=== PATIENT | male | born 1940 | race African-American/Black ===

== ENCOUNTER 2017-04-30 17:06 | Inpatient (IN) | payer OTHER, MEDICARE ==
[2017-04-30] VITALS (18 sets, daily range): BP systolic 50–162; BP diastolic 34–86; PULSE 91–148; RESP 14–20; TEMP 97.2–99.4; O2SAT 80–100
[2017-04-30] MEDS: CHLORHEXIDINE 0.12% (ORAL KIT) 15 ML CUP MT SCH (02:00)
[2017-04-30] MEDS ORDERED: PIPERACIL-TAZO 4.5 GM PREMIX 100 ML IV STA (17:47)
[2017-04-30] MEDS ORDERED: SODIUM CHLOR 0.9% 1000 ML INJ 1,000 ML IV ONE (17:47)
[2017-04-30] MEDS ORDERED: NOREPINEPHRINE-DEXTROSE DRIP 250 ML IV PRN (18:00)
[2017-04-30] MEDS ORDERED: RESP: ALBUTEROL 2.5 MG/IPRATROPIUM 0.5 MG NEB (SCH) NEB ONE (18:00)
[2017-04-30] MEDS ORDERED: VANCOMYCIN INJ 1,000 MG in SODIUM CHLOR 0.9% 250 ML INJ 250 ML IV ONE (18:00)
[2017-04-30] MEDS ORDERED: TERBUTALINE INJ 1 MG/ML AMP SQ PRN (18:00)
--- NOTE | 2017-04-30 18:21 | RADRPT ---
EXAM DATE/TIME: 04/30/2017 18:00 [facility] COMPARISON: No previous studies available for comparison. INDICATIONS : Post intubation and central line placement. MEDICAL HISTORY : Unobtainable. SURGICAL HISTORY : Unobtainable. ENCOUNTER: Initial ACUITY: 1 day PAIN SCORE: Non-responsive. LOCATION: Bilateral chest FINDINGS: I don't have any prior cell. Basilar predominant consolidation and considerable volume loss seen on t he right. There is mild bibasilar consolidation on the left. Small, bilateral pleural effusions are s uspected on both sides. No pneumothorax. Endotracheal tube tip is approximately 4.9 cm above the thomas. There is a left internal jugular cent ral venous catheter with tip in the superior vena cava. CONCLUSION: Right greater the left basilar consolidation. There is considerable right-sided volume loss. Endotrac heal tube and left IJ line appropriate positions as above. Sonu Wesley MD on April 30, 2017 at 18:17 Board Certified Radiologist. This report was verified electronically.
[2017-04-30 18:24] LABS: AUTOMATED NEUTROPHIL # 4.3 TH/MM3 (1.8-7.7); BASOPHIL % 0.3 % (0.0-2.0); HEMATOCRIT 48.1 % (39.0-51.0); HEMOGLOBIN 15.4 GM/DL (13.0-17.0); LYMPH % 27.6 % (9.0-44.0); LYMPHOCYTE # 2.1 TH/MM3 (1.0-4.8); MEAN CELL VOLUME 98.4 FL (80.0-100.0); MEAN CORPUSCULAR HEMOGLOBIN 31.4 PG (27.0-34.0); MEAN CORPUSCULAR HGB CONC 31.9 % (32.0-36.0); MEAN PLATELET VOLUME 8.6 FL (7.0-11.0); MONO % 15.8 % (0.0-8.0); MONOCYTE # 1.2 TH/MM3 (0-0.9); NEUT % 56.3 % (16.0-70.0); PLATELET COUNT 136 TH/MM3 (150-450); RED BLOOD COUNT 4.89 MIL/MM3 (4.50-5.90); WHITE BLOOD COUNT 7.7 TH/MM3 (4.0-11.0)
[2017-04-30 18:28] LABS: INTERNATIONAL NORMALIZED RATIO 1.1 RATIO; PROTHROMBIN TIME - PATIENT 11.4 SEC (9.8-11.6)
[2017-04-30 18:31] LABS: AMORPHOUS SEDIMENT, URINE RARE; BACTERIA, URINE MOD /hpf; BLOOD, URINE MOD (NEG); GLUCOSE,URINE NEG (NEG); HYALINE CAST, URINE 17 /lpf (RARE); KETONE, URINE NEG (NEG); MUCUS URINE FEW /lpf (OCC); NITRITE,URINE NEG (NEG); PH, URINE 5.5 (5.0-8.5); SQUAMOUS EPITHELIAL CELL URINE <1 /hpf (0-5); URINE COLOR LIGHT-RED (YELLW/STRAW); URINE LEUKOCYTE ESTERASE NEG (NEG)
[2017-04-30 18:35] LABS: BILIRUBIN, URINE NEG (NEG)
[2017-04-30 18:39] LABS: ALT (GPT) 33 U/L (12-78)
[2017-04-30 18:41] LABS: ALBUMIN 2.5 GM/DL (3.4-5.0); AST (GOT) 99 U/L (15-37); BICARBONATE 28.8 MEQ/L (21.0-32.0); BLOOD UREA NITROGEN 48 MG/DL (7-18); CALCIUM 8.4 MG/DL (8.5-10.1); CHLORIDE 98 MEQ/L (98-107); CREATININE 1.58 MG/DL (0.60-1.30); GLOMERULAR FILTRATION RATE 52 ML/MIN (>89); GLUCOSE,RANDOM 175 MG/DL (74-106); SODIUM (NA) 142 MEQ/L (136-145)
[2017-04-30] MEDS: NOREPINEPHRINE 4 MG/D5W 250 ML IV PRN ×2 (18:49→23:16)
[2017-04-30 18:53] LABS: ALKALINE PHOSPHATASE 103 U/L (45-117); TOTAL BILIRUBIN ADULT 1.2 MG/DL (0.2-1.0); TOTAL PROTEIN 6.8 GM/DL (6.4-8.2); TROPONIN I 0.07 NG/ML (0.02-0.05)
[2017-04-30] MEDS ORDERED: FUROSEMIDE 20 MG/2 ML VIAL IV PUSH ONE (19:00)
--- NOTE | 2017-04-30 19:04 | PD ---
HPI Chief Complaint: Code Blue Time Seen by Provider: 17:47 Travel History International Travel<30 days: No Contact w/Intl Traveler<30days: No Traveled to known affect area: No History of Present Illness HPI Patient is a 77-year-old male brought in by EMS status post cardiac arrest. EMS states they gave him 3 epinephrine in a dose of bicarb with return of spontaneous circulation after approximately 15-20 minutes. Family states that they were with him, he seemed to perhaps be a little short of breath, but was not complaining of anything. One son left and 30 minutes later another son arrived and found him slumped in the chair. Family states he has a history of high blood pressure and prostate cancer, no heart problems that they know of. Patient is unresponsive, intubated, cannot provide history. PFSH Past Medical History Medical History: Unable to Obtain Tetanus Vaccination: Unknown Past Surgical History Surgical History: Unable to Obtain Social History Alcohol Use: No (UNABLE TO OBTAIN) Tobacco Use: No (UNABLE TO OBTAIN) Substance Use: No (UNABLE TO OBTAIN) Allergies-Medications (Allergen,Severity, Reaction): Coded Allergies: Unable to Assess (Verified Allergy, Unknown, 04/30/17) Reported Meds & Prescriptions Reported Meds & Active Scripts Active Active Prescriptions or Reported Medications Unobtainable Review of Systems ROS Limitations: Clinical Condition Physical Exam Exam Limitations: Clinical Condition Narrative GENERAL: Unresponsive, intubated. SKIN: Focused skin assessment warm/dry. No wounds or signs of infection. HEAD: Atraumatic. Normocephalic. EYES: Pupils fixed and dilated. No scleral icterus. ENT: No nasal bleeding or discharge. Mucous membranes pink and moist. NECK: Trachea midline. Positive JVD CARDIOVASCULAR: Regular rate and rhythm. No murmur appreciated. RESPIRATORY: Crackles in both lungs. Breath sounds equal bilaterally. GASTROINTESTINAL: Abdomen soft, non-tender, nondistended. MUSCULOSKELETAL: No obvious deformities. No clubbing. No cyanosis. No edema. NEUROLOGICAL: Unresponsive, no spontaneous movements. Data Data Last Documented VS Vital Signs Date Time Temp Pulse Resp B/P (MAP) Pulse Ox O2 Delivery O2 Flow Rate FiO2 04/30/17 18:49 124 82/51 04/30/17 18:42 18 90 Ventilator 04/30/17 18:18 100 04/30/17 17:39 97.9 Orders Orders Complete Blood Count With Diff (04/30/17 17:47) Comprehensive Metabolic Panel (04/30/17 17:47) Prothrombin Time / Inr (Pt) (04/30/17 17:47) Act Partial Throm Time (Ptt) (04/30/17 17:47) Lactic Acid Sepsis Protocol (04/30/17 17:47) Ckmb (Isoenzyme) Profile (04/30/17 17:47) Troponin I (04/30/17 17:47) Urinalysis - C+S If Indicated (04/30/17 17:47) Blood Culture (04/30/17 17:47) Chest, Single Ap (04/30/17 17:47) Blood Glucose (04/30/17 17:47) Ecg Monitoring (04/30/17:47) Iv Access Insert/Monitor (04/30/17:47) Oximetry (04/30/17 17:47) Oxygen Administration (04/30/17 17:47) Ct Brain W/O Iv Contrast(Rout) (04/30/17 17:47) Piperacil-Tazo 4.5 Gm Premix (Zosyn 4.5 (04/30/17 17:47) Sodium Chlor 0.9% 1000 Ml Inj (Ns 1000 M (04/30/17 17:47) Vancomycin Inj (Vancomycin Inj) (04/30/17 18:00) Terbutaline Inj (Brethine Inj) (04/30/17 18:00) Albuterol-Ipratropium Neb (Duoneb Neb) (04/30/17 18:00) Norepinephrine-Dextrose Drip (Levophed-D (04/30/17 18:30) Urine Culture (04/30/17 17:50) Furosemide Inj (Lasix Inj) (05/01/17 09:00) CKMB (04/30/17 17:50) CKMB% (04/30/17 17:50) ^ Orogastric Tube (04/30/17 18:53) Insert Temp Sensing Parikh Cath (04/30/17 18:53) Furosemide Inj (Lasix Inj) (04/30/17 19:00) Labs Laboratory Tests Test 04/30/17 17:50 04/30/17 18:12 White Blood Count 7.7 TH/MM3 Red Blood Count 4.89 MIL/MM3 Hemoglobin 15.4 GM/DL Hematocrit 48.1 % Mean Corpuscular Volume 98.4 FL Mean Corpuscular Hemoglobin 31.4 PG Mean Corpuscular Hemoglobin Concent 31.9 % Red Cell Distribution Width 15.0 % Platelet Count 136 TH/MM3 Mean Platelet Volume 8.6 FL Neutrophils (%) (Auto) 56.3 % Lymphocytes (%) (Auto) 27.6 % Monocytes (%) (Auto) 15.8 % Eosinophils (%) (Auto) 0.0 % Basophils (%) (Auto) 0.3 % Neutrophils # (Auto) 4.3 TH/MM3 Lymphocytes # (Auto) 2.1 TH/MM3 Monocytes # (Auto) 1.2 TH/MM3 Eosinophils # (Auto) 0.0 TH/MM3 Basophils # (Auto) 0.0 TH/MM3 CBC Comment AUTO DIFF Prothrombin Time 11.4 SEC Prothromb Time International Ratio 1.1 RATIO Activated Partial Thromboplast Time 29.4 SEC Urine Color LIGHT-RED Urine Turbidity HAZY Urine pH 5.5 Urine Specific [place] 1.021 Urine Protein 100 mg/dL Urine Glucose (UA) NEG mg/dL Urine Ketones NEG mg/dL Urine Occult Blood MOD Urine Nitrite NEG Urine Bilirubin NEG Urine Urobilinogen 4.0 MG/DL Urine Leukocyte Esterase NEG Urine RBC 1 /hpf Urine WBC 2 /hpf Urine Squamous Epithelial Cells <1 /hpf Urine Amorphous Sediment RARE Urine Bacteria MOD /hpf Urine Hyaline Casts 17 /lpf Urine Mucus FEW /lpf Microscopic Urinalysis Comment CATH-CULTURE IND Blood Urea Nitrogen 48 MG/DL Creatinine 1.58 MG/DL Random Glucose 175 MG/DL Total Protein 6.8 GM/DL Albumin 2.5 GM/DL Calcium Level 8.4 MG/DL Alkaline Phosphatase 103 U/L Aspartate Amino Transf (AST/SGOT) 99 U/L Alanine Aminotransferase (ALT/SGPT) 33 U/L Total Bilirubin 1.2 MG/DL Sodium Level 142 MEQ/L Potassium Level 3.8 MEQ/L Chloride Level 98 MEQ/L Carbon Dioxide Level 28.8 MEQ/L Anion Gap 15 MEQ/L Estimat Glomerular Filtration Rate 52 ML/MIN Total Creatine Kinase 1930 U/L Troponin I 0.07 NG/ML MDM Medical Decision Making Medical Screen Exam Complete: Yes Emergency Medical Condition: Yes Interpretation(s) ECG shows A. fib with ST depression in leads V4 through V5. Differential Diagnosis NM versus pneumonia versus sepsis versus ICH Narrative Course Patient is a 77-year-old male who comes in status post cardiac arrest. Patient is unresponsive on arrival, intubated. ET tube was confirmed in place on arrival. Patient started on levo fed on arrival, given a liter of fluids. Labs sent show an elevated total CK. BUN is 48, creatinine is 1.58. Troponin is 0.07 CT head ordered. Chest x-ray shows that ET tube in place, large pulmonary edema. Patient given a small dose of Lasix. Patient will be admitted for further management. Critical Care Narrative Aggregate critical care time was 45 minutes. Time to perform other separately billable procedures was not included in the critical care time. My time did not include minutes spent treating any other patients simultaneously or on activities that did not directly contribute to the patient's treatment. The services I provided to this patient were to treat and/or prevent clinically significant deterioration that could result in: Serious illness or I provided critical care services requiring my management, as noted below: Chart data review, documentation time, medication orders and management, vital sign assessments/reviewing monitor data, ordering and reviewing lab tests, ordering and interpreting/reviewing x-rays and diagnostic studies, care of the patient and discussion of the patient with the admitting physicians. Procedures Procedure Narrative CENTRAL VENOUS LINE: The site was prepped with Betadine and sterilely draped. It was infiltrated with 1% lidocaine plain. The deep vein was cannulated using normal Seldinger technique. A triple lumen central line was placed in the left IJ site and secured with simple interrupted suture. The site was sterilely dressed. The patient tolerated the procedure well. Diagnosis Primary Impression: Cardiac arrest Additional Impressions: Respiratory failure Qualified Codes: J96.01 - Acute respiratory failure with hypoxia; J96.02 - Acute respiratory failure with hypercapnia Rhabdomyolysis Qualified Codes: M62.82 - Rhabdomyolysis Admitting Information Admitting Physician Requests: Admit Scripts Unable to Obtain Active Prescriptions or Reported Meds Debra Khan MD Apr 30, 2017 19:04
[2017-04-30 19:11] LABS: LACTIC ACID SEPSIS PROTOCOL 7.1 mmol/L (0.4-2.0)
[2017-04-30 19:23] LABS: BANDS 12 % (0-6); CORRECTED NUCLEATED RBC 11 /100 WBC (0-0); LYMPHOCYTES 17 % (9-44); METAMYELOCYTES 1 % (0-1); MONOCYTES 22 % (0-8); NEUTROPHIL # MANUAL DIFF 4.7 TH/MM3 (1.8-7.7); NUCLEATED RED BLOOD CELL 11 (0-0); POLYS (SEG NEUTROPHILS) 48 % (16-70)
[2017-04-30 19:24] LABS: OVALOCYTES 1+ (NORMAL)
[2017-04-30 19:25] LABS: BURR CELLS 1+ (NORMAL)
--- NOTE | 2017-04-30 19:37 | RADRPT ---
EXAM DATE/TIME: 04/30/2017 19:29 [facility] COMPARISON: No previous studies available for comparison. INDICATIONS : Altered mental status, post code. RADIATION DOSE: 37.96 CTDIvol (mGy) MEDICAL HISTORY : Non-responsive. SURGICAL HISTORY : Non-responsive. ENCOUNTER: Initial ACUITY: 1 day PAIN SCALE: Non-responsive LOCATION: cranial TECHNIQUE: Multiple contiguous axial images were obtained of the head. Using automated exposure control and adj ustment of the mA and/or kV according to patient size, radiation dose was kept as low as reasonably a chievable to obtain optimal diagnostic quality images. DICOM format image data is available electro nically for review and comparison. FINDINGS: Diffuse low attenuation brain parenchyma with minimal montero/white matter differentiation. No bleed. No midline shift. No perceptible mass lesion. CONCLUSION: Diffusely abnormal brain with edema and loss of montero-white differentiation, presumably a global hypox ic event. No bleed or focal abnormality demonstrated. Sonu Wesley MD on April 30, 2017 at 19:33 Board Certified Radiologist. This report was verified electronically.
[2017-04-30] MEDS ORDERED: MISCELLANEOUS NURSING INFORMATION XX SCH (20:00)
[2017-04-30] MEDS ORDERED: BISACODYL 10 MG SUPP RECTAL PRN (20:00)
[2017-04-30] MEDS ORDERED: SENNOSIDES 8.6 MG TAB PO PRN (20:00)
[2017-04-30] MEDS ORDERED: SODIUM CHLORIDE 0.9% FLUSH 10 ML FLUSH IV FLUSH PRN (20:00)
[2017-04-30] MEDS ORDERED: MAGNESIUM HYDROXIDE SUSP 30 ML CUP PO PRN (20:00)
[2017-04-30] MEDS ORDERED: CHLORHEXIDINE GLUCONATE 2 % 1 PACK (2 CLOTHS) TOP PRN (20:00)
[2017-04-30] MEDS ORDERED: ONDANSETRON HCL 4 MG/2 ML VIAL IV PUSH PRN (20:00)
[2017-04-30] MEDS ORDERED: LACTULOSE SYRUP 20 GM/30 ML CUP PO PRN (20:00)
--- NOTE | 2017-04-30 20:44 | HHI.HP ---
HPI Service Critical Care Medicine Primary Care Physician Unknown Admission Diagnosis Cardiac arrest, ARDS Diagnosis: Travel History International Travel<30 Days: No Contact w/Intl Traveler <30 Da: No Traveled to Known Affected Are: No History of Present Illness 77-year-old male admitted status post cardiac arrest. Per EMS report they gave him 3 epinephrine and a dose of bicarb with return of spontaneous circulation after approximately 15-20 minutes. Family states that they were with him, he seemed to perhaps be a little short of breath, but was not complaining of anything. One son left and 30 minutes later another son arrived and found him slumped in the chair. Family states he has a history of high blood pressure and prostate cancer, no heart problems that they know of. In the emergency department patient is intubated, unresponsive, with myoclonic jerks in all 4 extremities. Review of Systems ROS Unable to obtain Past Family Social History Allergies: Coded Allergies: Unable to Assess (Verified Allergy, Unknown, 04/30/17) Past Medical History Hypertension Prostate cancer Past Surgical History Unable to obtain Reported Medications Reported Meds & Active Scripts Active Active Prescriptions or Reported Medications Unobtainable Active Ordered Medications Current Medications Medications (Trade) Dose Ordered Sig/Chidi Route PRN Reason Start Time Stop Time Status Last Admin Dose Admin Terbutaline Sulfate (Brethine Inj) 1 mg UNSCH PRN SQ For Extravasation 04/30/17 18:00 Norepinephrine Bitartrate 250 ml @ 7.5 mls/hr TITRATE PRN IV BLOOD PRESSURE MANAGEMENT 04/30/17 18:30 04/30/17 23:16 Sodium Chloride 1,000 ml @ 124 mls/hr Q8H4M IV 04/30/17 20:00 04/30/17 22:52 Sodium Chloride (NS Flush) 2 ml UNSCH PRN IV FLUSH FLUSH AFTER USING IV ACCESS 04/30/17 20:00 Sodium Chloride (NS Flush) 2 ml BID IV FLUSH 04/30/17 21:00 Acetaminophen (Tylenol) 650 mg Q6H PRN PO PAIN 1-10 AND/OR FEVER >101F 04/30/17 20:00 Famotidine (Pepcid Inj) 20 mg Q12HR IV PUSH 04/30/17 21:00 04/30/17 21:24 Lorazepam (Ativan Inj) 1 mg Q1H PRN IV PUSH Agitation/Sedation 04/30/17 20:00 04/30/17 23:17 Artificial Tears (Tears Naturale Opth Soln) 1 drop TID EACH EYE 05/01/17 09:00 Ondansetron HCl (Zofran Inj) 4 mg Q6H PRN IV PUSH NAUSEA OR VOMITING 04/30/17 20:00 Albuterol/ Ipratropium (Duoneb Neb) 1 ampule Q2HR NEB PRN INH WHEEZING 04/30/17 20:00 Heparin Sodium (Porcine) (Heparin Inj) 5,000 units Q8HR SQ 04/30/17 22:00 04/30/17 22:53 Miscellaneous Information 1 [id number] XX 04/30/17 20:00 Chlorhexidine Gluconate (Chlorhexidine 2% Cloth) 3 pack Taper DAILY@04 TOP 05/01/17 04:00 04/27/18 03:59 Chlorhexidine Gluconate (Chlorhexidine 2% Cloth) 3 pack UNSCH PRN TOP HYGIENIC CARE 04/30/17 20:00 Senna/Docusate Sodium (Sophy-Colace) 1 tab BID PO 04/30/17 21:00 Magnesium Hydroxide (Milk Of Magnesia Liq) 30 ml Q12H PRN PO Mild constipation 04/30/17 20:00 Sennosides (Senokot) 17.2 mg Q12H PRN PO Moderate constipation 04/30/17 20:00 Bisacodyl (Dulcolax Supp) 10 mg DAILY PRN RECTAL SEVERE CONSITIPATION 04/30/17 20:00 Lactulose (Lactulose Liq) 30 ml DAILY PRN PO SEVERE CONSITIPATION 04/30/17 20:00 Chlorhexidine Gluconate (Peridex 0.12% Liq) 15 ml BID@08,20 MT 04/30/17 20:00 Midazolam HCl 100 ml @ 2 mls/hr TITRATE PRN IV SEDATION 04/30/17 20:00 04/30/17 21:24 Levetriacetam 100 ml @ 400 mls/hr Q12HR IV 04/30/17 21:00 04/30/17 22:52 Family History Unobtainable Social History Unobtainable Physical Exam Vital Signs Vital Signs Date Time Temp Pulse Resp B/P (MAP) Pulse Ox O2 Delivery O2 Flow Rate FiO2 04/30/17 20:40 94 100 04/30/17 19:30 140 20 124/78 (93) 94 Ventilator 100 04/30/17 19:25 100 100 04/30/17 19:19 97.2 133 20 124/74 (91) 90 Ventilator 100 04/30/17 19:00 138 18 129/84 (99) 91 Ventilator 04/30/17 18:49 124 82/51 04/30/17 18:42 134 18 138/73 (94) 90 Ventilator 04/30/17 18:18 90 Ventilator 100 04/30/17 18:18 90 Ventilator 100 04/30/17 18:15 148 18 114/75 (88) 92 Ventilator 04/30/17 18:00 116 18 82/56 (65) 91 Ventilator 04/30/17 17:47 80 100 04/30/17 17:47 80 15.00 100 04/30/17 17:40 100 04/30/17 17:39 97.9 122 14 162/86 (111) 85 Ventilator 100 04/30/17 17:28 100 04/30/17 17:26 98.1 103 14 106/78 (87) Ventilator 100 04/30/17 17:11 91 16 50/34 (39) 97 Physical Exam GENERAL: Sedated and unresponsive comatose elderly gentleman SKIN: Warm and dry. HEAD: Normocephalic. EYES: No scleral icterus. No injection or drainage. NECK: Supple, trachea midline. No JVD or lymphadenopathy. CARDIOVASCULAR: Regular rate and rhythm without murmurs, gallops, or rubs. RESPIRATORY: Breath sounds equal bilaterally. No accessory muscle use. GASTROINTESTINAL: Abdomen soft, non-tender, nondistended. MUSCULOSKELETAL: No cyanosis, or edema. Myoclonic jerks in all 4 extremities BACK: Nontender without obvious deformity. NEURO EXAM: GCS: 3 Mental Status: The patient is unresponsive to verbal or painful stimuli Laboratory Laboratory Tests Test 04/30/17 17:50 04/30/17 18:12 04/30/17 20:24 White Blood Count 7.7 Red Blood Count 4.89 Hemoglobin 15.4 Hematocrit 48.1 Mean Corpuscular Volume 98.4 Mean Corpuscular Hemoglobin 31.4 Mean Corpuscular Hemoglobin Concent 31.9 Red Cell Distribution Width 15.0 Platelet Count 136 Mean Platelet Volume 8.6 Neutrophils (%) (Auto) 56.3 Lymphocytes (%) (Auto) 27.6 Monocytes (%) (Auto) 15.8 Eosinophils (%) (Auto) 0.0 Basophils (%) (Auto) 0.3 Neutrophils # (Auto) 4.3 Lymphocytes # (Auto) 2.1 Monocytes # (Auto) 1.2 Eosinophils # (Auto) 0.0 Basophils # (Auto) 0.0 CBC Comment AUTO DIFF Differential Total Cells Counted 100 Neutrophils % (Manual) 48 Band Neutrophils % 12 Lymphocytes % 17 Monocytes % 22 Neutrophils # (Manual) 4.7 Metamyelocytes 1 Nucleated Red Blood Cells 11 Differential Comment FINAL DIFF MANUAL Platelet Estimate LOW Platelet Morphology Comment NORMAL Ovalocytes 1+ [place] Cells 1+ Prothrombin Time 11.4 Prothromb Time International Ratio 1.1 Activated Partial Thromboplast Time 29.4 Urine Color LIGHT-RED Urine Turbidity HAZY Urine pH 5.5 Urine Specific [place] 1.021 Urine Protein 100 Urine Glucose (UA) NEG Urine Ketones NEG Urine Occult Blood MOD Urine Nitrite NEG Urine Bilirubin NEG Urine Urobilinogen 4.0 Urine Leukocyte Esterase NEG Urine RBC 1 Urine WBC 2 Urine Squamous Epithelial Cells <1 Urine Amorphous Sediment RARE Urine Bacteria MOD Urine Hyaline Casts 17 Urine Mucus FEW Microscopic Urinalysis Comment CATH-CULTURE IND Blood Gas Puncture Site RT RADIAL Blood Gas Patient Temperature 98.6 Blood Gas HCO3 24 Blood Gas Base Excess -3.5 Blood Gas Oxygen Saturation 94 Arterial Blood pH 7.16 Arterial Blood Partial Pressure CO2 71 Arterial Blood Partial Pressure O2 110 Arterial Blood Oxygen Content 19.6 Arterial Blood Carboxyhemoglobin 2.3 Arterial Blood Methemoglobin 0.3 Blood Gas Hemoglobin 14.8 Oxygen Delivery Device VENTILATOR Blood Gas Ventilator Setting Blood Gas Inspired Oxygen 100 Blood Urea Nitrogen 48 Creatinine 1.58 Random Glucose 175 Total Protein 6.8 Albumin 2.5 Calcium Level 8.4 Alkaline Phosphatase 103 Aspartate Amino Transf (AST/SGOT) 99 Alanine Aminotransferase (ALT/SGPT) 33 Total Bilirubin 1.2 Sodium Level 142 Potassium Level 3.8 Chloride Level 98 Carbon Dioxide Level 28.8 Anion Gap 15 Estimat Glomerular Filtration Rate 52 Total Creatine Kinase 1930 Creatine Kinase MB 24.7 Creatine Kinase MB % 1.3 Troponin I 0.07 Lactic Acid Level 7.1 Date/Time Source Procedure Growth Status 04/30/17 18:15 Blood Peripheral Aerobic Blood Culture Pending Received 04/30/17 18:15 Blood Peripheral Anaerobic Blood Culture Pending Received 04/30/17 17:50 Urine Catheterized Urine Urine Culture Pending Received Result Diagram: 04/30/[id number]/30/171749 Imaging Last [address] 04/30/171746 Signed Impressions: Service Date/Time: April 19:29 - CONCLUSION: Diffusely abnormal brain with edema and loss of montero-white differentiation, presumably a global hypoxic event. No bleed or focal abnormality demonstrated. Sonu Wesley MD Chest X-Ray 04/30/171746 Signed Impressions: Service Date/Time: April 18:00 - CONCLUSION: Right greater the left basilar consolidation. There is considerable right-sided volume loss. Endotracheal tube and left IJ line appropriate positions as above. Sonu Wesley MD Septic Shock Reassessment Septic shock perfusion: reassessment completed Caprini VTE Risk Assessment Caprini VTE Risk Assessment: Mod/High Risk (score >= 2) Caprini Risk Assessment Model Point Value = 1 Point Value = 2 Point Value = 3 Point Value = 5 Age 41-60 Minor surgery BMI > 25 kg/m2 Swollen legs Varicose veins or History of unexplained or recurrent spontaneous Oral contraceptives or hormone replacement Sepsis (< 1 month) Serious lung disease, including pneumonia (< 1 month) Abnormal pulmonary function Acute myocardial infarction Congestive heart failure (< 1 month) History of inflammatory bowel disease Medical patient at bed rest Age 61-74 Arthroscopic surgery Major open surgery (> 45 min) Laparoscopic surgery (> 45 min) Malignancy Confined to bed (> 72 hours) Immobilizing plaster cast Central venous access Age >= 75 History of VTE Family history of VTE Factor V Leiden Prothrombin [id number] Lupus anticoagulant Anticardiolipin antibodies Elevated serum homocysteine Heparin-induced thrombocytopenia Other congenital or acquired thrombophilia Stroke (< 1 month) Elective arthroplasty Hip, pelvis, or leg fracture Acute spinal cord injury (< 1 month) Prophylaxis Regimen Total Risk Factor Score Risk Level Prophylaxis Regimen 0-1 Low Early ambulation 2 Moderate Order ONE of the following: *Sequential Compression Device (SCD) *Heparin 5000 units SQ BID 3-4 Higher Order ONE of the following medications: *Heparin 5000 units SQ TID *Enoxaparin/Lovenox 40 mg SQ daily (WT < 150 kg, CrCl > 30 mL/min) *Enoxaparin/Lovenox 30 mg SQ daily (WT < 150 kg, CrCl > 10-29 mL/min) *Enoxaparin/Lovenox 30 mg SQ BID (WT < 150 kg, CrCl > 30 mL/min) AND/OR *Sequential Compression Device (SCD) 5 or more Highest Order ONE of the following medications: *Heparin 5000 units SQ TID (Preferred with Epidurals) *Enoxaparin/Lovenox 40 mg SQ daily (WT < 150 kg, CrCl > 30 mL/min) *Enoxaparin/Lovenox 30 mg SQ daily (WT < 150 kg, CrCl > 10-29 mL/min) *Enoxaparin/Lovenox 30 mg SQ BID (WT < 150 kg, CrCl > 30 mL/min) AND *Sequential Compression Device (SCD) Assessment and Plan Assessment and Plan Respiratory failure - Status post cardiac arrest - Continue mechanical ventilation - Intubated for an airway protection - No weaning until neurologically improved - Vent bundle - DuoNeb's when necessary Cardiac arrest - Status post prolonged CPR - Likely prolonged downtime prior the CPR - Diffuse anoxic changes on the CT brain - No indication for hypothermia protocol due to already severely damaged 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 Time to perform other separately billable procedures was not included in the critical care time. Baldev Vazquez MD Apr 30, 2017 8:44 pm
[2017-04-30] MEDS ORDERED: RASS Change Order XX ONE (20:45)
[2017-04-30] MEDS: DOCUSATE SODIUM 50 MG/SENNA 8.6 MG TAB PO SCH (21:00)
[2017-04-30] MEDS: SODIUM CHLORIDE 0.9% FLUSH 10 ML FLUSH IV FLUSH SCH (21:00)
[2017-04-30] MEDS: SODIUM CHLOR 0.9% 1000 ML INJ 1,000 ML IV SCH ×2 (21:24→22:52)
[2017-04-30] MEDS: MIDAZOLAM 100 MG/100 ML INJ 100 ML IV PRN (21:24)
[2017-04-30] MEDS: FAMOTIDINE 20 MG/2 ML VIAL IV PUSH SCH (21:24)
[2017-04-30] MEDS: LORazepam 2 MG/ML VIAL IV PUSH PRN ×2 (21:25→23:17)
[2017-04-30] MEDS: levETIRAcetam INJ 100 ML IV SCH (22:52)
[2017-04-30] MEDS: HEPARIN SODIUM - SQ 10,000 UNITS/ML VIAL SQ SCH (22:53)
[2017-05-01] VITALS (12 sets, daily range): BP systolic 79–141; BP diastolic 55–86; PULSE 97–121; RESP 18; TEMP 100.3–103.9; O2SAT 94–98
[2017-05-01] MEDS: LORazepam 2 MG/ML VIAL IV PUSH PRN (01:51)
[2017-05-01] MEDS: CHLORHEXIDINE GLUCONATE 2 % 1 PACK (2 CLOTHS) TOP SCH (04:00)
[2017-05-01] MEDS: ACETAMINOPHEN 325 MG TAB PO PRN ×3 (04:59→21:58)
[2017-05-01] MEDS: HEPARIN SODIUM - SQ 10,000 UNITS/ML VIAL SQ SCH ×3 (04:59→21:56)
[2017-05-01] MEDS: NOREPINEPHRINE 4 MG/D5W 250 ML IV PRN ×3 (04:59→18:49)
[2017-05-01 05:26] LABS: AUTOMATED NEUTROPHIL # 4.9 TH/MM3 (1.8-7.7); BASOPHIL % 0.2 % (0.0-2.0); HEMATOCRIT 49.7 % (39.0-51.0); HEMOGLOBIN 16.8 GM/DL (13.0-17.0); MEAN CELL VOLUME 93.2 FL (80.0-100.0); MEAN CORPUSCULAR HEMOGLOBIN 31.4 PG (27.0-34.0); MEAN CORPUSCULAR HGB CONC 33.7 % (32.0-36.0); MONO % 19.5 % (0.0-8.0); MONOCYTE # 1.4 TH/MM3 (0-0.9); NEUT % 66.3 % (16.0-70.0); PLATELET COUNT 151 TH/MM3 (150-450); RED BLOOD COUNT 5.34 MIL/MM3 (4.50-5.90); RED CELL DISTRIBUTION WIDTH 14.8 % (11.6-17.2); WHITE BLOOD COUNT 7.4 TH/MM3 (4.0-11.0)
[2017-05-01 05:32] LABS: INTERNATIONAL NORMALIZED RATIO 1.1 RATIO; PROTHROMBIN TIME - PATIENT 11.5 SEC (9.8-11.6)
[2017-05-01 05:49] LABS: ALBUMIN 2.6 GM/DL (3.4-5.0); AST (GOT) 141 U/L (15-37); BICARBONATE 31.5 MEQ/L (21.0-32.0); BLOOD UREA NITROGEN 38 MG/DL (7-18); CALCIUM 7.8 MG/DL (8.5-10.1); CHLORIDE 100 MEQ/L (98-107); CREATININE 1.01 MG/DL (0.60-1.30); GLOMERULAR FILTRATION RATE 87 ML/MIN (>89); GLUCOSE,RANDOM 126 MG/DL (74-106); MAGNESIUM 2.2 MG/DL (1.5-2.5); SODIUM (NA) 141 MEQ/L (136-145)
[2017-05-01 05:55] LABS: ALKALINE PHOSPHATASE 99 U/L (45-117); ALT (GPT) 36 U/L (12-78); TOTAL BILIRUBIN ADULT 1.1 MG/DL (0.2-1.0); TOTAL PROTEIN 6.7 GM/DL (6.4-8.2); TROPONIN I 0.35 NG/ML (0.02-0.05)
[2017-05-01 07:11] LABS: BANDS 15 % (0-6); CORRECTED NUCLEATED RBC 3 /100 WBC (0-0); LYMPHOCYTES 16 % (9-44); METAMYELOCYTES 1 % (0-1); MONOCYTES 19 % (0-8); NEUTROPHIL # MANUAL DIFF 4.8 TH/MM3 (1.8-7.7); NUCLEATED RED BLOOD CELL 3 (0-0); POLYS (SEG NEUTROPHILS) 49 % (16-70)
[2017-05-01] MEDS: SODIUM CHLOR 0.9% 1000 ML INJ 1,000 ML IV SCH ×2 (07:14→09:05)
[2017-05-01] MEDS ORDERED: FUROSEMIDE 20 MG/2 ML VIAL IV PUSH SCH (09:00)
[2017-05-01] MEDS ORDERED: ROCURONIUM INJ 50 MG/5 ML VIAL IV ONE (09:00)
[2017-05-01] MEDS: FAMOTIDINE 20 MG/2 ML VIAL IV PUSH SCH ×2 (09:03→21:55)
[2017-05-01] MEDS: levETIRAcetam INJ 100 ML IV SCH ×2 (09:04→21:55)
[2017-05-01] MEDS: DOCUSATE SODIUM 50 MG/SENNA 8.6 MG TAB PO SCH ×2 (09:04→21:56)
[2017-05-01] MEDS ORDERED: Vancomycin Consult Pharmacy 1 EA OTHER SCH (09:15)
[2017-05-01] MEDS ORDERED: VANCOMYCIN INJ 1,000 MG in SODIUM CHLOR 0.9% 250 ML INJ 250 ML IV ONE (09:15)
[2017-05-01] MEDS: CHLORHEXIDINE 0.12% (ORAL KIT) 15 ML CUP MT SCH ×2 (09:16→21:54)
[2017-05-01] MEDS: SODIUM CHLORIDE 0.9% FLUSH 10 ML FLUSH IV FLUSH SCH ×2 (10:04→21:55)
--- NOTE | 2017-05-01 10:12 | PD.CONS ---
Consult Service Palliative Care Consult Requested By Primary Care Physician Unknown Reason for Consultation a. To assist with evaluation and management of symptoms including:shortness of breath b. To assist medical decision maker(s) with: better understanding of current medical conditions; weighing benefits/burdens of medical treatment options; making medical treatment decisions. HPI History of Present Illness Mr. Valencia is a 77 years old with a past medical history of prostate cancer, and hypertension. Patient was brought in by EMS after a cardiac arrest. Per EMS report, patient had return of spontaneous circulation 15-20minutes after they had administered 3 amps epinephrine and 1 amp bicarb. According to family, patient appeared to be short of breath when he was last seen 30 minutes prior to being found by one of his sons slumped over in a chair unresponsive. Patient was intubated in the field. Patient was unresponsive on arrival and was having myoclonic jerks to all 4 extremities in the ER. ER Course: * Vital signs: Pulse 124, BP 82/51, respiratory rate 18, O2 saturation 90% on FiO2 100% * 1000ml NS administered and patient was started on a Levophed drip * EKG revealed A. fib with ST depression in leads V4 through V5 * Head CT revealed diffusely abnormal brain with edema and loss of montero-white differentiation presumably a global hypoxic event. No bleed or focal abnormal mobility demonstrated. * Laboratory workup revealed BUN/creatinine 48/1.58, lactic acid 7.1, total bilirubin 1.2, AST 99, ALT 33, total creatinine kinase 1930, CK-MB 24.7, troponin 0.07 * Chest x-ray revealed right greater than left basilar consolidation. There is considerable right-sided volume loss. * Lasix administered * UA culture indicated * Blood cultures drawn Critical care doctor Dr. Vazquez consulted. Hypothermia protocol not indicated due to severely damaged WAREHOUSE HELPER on arrival. Patient seen and examined on CVICU. Patient is intubated, sedated and on mechanical ventilation. Vent settings PRVC/AC 18/ 550/1.0s/10/100% with O2 saturation of 94%. No spontaneous respirations. Yeehlsejgtg470.2 degrees F. Foster cultures sent, patient started on vancomycin and Zosyn. Chest x-ray today revealed interval improvement of pulmonary vascular congestion bilaterally and right basilar patient is consistent with possible pneumonia. Meeting with patient`s eldest son Hector French Jr and some family friends. Updated on medical status. Obtained psychosocial history and medical history. Reviewed events that happened, prior to hospitalization. Per Manolo Oseguera, patient does not have advanced directives. Addressed code status, discussed risks, benefits and limitations of CPR given recent cardiac arrest. Patient's son stated that he wants patient to remain a full code and wants him to be resuscitated. Explained possible complications that patient will most likely face given the severity of the results from head CT. Family friend present during meeting encouraged patient`s son to press for aggressive treatment despite how bad diagnostic tests are and clinical presentation. Patient`s son stated that at this time he is not ready to "let go", though he stated that he would appreciate updates that way he can make informed decisions. Telephone call to patient`s other two children Luis Antonio Young and Amy Martines. Updated them on patient`s condition and readdressed code status with them. They both want patient to be a full code and they both deferred further medical decision making to their eldest brother Manolo Young. Case discussed with bedside RN and Dr. Ascencio. Function/Cognitive Trajectory Patient was independent with all his ADLs and able to verbalize needs prior to hospitalization. Patient`s son Jagdish Oseguera reported that patient has been complaining of feeling tired for the past few days and complaining of pain to his right knee. Some friends who were in the family conference mentioned that they noted that patient had slurred speech about a day prior to cardiac arrest which resolved by itself. . Review of Systems ROS Limitations: Clinical Condition, Intubated Constitutional: COMPLAINS OF: Fatigue, DENIES: Weight loss Eyes: DENIES: Eye inflammation Ears, nose, mouth, throat: DENIES: Nasal discharge Respiratory: COMPLAINS OF: Shortness of breath, DENIES: Cough Cardiovascular: DENIES: Lower Extremity Edema Gastrointestinal: DENIES: Diarrhea, Nausea, Vomiting Genitourinary: DENIES: Urinary incontinence Musculoskeletal: COMPLAINS OF: Joint pain Hematologic/Lymphatics: DENIES: Bruising Neurologic: DENIES: Localized weakness, Speech Problems Psychiatric: DENIES: Confusion, Depression Other ROS: ROS obtained from EMR, family and clinical observation. . Past Family Social History Coded Allergies: Unable to Assess (Verified Allergy, Unknown, 04/30/17) Past Medical History Hypertension Prostate cancer . Past Surgical History None reported . Reported Medications Hypertension medication per son-does not remember name or dosage . Current Medications Medications (Trade) Dose Ordered Sig/Chidi Route Start Time Stop Time Status Last Admin (Brethine Inj) 1 mg UNSCH PRN SQ 04/30/17 18:00 Norepinephrine Bitartrate 250 ml @ 7.5 mls/hr TITRATE PRN IV 04/30/17 18:30 05/01/17 04:59 Sodium Chloride 1,000 ml @ 124 mls/hr Q8H4M IV 04/30/17 20:00 05/01/17 09:05 (NS Flush) 2 ml UNSCH PRN IV FLUSH 04/30/17 20:00 (NS Flush) 2 ml BID IV FLUSH 04/30/17 21:00 (Tylenol) 650 mg Q6H PRN PO 04/30/17 20:00 05/01/17 04:59 (Pepcid Inj) 20 mg Q12HR IV PUSH 04/30/17 21:00 05/01/17 09:03 (Ativan Inj) 1 mg Q1H PRN IV PUSH 04/30/17 20:00 05/01/17 01:51 (Tears Naturale Opth Soln) 1 drop TID EACH EYE 05/01/17 09:00 (Zofran Inj) 4 mg Q6H PRN IV PUSH 04/30/17 20:00 (Duoneb Neb) 1 ampule Q2HR NEB PRN INH 04/30/17 20:00 (Heparin Inj) 5,000 units Q8HR SQ 04/30/17 22:00 05/01/17 04:59 Miscellaneous Information 1 Q361D XX 04/30/17 20:00 04/30/17 20:00 (Chlorhexidine 2% Cloth) 3 pack Taper DAILY@04 TOP 05/01/17 04:00 04/27/18 03:59 05/01/17 04:00 (Chlorhexidine 2% Cloth) 3 pack UNSCH PRN TOP 04/30/17 20:00 (Sophy-Colace) 1 tab BID PO 04/30/17 21:00 05/01/17 09:04 (Milk Of Magnesia Liq) 30 ml Q12H PRN PO 04/30/17 20:00 (Senokot) 17.2 mg Q12H PRN PO 04/30/17 20:00 (Dulcolax Supp) 10 mg DAILY PRN RECTAL 04/30/17 20:00 (Lactulose Liq) 30 ml DAILY PRN PO 04/30/17 20:00 (Peridex 0.12% Liq) 15 ml BID@08,20 MT 04/30/17 20:00 05/01/17 09:16 Midazolam HCl 100 ml @ 2 mls/hr TITRATE PRN IV 04/30/17 20:00 04/30/17 21:24 Levetriacetam 100 ml @ 400 mls/hr Q12HR IV 04/30/17 21:00 05/01/17 09:04 Piperacillin Sod/ Tazobactam Sod 100 ml @ 200 mls/hr Q6H IV 05/01/17 10:00 Vancomycin HCl 1000 mg/Sodium Chloride 250 ml @ 250 mls/hr ONCE ONCE IV 05/01/17 09:15 05/01/17 10:14 [facility] Pharmacy Profile Note 0 ml @ 0 mls/hr UNSCH OTHER 05/01/17 09:15 Family History Patient has 3 living children and they are all well. Both parents - unknown cause of or any medical history . Substance Use Tobacco: Patient has smoked cigarettes one pack per day for +28 years Alcohol: Occasionally drinks alcohol Prescription med abuse: None reported Illicits: None reported . Psychosocial History Patient was born and raised in [place]. He is . He has 3 adult children, one daughter and 2 sons. Patient did not serve in the . 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 Spiritual/Cultural Factors Patient is Mormon- has support from family members. . Living Will: Never completed Health Care Surrogate: Never completed Durable Power of Computer Security Manager: Never completed Health Care Surrogate(s): Health care [employer] Son- Manolo Young - [phone] cell(decision-maker)- Call for any medical decisions Son -Luis Antonio Young -[phone] cell/[phone](home) Daughter-Amy MartinesUkyxpr-[phone] cha Telephone call to Luis Antonio Young (son) and Amy Martines (daughter) and they both agreed to defer all medical decision making to their brother Hector French Jr. . Family/friends goals: All three children wants aggressive treatment. . Ethical and Legal Issues None identified at this time . Physical Exam Vital Signs Date Time Temp Pulse Resp B/P (MAP) Pulse Ox O2 Delivery O2 Flow Rate FiO2 05/01/17 08:36 100 05/01/17 08:36 103.0 112 18 141/86 (104) 97 05/01/17 08:06 96 100 05/01/17 07:15 18 05/01/17 06:00 115 137/85 05/01/17 05:00 110 137/85 05/01/17 04:59 108 130/85 05/01/17 04:29 94 100 05/01/17 03:00 102.5 101 18 128/82 (97) 94 05/01/17 03:00 102 05/01/17 03:00 100 05/01/17 00:41 94 100 04/30/17 23:16 101 111/75 04/30/17 23:00 93 18 111/75 (87) 94 04/30/17 22:37 04/30/17 22:35 100 04/30/17 22:35 95 04/30/17 22:35 99.4 91 18 109/70 (83) 94 04/30/17 22:18 99 100 04/30/17 22:10 100 100 04/30/17 21:53 98.8 118 18 112/70 (84) 100 Ventilator 100 04/30/17 20:40 94 100 04/30/17 19:30 140 20 124/78 (93) 94 Ventilator 100 04/30/17 19:25 100 100 04/30/17 19:19 97.2 133 20 124/74 (91) 90 Ventilator 100 04/30/17 19:00 138 18 129/84 (99) 91 Ventilator 04/30/17 18:49 124 82/51 04/30/17 18:42 134 18 138/73 (94) 90 Ventilator 04/30/17 18:18 90 Ventilator 100 04/30/17 18:18 90 Ventilator 100 04/30/17 18:15 148 18 114/75 (88) 92 Ventilator 04/30/17 18:00 116 18 82/56 (65) 91 Ventilator 04/30/17 17:47 80 100 04/30/17 17:47 80 15.00 100 04/30/17 17:40 100 04/30/17 17:39 97.9 122 14 162/86 (111) 85 Ventilator 100 04/30/17 17:28 100 04/30/17 17:26 98.1 103 14 106/78 (87) Ventilator 100 04/30/17 17:11 91 16 50/34 (39) 97 Exam CONSTITUTIONAL/GENERAL: This is an adequately nourished patient, in no apparent distress. TUBES/LINES/DRAINS: ETT, Parikh catheter, OG tube, PICC, SCDs SKIN: No jaundice, rashes, or lesions. Ecchymoses on upper extremities. No wounds seen anteriorly. Skin temperature appropriate. Not diaphoretic. HEAD: Atraumatic. Normocephalic. EYES: Pupils 3mm nonreactive to light. No scleral icterus. No injection or drainage. Fundi not examined. ENT: Hearing-unable to assess patient intubated and sedated. Nose without bleeding or purulent drainage. Moist oral mucosa. NECK: Trachea midline. Supple, nontender. CARDIOVASCULAR:Irregular rhythm without murmurs, gallops, or rubs. No JVD. Peripheral pulses symmetric. RESPIRATORY/CHEST: Symmetric, unlabored respirations. Clear to auscultation. Breath diminished in the bases. No wheezes, rales, or rhonchi. GASTROINTESTINAL: Abdomen soft, non-tender, nondistended.No guarding. Bowel sounds hypoactive GENITOURINARY: Without palpable bladder distension. Parikh catheter in place. MUSCULOSKELETAL: Extremities without clubbing, cyanosis, or edema. No joint tenderness or effusion noted. No calf tenderness. No mottling or clubbing. NEUROLOGICAL: Intubated, sedated on mechanical ventilation. Not following commands. PSYCHIATRIC: Unable to assess at this time. Diagnostic Tests Laboratory Laboratory Tests Test 04/30/17 17:50 04/30/17 18:12 04/30/17 20:24 04/30/17 23:24 White Blood Count 7.7 TH/MM3 (4.0-11.0) Red Blood Count 4.89 MIL/MM3 (4.50-5.90) Hemoglobin 15.4 GM/DL (13.0-17.0) Hematocrit 48.1 % (39.0-51.0) Mean Corpuscular Volume 98.4 FL (80.0-100.0) Mean Corpuscular Hemoglobin 31.4 PG (27.0-34.0) Mean Corpuscular Hemoglobin Concent 31.9 % (32.0-36.0) Red Cell Distribution Width 15.0 % (11.6-17.2) Platelet Count 136 TH/MM3 (150-450) Mean Platelet Volume 8.6 FL (7.0-11.0) Neutrophils (%) (Auto) 56.3 % (16.0-70.0) Lymphocytes (%) (Auto) 27.6 % (9.0-44.0) Monocytes (%) (Auto) 15.8 % (0.0-8.0) Eosinophils (%) (Auto) 0.0 % (0.0-4.0) Basophils (%) (Auto) 0.3 % (0.0-2.0) Neutrophils # (Auto) 4.3 TH/MM3 (1.8-7.7) Lymphocytes # (Auto) 2.1 TH/MM3 (1.0-4.8) Monocytes # (Auto) 1.2 TH/MM3 (0-0.9) Eosinophils # (Auto) 0.0 TH/MM3 (0-0.4) Basophils # (Auto) 0.0 TH/MM3 (0-0.2) CBC Comment AUTO DIFF Differential Total Cells Counted 100 Neutrophils % (Manual) 48 % (16-70) Band Neutrophils % 12 % (0-6) Lymphocytes % 17 % (9-44) Monocytes % 22 % (0-8) Neutrophils # (Manual) 4.7 TH/MM3 (1.8-7.7) Metamyelocytes 1 % (0-1) Nucleated Red Blood Cells 11 /100 WBC (0-0) Differential Comment FINAL DIFF MANUAL Platelet Estimate LOW (NORMAL) Platelet Morphology Comment NORMAL (NORMAL) Ovalocytes 1+ (NORMAL) [place] Cells 1+ (NORMAL) Prothrombin Time 11.4 SEC (9.8-11.6) Prothromb Time International Ratio 1.1 RATIO Activated Partial Thromboplast Time 29.4 SEC (24.3-30.1) Urine Color LIGHT-RED (YELLW/STRAW) Urine Turbidity HAZY (CLEAR) Urine pH 5.5 (5.0-8.5) Urine Specific [place] 1.021 (1.002-1.035) Urine Protein 100 mg/dL (NEG-TRACE) Urine Glucose (UA) NEG mg/dL (NEG) Urine Ketones NEG mg/dL (NEG) Urine Occult Blood MOD (NEG) Urine Nitrite NEG (NEG) Urine Bilirubin NEG (NEG) Urine Urobilinogen 4.0 MG/DL (LESS THAN Urine Leukocyte Esterase NEG (NEG) Urine RBC 1 /hpf (0-3) Urine WBC 2 /hpf (0-5) Urine Squamous Epithelial Cells <1 /hpf (0-5) Urine Amorphous Sediment RARE Urine Bacteria MOD /hpf (NONE) Urine Hyaline Casts 17 /lpf (RARE) Urine Mucus FEW /lpf (OCC) Microscopic Urinalysis Comment CATH-CULTURE IND Blood Gas Puncture Site RT RADIAL Blood Gas Patient Temperature 98.6 Blood Gas HCO3 24 mmol/L (22-26) Blood Gas Base Excess -3.5 mmol/L (-2-2) Blood Gas Oxygen Saturation 94 % (90-100) Arterial Blood pH 7.16 (7.380-7.420) Arterial Blood Partial Pressure CO2 71 mmHg (38-42) Arterial Blood Partial Pressure O2 110 mmHG (61-120) Arterial Blood Oxygen Content 19.6 Vol % (12.0-20.0) Arterial Blood Carboxyhemoglobin 2.3 % (0-4) Arterial Blood Methemoglobin 0.3 % (0-2) Blood Gas Hemoglobin 14.8 G/DL (12.0-16.0) Oxygen Delivery Device VENTILATOR Blood Gas Ventilator Setting Blood Gas Inspired Oxygen 100 % Blood Urea Nitrogen 48 MG/DL (7-18) Creatinine 1.58 MG/DL (0.60-1.30) Random Glucose 175 MG/DL (74-106) Total Protein 6.8 GM/DL (6.4-8.2) Albumin 2.5 GM/DL (3.4-5.0) Calcium Level 8.4 MG/DL (8.5-10.1) Alkaline Phosphatase 103 U/L (45-117) Aspartate Amino Transf (AST/SGOT) 99 U/L (15-37) Alanine Aminotransferase (ALT/SGPT) 33 U/L (12-78) Total Bilirubin 1.2 MG/DL (0.2-1.0) Sodium Level 142 MEQ/L (136-145) Potassium Level 3.8 MEQ/L (3.5-5.1) Chloride Level 98 MEQ/L (98-107) Carbon Dioxide Level 28.8 MEQ/L (21.0-32.0) Anion Gap 15 MEQ/L (5-15) Estimat Glomerular Filtration Rate 52 ML/MIN (>89) Total Creatine Kinase 1930 U/L (39-308) Creatine Kinase MB 24.7 NG/ML (0.5-3.6) Creatine Kinase MB % 1.3 % (0.0-4.0) Troponin I 0.07 NG/ML (0.02-0.05) Lactic Acid Level 7.1 mmol/L (0.4-2.0) 2.7 mmol/L (0.4-2.0) Nasal Screen MRSA (PCR) MRSA NOT DETECTED (NOT Test 05/01/17 00:55 05/01/17 04:45 Blood Gas Puncture Site RT RADIAL Blood Gas Patient Temperature 98.6 Blood Gas HCO3 30 mmol/L (22-26) Blood Gas Base Excess 5.1 mmol/L (-2-2) Blood Gas Oxygen Saturation 96 % (90-100) Arterial Blood pH 7.39 (7.380-7.420) Arterial Blood Partial Pressure CO2 51 mmHg (38-42) Arterial Blood Partial Pressure O2 142 mmHg (61-120) Arterial Blood Oxygen Content 22.6 Vol % (12.0-20.0) Arterial Blood Carboxyhemoglobin 1.4 % (0-4) Arterial Blood Methemoglobin 1.0 % (0-2) Blood Gas Hemoglobin 16.5 G/DL (12.0-16.0) Oxygen Delivery Device VENTILATOR Blood Gas Ventilator Setting PRVC/AC Blood Gas Inspired Oxygen 100 % White Blood Count 7.4 TH/MM3 (4.0-11.0) Red Blood Count 5.34 MIL/MM3 (4.50-5.90) Hemoglobin 16.8 GM/DL (13.0-17.0) Hematocrit 49.7 % (39.0-51.0) Mean Corpuscular Volume 93.2 FL (80.0-100.0) Mean Corpuscular Hemoglobin 31.4 PG (27.0-34.0) Mean Corpuscular Hemoglobin Concent 33.7 % (32.0-36.0) Red Cell Distribution Width 14.8 % (11.6-17.2) Platelet Count 151 TH/MM3 (150-450) Mean Platelet Volume 8.0 FL (7.0-11.0) Neutrophils (%) (Auto) 66.3 % (16.0-70.0) Lymphocytes (%) (Auto) 14.0 % (9.0-44.0) Monocytes (%) (Auto) 19.5 % (0.0-8.0) Eosinophils (%) (Auto) 0.0 % (0.0-4.0) Basophils (%) (Auto) 0.2 % (0.0-2.0) Neutrophils # (Auto) 4.9 TH/MM3 (1.8-7.7) Lymphocytes # (Auto) 1.0 TH/MM3 (1.0-4.8) Monocytes # (Auto) 1.4 TH/MM3 (0-0.9) Eosinophils # (Auto) 0.0 TH/MM3 (0-0.4) Basophils # (Auto) 0.0 TH/MM3 (0-0.2) CBC Comment AUTO DIFF Differential Total Cells Counted 100 Neutrophils % (Manual) 49 % (16-70) Band Neutrophils % 15 % (0-6) Lymphocytes % 16 % (9-44) Monocytes % 19 % (0-8) Neutrophils # (Manual) 4.8 TH/MM3 (1.8-7.7) Metamyelocytes 1 % (0-1) Nucleated Red Blood Cells 3 /100 WBC (0-0) Differential Comment FINAL DIFF MANUAL Platelet Estimate LOW (NORMAL) Platelet Morphology Comment NORMAL (NORMAL) Prothrombin Time 11.5 SEC (9.8-11.6) Prothromb Time International Ratio 1.1 RATIO Activated Partial Thromboplast Time 29.2 SEC (24.3-30.1) Blood Urea Nitrogen 38 MG/DL (7-18) Creatinine 1.01 MG/DL (0.60-1.30) Random Glucose 126 MG/DL (74-106) Total Protein 6.7 GM/DL (6.4-8.2) Albumin 2.6 GM/DL (3.4-5.0) Calcium Level 7.8 MG/DL (8.5-10.1) Phosphorus Level 4.0 MG/DL (2.5-4.9) Magnesium Level 2.2 MG/DL (1.5-2.5) Alkaline Phosphatase 99 U/L (45-117) Aspartate Amino Transf (AST/SGOT) 141 U/L (15-37) Alanine Aminotransferase (ALT/SGPT) 36 U/L (12-78) Total Bilirubin 1.1 MG/DL (0.2-1.0) Sodium Level 141 MEQ/L (136-145) Potassium Level 3.7 MEQ/L (3.5-5.1) Chloride Level 100 MEQ/L (98-107) Carbon Dioxide Level 31.5 MEQ/L (21.0-32.0) Anion Gap 10 MEQ/L (5-15) Estimat Glomerular Filtration Rate 87 ML/MIN (>89) Troponin I 0.35 NG/ML (0.02-0.05) Result Diagram: 05/01/17 0445 05/01/17 0445 Microbiology Microbiology Date/Time Source Procedure Growth Status 04/30/17 18:15 Blood Peripheral Aerobic Blood Culture Pending Received 04/30/17 18:15 Blood Peripheral Anaerobic Blood Culture Pending Received 04/30/17 18:10 Blood Peripheral Aerobic Blood Culture Pending Received 04/30/17 18:10 Blood Peripheral Anaerobic Blood Culture Pending Received 05/01/17 08:26 Sputum Endotracheal Gram Stain Pending Received 05/01/17 08:26 Sputum Endotracheal Sputum Culture Pending Received 04/30/17 17:50 Urine Catheterized Urine Urine Culture Pending Received Imaging Last Impressions Chest X-Ray 05/01/17 0000 Signed Impressions: Service Date/Time: Monday, May 01, 2017 09:20 - CONCLUSION: 1. Interval improvement of pulmonary vascular congestion bilaterally. 2. Right basilar patchiness consistent with possible pneumonia. Clinical correlation is recommended. 3. Multiple tubes and lines are stable. Vasu Laboy MD Head CT 04/30/17 1747 Signed Impressions: Service Date/Time: April 19:29 - CONCLUSION: Diffusely abnormal brain with edema and loss of montero-white differentiation, presumably a global hypoxic event. No bleed or focal abnormality demonstrated. Sonu Wesley MD Procedures 05/01/2017-intubation 05/01/2017-left IJ central line placement . Patient/Family Conference Present at Family Conference: Patient's son Manolo Arrington and family friends Telephone conversation with patient`s other son Luis Antonio Young and daughter Amy Martines. . Family Conference Location: Bedside, Telephone Issues Discussed: * Palliative care role, purpose, approach * Additional medical, psychosocial, and spiritual history * Patients general health, functional status, and cognitive changes in the months leading up to the current hospitalization * Patient/family understanding of the current medical problems * Patient/family understanding of prognosis * Patients goals of care as best understood from advance directives and/or conversations and/or values * Current medical treatment options and benefits/burdens of those options * Likely scenarios comparing ongoing aggressive care with a transition to comfort measures only * Questions answered to the best of my ability * Palliative care contact information provided Assessment and Plan Disease Oriented Problem List: (1) Cardiac arrest (2) Respiratory failure (3) Encephalopathy (4) Acute kidney injury (5) Lactic acidosis Symptom Scale: (1) Shortness of breath Pertinent Non-Medical Issues Psychosocial:Patient was born and raised in [place]. He is . He has 3 adult children, one daughter and 2 sons. Patient did not serve in the . 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 Spiritual: Mormon Legal: Patient does not have any advanced directives Ethical issues impacting care: None identified at this time . Important Contacts Son- Manolo Young - [phone] cell(decision-maker)Call for any medical decisions Son -Luis Antonio Young -[phone] cell/[phone](home) Daughter-Amy MartinesRoykyo-[phone] cell Telephone call to Luis Antonio Young (son) and Amy Martines (daughter) and they both agreed to defer all medical decision making to their brother Hector French Jr. . Prognosis Mr. Valencia is a 77 years old with a past medical history of prostate cancer, and hypertension. Patient was brought in by EMS after a cardiac arrest. Per EMS report, patient had return of spontaneous circulation 15-20minutes after they had administered 3 amps epinephrine and 1 amp bicarb. Due to prolonged return of spontaneous circulation, and diffusely abnormal brain with edema and loss of montero-white differentiation presumably a global hypoxic event on CT head on arrival, patient is at risk for further complications, deterioration and decline. . Code Status: Full Code Plan PLAN: Legal decision maker: Patient is currently intubated, sedated on mechanical ventilation and unable to participate in medical decision making. It is not known if patient will be able to regain capacity at this time. Patient son Hector French Jr will serve as his health care proxy. Goals: Aggressive Meeting with patient`s eldest son Hector French Jr and some family friends. Updated on medical status. Obtained psychosocial history and medical history. Reviewed events that happened, prior to hospitalization. Per Manolo Oseguera, patient does not have advanced directives. Addressed code status, discussed risks, benefits and limitations of CPR given recent cardiac arrest. Patient's son stated that he wants patient to remain a full code and wants him to be resuscitated. Explained possible complications that patient will most likely face given the severity of the results from head CT. Family friend present during meeting encouraged patient`s son to press for aggressive treatment despite how bad diagnostic tests are and clinical presentation. Patient`s son stated that at this time he is not ready to "let go", though he stated that he would appreciate updates that way he can make informed decisions. Telephone call to patient`s other two children Luis Antonio Young and Amy Martines. Updated them on patient`s condition and readdressed code status with them. They both want patient to be a full code and they both deferred further medical decision making to their eldest brother Manolo Young. CODE STATUS: Full Code SYMPTOMS: * Shortness of breath: Patient suffered a cardiac arrest. Chest x-ray 05/01 revealed improvement of pulmonary vascular congestion bilaterally and right basilar patient is consistent with possible pneumonia. Currently intubated and on mechanical ventilation. FiO2 100% with O2 saturation in the mid and low 90s. Palliative care will continue to follow the patient during hospital course as condition evolves, to assist patient/decision-maker with understanding of their medical conditions, weighing benefits/burdens of treatment options, for clarification of goals of treatment. Additionally will assist with any symptoms of palliative concern. Thank you for the opportunity to participate in the care of Mr. Young. Attestation To help prompt me to consider important information that might be impacting today's encounter and assessment, information from prior notes written by myself or my colleagues may have been "brought forward" into today's note. My signature on this note, however, is an attestation that I personally performed the exam, history, and/or decision-making noted today, and, unless otherwise indicated, the interactions with patient, family, and staff as well as the review of records all occurred today. I also attest that the listed assessment and stated plan reflect my best clinical judgment today based on the combination of historical information, prior notes, and today's exam/ interactions. When time spent is documented, it refers only to time spent today by the signer, or if indicated, combined time spent today by collaborating physician/nurse practitioner. Norberto Villarreal May 01, 2017 10:12
[2017-05-01] MEDS: PIPERACIL-TAZO 4.5 GM PREMIX 100 ML IV SCH ×3 (10:40→21:56)
[2017-05-01] MEDS: ARTIFICIAL TEARS OPTH SOLN 15 ML BTL EACH EYE SCH ×3 (10:41→18:27)
--- NOTE | 2017-05-01 10:46 | HHI.CCPN ---
Subjective Remarks/Hospital Course 77-year-old male admitted status post cardiac arrest. Per EMS report they gave him 3 epinephrine and a dose of bicarb with return of spontaneous circulation after approximately 15-20 minutes. Family states that they were with him, he seemed to perhaps be a little short of breath, but was not complaining of anything. One son left and 30 minutes later another son arrived and found him slumped in the chair. Family states he has a history of high blood pressure and prostate cancer, no heart problems that they know of. In the emergency department patient is intubated, unresponsive, with myoclonic jerks in all 4 extremities. SUBJ 05/01: Appears to have sustained severe anoxic brain injury. According given due to muscle artifact during EEG. Diffuse encephalopathy, no seizure. Spiking fever up to 104.7. Howell cultures sent start vancomycin and Zosyn. Palliative care consult pending Objective Vital Signs Date Time Temp Pulse Resp B/P (MAP) Pulse Ox O2 Delivery O2 Flow Rate FiO2 05/01/17 08:36 100 05/01/17 08:36 103.0 112 18 141/86 (104) 97 04/30/17 21:53 Ventilator 04/30/17 17:47 15.00 Intake and Output 05/01/17 05/01/17 05/02/17 08:00 16:00 00:00 Intake Total 1288.3 ml Output Total 1100 ml Balance 188.3 ml Result Diagram: 05/01/17 0445 05/01/17 0445 Other Results Laboratory Tests Test 04/30/17 17:50 05/01/17 00:55 Blood Gas Puncture Site RT RADIAL RT RADIAL Blood Gas Patient Temperature 98.6 98.6 Blood Gas HCO3 24 mmol/L (22-26) 30 mmol/L (22-26) Blood Gas Base Excess -3.5 mmol/L (-2-2) 5.1 mmol/L (-2-2) Blood Gas Oxygen Saturation 94 % (90-100) 96 % (90-100) Arterial Blood pH 7.16 (7.380-7.420) 7.39 (7.380-7.420) Arterial Blood Partial Pressure CO2 71 mmHg (38-42) 51 mmHg (38-42) Arterial Blood Partial Pressure O2 110 mmHG (61-120) 142 mmHg (61-120) Arterial Blood Oxygen Content 19.6 Vol % (12.0-20.0) 22.6 Vol % (12.0-20.0) Arterial Blood Carboxyhemoglobin 2.3 % (0-4) 1.4 % (0-4) Arterial Blood Methemoglobin 0.3 % (0-2) 1.0 % (0-2) Blood Gas Hemoglobin 14.8 G/DL (12.0-16.0) 16.5 G/DL (12.0-16.0) Oxygen Delivery Device VENTILATOR VENTILATOR Blood Gas Ventilator Setting PRVC/AC Blood Gas Inspired Oxygen 100 % 100 % Imaging Last [address] 04/30/171746 Signed Impressions: Service Date/Time: April 19:29 - CONCLUSION: Diffusely abnormal brain with edema and loss of montero-white differentiation, presumably a global hypoxic event. No bleed or focal abnormality demonstrated. Sonu Wesley MD Chest X-Ray 04/30/171746 Signed Impressions: Service Date/Time: April 18:00 - CONCLUSION: Right greater the left basilar consolidation. There is considerable right-sided volume loss. Endotracheal tube and left IJ line appropriate positions as above. Sonu Wesley MD Objective Remarks GENERAL: Sedated and unresponsive comatose elderly gentleman SKIN: Warm and dry. HEAD: Normocephalic. EYES: No scleral icterus. No injection or drainage. NECK: Supple, trachea midline. No JVD or lymphadenopathy. CARDIOVASCULAR: Regular rate and rhythm without murmurs, gallops, or rubs. RESPIRATORY: Breath sounds equal bilaterally. Diminished at the bases with coarse crackles GASTROINTESTINAL: Abdomen soft, non-tender, nondistended. MUSCULOSKELETAL: No cyanosis, or edema. Intermittent myoclonic jerks BACK: Nontender without obvious deformity. NEURO EXAM: GCS: 3. The patient is unresponsive to verbal or painful stimuli. 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 Acute Respiratory failure - Status post cardiac arrest - Continue mechanical ventilation - Intubated for an airway protection - No weaning until neurologically improved - Vent bundle DuoNeb's when necessary - Hypoxia secondary to probable aspiration pneumonia-on broad-spectrum antibody Cardiac arrest - Status post prolonged CPR - Likely prolonged downtime prior the CPR - Diffuse anoxic changes on the CT brain - No indication for hypothermia protocol due to already severely damaged PRODUCTION SUPERVISOR - Palliative care consultation Lactic acidosis - Post cardiac arrest - IV fluid - Monitor trend Acute kidney injury - Unknown baseline levels - IV fluids resuscitation - Monitor I's and O's - Monitor creatinine levels - Electrolytes replacement per ICU protocol Fever/Sepsis - Fever could be central but patient has bilateral infiltrate on chest x-ray - Continue broad-spectrum antibiotics with vancomycin and Zosyn - Follow up on howell culture DVT GI prophylaxis - Teds SCDs - Subcutaneous heparin - Pepcid Critical Care: The total critical care time was 35 minutes. Time to perform other separately billable procedures was not included in the critical care time. Palliative care consulted. Prognosis appears very poor with myoclonus. If no improvement in the next 24 hours recommend compassionate withdrawal of care Ulices Ascencio MD May 01, 2017 10:46
--- NOTE | 2017-05-01 11:11 | RADRPT ---
EXAM DATE/TIME: 05/01/2017 09:20 [facility] COMPARISON: CHEST SINGLE AP, April 30, 2017, 18:00. INDICATIONS : Respiratory failure. MEDICAL HISTORY : Hypertension. Rheumatoid arthritis. Smoker. SURGICAL HISTORY : None. ENCOUNTER: Subsequent ACUITY: 2 days PAIN SCORE: Non-responsive. LOCATION: Bilateral chest FINDINGS: An endotracheal tube has its tip 6 cm above the thomas. A nasogastric has its tip below diaphragm. Le ft internal jugular central line has tip in superior vena cava. There is no pneumothorax. Right basil ar patchiness is noted. The left lung is relatively clear. The heart is stable. There has been interv al improvement in pulmonary vascular congestion bilaterally. CONCLUSION: 1. Interval improvement of pulmonary vascular congestion bilaterally. 2. Right basilar patchiness consistent with possible pneumonia. Clinical correlation is recommended. 3. Multiple tubes and lines are stable. Vasu Laboy MD on May 01, 2017 at 11:06 Board Certified Radiologist. This report was verified electronically.
--- NOTE | 2017-05-01 14:21 | EKG ---
Date Performed: 05/01/2017 Time Performed: 04:12:18 PTAGE: 77 years EKG: Sinus tachycardia with sinus arrhythmia with aberrantly conducted supraventricular complexe s Left axis deviation Inferior infarct - age undetermined Possible anterior infarct - age undetermine d Abnormal ECG Compared to PREVIOUS TRACING , the atrial fibrillation has resolved. The marked anterior ST segment c hanges have resolved. The present tracing is actually consistent with a multifocal atrial tachycardia . Significant serial changes have occurred since the prior tracing and clinical correlation will be i mportant. PREVIOUS TRACIN04/30/2017 17.12 DOCTOR: Nimo Ch Interpretating Date/Time 05/01/2017 14:21:07
--- NOTE | 2017-05-01 14:35 | EKG ---
Date Performed: 04/30/2017 Time Performed: 17:12:28 PTAGE: 77 years EKG: ATRIAL FIBRILLATION POSSIBLE ANTERIOR MYOCARDIAL INFARCTION INFERIOR MYOCARDIAL INFARCTION ST DEPRESSION, CONSIDER SUBENDOCARDIAL INJURY ABNORMAL ECG NO PREVIOUS TRACING DOCTOR: Nimo Ch Interpretating Date/Time 05/01/2017 14:30:02
[2017-05-01] MEDS: VANCOMYCIN 1,500 MG/NS 500 ML IV SCH ×2 (15:35)
[2017-05-01] MEDS: DEXT 5%-NACL 0.9% 1000 ML INJ 1,000 ML IV SCH ×2 (18:27→23:29)
[2017-05-01] MEDS: MIDAZOLAM 100 MG/100 ML INJ 100 ML IV PRN (18:48)
--- NOTE | 2017-05-01 21:48 | MG ---
cc: KATHRYN CHRISTIE M.D. Lab No: [id number] Date: Age: 77 Sex: M Race: REFERRING: [place]. ROOM: 446. Intubated with photic only, sedated. Versed 5 milligrams. Unresponsive. Febrile with a temperature of 103. Admitted with cardiac arrest. The family states that the patient was short of breath and not complaining of anything, found thirty minutes later slumped in a chair. History of hypertension, prostate cancer. Medicines are Versed, Keppra and others. DESCRIPTION OF THE RECORD: There is quite a bit of muscle artifact. Overall slowing predominately of delta frequency. However, there is a gross amount of artifact throughout from noise. No epileptic activity. On photic stimulation, there is no significant driving response. IMPRESSION: Abnormal EEG due to moderately severe slowing consistent with encephalopathic process of various etiolotgies, such as anoxia possible. Clinical correlation. MD RASHEEDA Lomeli/LISA /7:57 PM /9:30 PM
[2017-05-02] VITALS (13 sets, daily range): BP systolic 96–130; BP diastolic 66–81; PULSE 94–113; RESP 18; TEMP 98.8–101.3; O2SAT 93–99
[2017-05-02] MEDS: NOREPINEPHRINE 4 MG/D5W 250 ML IV PRN ×4 (01:57→23:41)
[2017-05-02] MEDS: CHLORHEXIDINE GLUCONATE 2 % 1 PACK (2 CLOTHS) TOP SCH (04:00)
[2017-05-02] MEDS: HEPARIN SODIUM - SQ 10,000 UNITS/ML VIAL SQ SCH ×3 (05:11→22:06)
[2017-05-02] MEDS: PIPERACIL-TAZO 4.5 GM PREMIX 100 ML IV SCH ×4 (05:11→22:07)
[2017-05-02] MEDS: ACETAMINOPHEN 325 MG TAB PO PRN (05:12)
[2017-05-02 05:13] LABS: CREATININE 1.21 MG/DL (0.60-1.30)
[2017-05-02] MEDS: FAMOTIDINE 20 MG/2 ML VIAL IV PUSH SCH ×2 (07:58→19:52)
[2017-05-02] MEDS: levETIRAcetam INJ 100 ML IV SCH ×2 (07:58→19:51)
[2017-05-02] MEDS: CHLORHEXIDINE 0.12% (ORAL KIT) 15 ML CUP MT SCH ×2 (07:58→19:51)
[2017-05-02] MEDS: VANCOMYCIN 1,500 MG/NS 500 ML IV SCH ×2 (07:59)
--- NOTE | 2017-05-02 09:13 | HHI.CCPN ---
Subjective Remarks/Hospital Course 77-year-old male admitted status post cardiac arrest. Per EMS report they gave him 3 epinephrine and a dose of bicarb with return of spontaneous circulation after approximately 15-20 minutes. Family states that they were with him, he seemed to perhaps be a little short of breath, but was not complaining of anything. One son left and 30 minutes later another son arrived and found him slumped in the chair. Family states he has a history of high blood pressure and prostate cancer, no heart problems that they know of. In the emergency department patient is intubated, unresponsive, with myoclonic jerks in all 4 extremities. SUBJ 05/01: Appears to have sustained severe anoxic brain injury. According given due to muscle artifact during EEG. Diffuse encephalopathy, no seizure. Spiking fever up to 104.7. Howell cultures sent start vancomycin and Zosyn. Palliative care consult pending 05/02: Clinically unresponsive. On Versed 3 mg/h for myoclonus. EEG showed moderate to severe encephalopathy no seizures. Family wants to continue full aggressive care. I will consult neurology to assist with prognostication as the patient seems to have sustained severe anoxic injury. FiO2 remains high at 100%. Continue to spike fever currently on [place] Zosyn. Objective Vital Signs Date Time Temp Pulse Resp B/P (MAP) Pulse Ox O2 Delivery O2 Flow Rate FiO2 05/02/17 08:00 107 121/67 05/02/17 07:15 95 100 05/02/17 03:00 101.3 18 04/30/17 21:53 Ventilator 04/30/17 17:47 15.00 Intake and Output 05/02/17 05/02/17 05/03/17 08:00 16:00 00:00 Intake Total 1203 ml Output Total 1750 ml Balance -547 ml Result Diagram: 05/01/17 0445 05/02/17 0400 Other Results Microbiology Date/Time Source Procedure Growth Status 05/01/17 15:00 Nasal Aspirate Influenza Types A,B Antigen (IRLANDA) - Final NEGATIVE FOR FLU A AND B ANTIGEN.... Complete 04/30/17 17:50 Urine Catheterized Urine Urine Culture - Final NO GROWTH IN 48 HOURS. Complete Imaging Last [address] 04/30/17 0949 Signed Impressions: Service Date/Time: April 19:29 - CONCLUSION: Diffusely abnormal brain with edema and loss of montero-white differentiation, presumably a global hypoxic event. No bleed or focal abnormality demonstrated. Sonu Wesley MD Chest X-Ray 04/30/171 Signed Impressions: Service Date/Time: April 18:00 - CONCLUSION: Right greater the left basilar consolidation. There is considerable right-sided volume loss. Endotracheal tube and left IJ line appropriate positions as above. Sonu Wesley MD Objective Remarks GENERAL: Sedated and unresponsive comatose elderly gentleman SKIN: Warm and dry. HEAD: Normocephalic. EYES: No scleral icterus. No injection or drainage. Pupils 4 mm unresponsive NECK: Supple, trachea midline. No JVD or lymphadenopathy. CARDIOVASCULAR: Regular rate and rhythm without murmurs, gallops, or rubs. RESPIRATORY: Breath sounds equal bilaterally. Diminished at the bases with coarse crackles GASTROINTESTINAL: Abdomen soft, non-tender, nondistended. MUSCULOSKELETAL: No cyanosis, or edema. Intermittent myoclonic jerks BACK: Nontender without obvious deformity. NEURO: GCS: 3T. The patient is unresponsive to verbal or painful stimuli. 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 - Continue Versed infusion and Keppra for myoclonus - Neurology consulted to assist with prognostication Resp: Acute hypoxemic respiratory failure Aspiration pneumonitis - Continue mechanical ventilation - Intubated for an airway protection, now severely hypoxemic - Continue PRBC, increase PEEP to 12, attempt to wean FiO2 keeping oxygen saturation above 90% - No weaning until neurologically improved, and hypoxia improved - Vent bundle DuoNeb's when necessary - Check venous Doppler bilateral upper and lower extremities to rule out DVT CVS: Cardiac arrest - Status post prolonged CPR - Likely prolonged downtime prior the CPR - Diffuse anoxic changes on the CT brain - No indication for hypothermia protocol due to already severely damaged 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 Mild troponin elevation most likely from CPR - Lactic acidosis improving with aggressive resuscitation GI -Tube feeds with Jevity, Protonix for GI prophylaxis -Bowel regimen : Acute kidney injury - Unknown baseline levels - IV fluids resuscitation - Monitor I's and O's - Monitor creatinine levels - Electrolytes replacement per ICU protocol ID: Fever/Sepsis - Fever could be central but patient has bilateral infiltrate on chest x-ray - Continue broad-spectrum antibiotics with vancomycin and Zosyn - Follow up on howell culture - Bilateral upper and lower extremity venous Doppler to rule out DVT HEME: - Monitor CBC CMP coags Endo: - Electrolyte replacement per protocol DVT GI prophylaxis - Teds SCDs - Subcutaneous heparin - Pepcid Critical Care: The total critical care time was 35 minutes. Time to perform other separately billable procedures was not included in the critical care time. Palliative care consulted. Prognosis appears very poor with myoclonus. Family wants full support and aggressive treatment Ulices Ascencio MD May 02, 2017 09:13
[2017-05-02] MEDS: ARTIFICIAL TEARS OPTH SOLN 15 ML BTL EACH EYE SCH ×3 (09:18→18:43)
--- NOTE | 2017-05-02 10:20 | RADRPT ---
EXAM DATE/TIME: 05/02/2017 09:06 [facility] COMPARISON: CHEST SINGLE AP, May 01, 2017, 9:20. INDICATIONS : Respiratory failure. MEDICAL HISTORY : Hypertension. Rheumatoid arthritis. Smoker. SURGICAL HISTORY : None. ENCOUNTER: [facility]ela ACUITY: 3 days PAIN SCORE: Non-responsive. LOCATION: Bilateral chest FINDINGS: AP upright portable view of the chest demonstrates an endotracheal tube with the tip identified just beyond the level of the clavicles. Gastric tubing extending beyond the imaged portion of the field. L eft-sided central line with the tip overlying the distal SVC, stable. Heart size is mildly enlarged. There is progressive hazy opacity overlying the right hemithorax. This may represent atelectasis, airspace consolidation versus layering pleural fluid. The left hemithorax appears clear. CONCLUSION: Worsening lung exam with increasing density overlying the right hemithorax. A this may reflect areas of subsegmental atelectasis/consolidation or layering right-sided pleural fluid. Favor atelectasis an d airspace consolidation.. Luz Dill MD on May 02, 2017 at 10:16 Board Certified Radiologist. This report was verified electronically.
--- NOTE | 2017-05-02 15:06 | MB ---
cc: KATHRYN CHRISTIE M.D. DATE OF CONSULTATION: 05/02/17 DATE OF : 1940, 77 YEARS OLD REASON FOR CONSULTATION Anoxic encephalopathy. HISTORY OF PRESENT ILLNESS Mr. Young is a 77-year-old man admitted for status post cardiac arrest. Apparently, per EMS they gave him three epinephrines and a dose of bicarb with return to spontaneous circulation after 15-20 minutes. Apparently, there was some shortness of breath prior to him coming into the hospital. His son went out for 30 minutes to pick something up and when he came back he found his father slumped over in the chair. The patient has a significant history of hypertension and prostate cancer. NEUROLOGIC EXAMINATION VITAL SIGNS: Temperature is 99.7, pulse 94, respiratory rate 18, blood pressure 96/67. The patient has been off sedation for over three hours now. He has been febrile and receiving Tylenol. His T-max is 101.3. On exam, elderly male lying in bed, in no distress, on a ventilator. Ventilator set at 18. He went as far as going one over the respiratory rate set to 19. Pupils are pinpoint, nonreactive. OCRs are unremarkable. Corneal reflex is not there bilaterally, does not respond. There is no cough with suctioning. He does not respond to any verbal commands. Does not withdraw to pain. LABORATORY DATA Labs are reviewed. CBC today white count 7.4, hemoglobin 16.8, hematocrit 49.7, platelets are 151,000. Chemistries: His GFR 70, creatinine 1.21. Troponin reviewed, 0.07 on the 8th then 0.35 and 0.11. Albumin 2.6. Lactic acid was 7.1 yesterday and then repeat was 2.7. Urine cultures indicated bacteria seen, [address] of the head confirms diffusely abnormal brain with edema, loss of montero-white differentiation presumably due to global hypoxic event. His EEG did not show seizures but showed severe slowing. IMPRESSION A 77-year-old man with what looks like a severe anoxic encephalopathy. I recommend just for completion an MRI of the brain when he is stable. If by tomorrow he does not over breathe the vent, would recommend a blood flow study. At this point in time he did over breathe for me by one, but in the event in the next 24 hours there is no over-breathing and no other cranial nerve findings then a blood flow would be indicated. Prognosis however for any meaningful neurologic recovery is next to none. Very poor prognosis. Discussed with the patient's [id number]. Continue the current care. MD RASHEEDA Lomeli/BONG /1:16 PM /2:40 PM
[2017-05-02] MEDS: DEXT 5%-NACL 0.9% 1000 ML INJ 1,000 ML IV SCH (15:08)
[2017-05-02] MEDS: SODIUM CHLORIDE 0.9% FLUSH 10 ML FLUSH IV FLUSH SCH ×2 (17:42→19:52)
[2017-05-02] MEDS: DOCUSATE SODIUM 50 MG/SENNA 8.6 MG TAB PO SCH ×2 (17:42→19:51)
--- NOTE | 2017-05-02 18:36 | RADRPT ---
EXAM DATE/TIME: 05/02/2017 16:29 [facility] COMPARISON: No previous studies available for comparison. INDICATIONS : Bilateral leg swelling. MEDICAL HISTORY : Hypertension. Carcinoma, prostate. Dyspnea. Joint pain. SURGICAL HISTORY : Unable to obtain. ENCOUNTER: Initial ACUITY: 1 day PAIN SCORE: Non-responsive LOCATION: Bilateral leg. TECHNIQUE: Venous ultrasound of the left and right leg was performed from the inguinal ligament to the proximal calf. Real-time, color Doppler and spectral tracing, compression and augmentation techniques were us ed. FINDINGS: RIGHT LEG: There is normal compressibility of the deep venous system from the inguinal region to the proximal ca lf. No echogenic clot is seen in the lumen of the common femoral, femoral, popliteal, and posterior tibial veins. There is a normal response of the venous system to proximal and distal augmentation an d respiration. Iliac vein open and patent LEFT LEG: There is normal compressibility of the deep venous system from the inguinal region to the proximal ca lf. No echogenic clot is seen in the lumen of the common femoral, femoral, popliteal, and posterior tibial veins. There is a normal response of the venous system to proximal and distal augmentation an d respiration. Iliac vein with normal flow CONCLUSION: Normal examination. No evidence of DVT Juan Edwards MD on May 02, 2017 at 18:33 Board Certified Radiologist. This report was verified electronically.
--- NOTE | 2017-05-02 18:39 | RADRPT ---
EXAM DATE/TIME: 05/02/2017 16:52 [facility] COMPARISON: No previous studies available for comparison. INDICATIONS : Bilateral arm swelling. MEDICAL HISTORY : Hypertension. Carcinoma, prostate. Dyspnea. Joint pain. SURGICAL HISTORY : Unable to obtain. ENCOUNTER: Initial ACUITY: 1 day PAIN SCORE: Non-responsive LOCATION: Bilateral arm. FINDINGS: RIGHT UPPER EXTREMITY: There is spontaneous flow documented in the brachial, basilic, cephalic, a xillary, and subclavian veins. The vessels are compressible and augmentation response is documented. No filling defects are seen. The flow is phasic with respiration. Direction of flow in the jugula r vein is caudal. LEFT UPPER EXTREMITY: The venous structures are open and patent other than a mixture of occlusive and nonocclusive thrombus in the left cephalic vein proximal to the IV site CONCLUSION: Thrombus in the left cephalic vein occlusive and nonocclusive. Negative right upper extremity Juan Edwards MD on May 02, 2017 at 18:34 Board Certified Radiologist. This report was verified electronically.
[2017-05-03] VITALS (18 sets, daily range): BP systolic 105–116; BP diastolic 65–75; PULSE 69–101; RESP 18; TEMP 98.6–100.3; O2SAT 92–100
[2017-05-03] MEDS ORDERED: DEXTROSE 50% IN WATER 50 ML VIAL(D50) IV PUSH PRN (00:15)
[2017-05-03] MEDS ORDERED: GLUCAGON 1 MG/ML VIAL OTHER PRN (00:15)
[2017-05-03] MEDS ORDERED: PHARMACY ORDERED LAB ONE (02:45)
[2017-05-03] MEDS: DEXT 5%-NACL 0.9% 1000 ML INJ 1,000 ML IV SCH (03:15)
[2017-05-03] MEDS: CHLORHEXIDINE GLUCONATE 2 % 1 PACK (2 CLOTHS) TOP SCH (03:19)
[2017-05-03] MEDS: PIPERACIL-TAZO 4.5 GM PREMIX 100 ML IV SCH ×4 (03:39→21:07)
[2017-05-03] MEDS: VANCOMYCIN 1,500 MG/NS 500 ML IV SCH ×4 (03:39→14:49)
[2017-05-03 03:49] LABS: AUTOMATED NEUTROPHIL # 7.8 TH/MM3 (1.8-7.7); BASOPHIL % 0.2 % (0.0-2.0); EOSINOPHIL % 0.1 % (0.0-4.0); HEMATOCRIT 51.7 % (39.0-51.0); LYMPHOCYTE # 0.6 TH/MM3 (1.0-4.8); MEAN CELL VOLUME 95.5 FL (80.0-100.0); MEAN CORPUSCULAR HEMOGLOBIN 31.3 PG (27.0-34.0); MEAN CORPUSCULAR HGB CONC 32.8 % (32.0-36.0); MEAN PLATELET VOLUME 9.7 FL (7.0-11.0); MONO % 13.6 % (0.0-8.0); MONOCYTE # 1.3 TH/MM3 (0-0.9); NEUT % 80.1 % (16.0-70.0); PLATELET COUNT 100 TH/MM3 (150-450); RED BLOOD COUNT 5.42 MIL/MM3 (4.50-5.90); RED CELL DISTRIBUTION WIDTH 15.7 % (11.6-17.2); WHITE BLOOD COUNT 9.7 TH/MM3 (4.0-11.0)
[2017-05-03 05:24] LABS: ALBUMIN 1.8 GM/DL (3.4-5.0); ALKALINE PHOSPHATASE 65 U/L (45-117); ALT (GPT) 41 U/L (12-78); AST (GOT) 221 U/L (15-37); BICARBONATE 31.9 MEQ/L (21.0-32.0); BLOOD UREA NITROGEN 21 MG/DL (7-18); CALCIUM 7.9 MG/DL (8.5-10.1); CHLORIDE 127 MEQ/L (98-107); CREATININE 1.09 MG/DL (0.60-1.30); GLOMERULAR FILTRATION RATE 80 ML/MIN (>89); GLUCOSE,RANDOM 166 MG/DL (74-106); TOTAL BILIRUBIN ADULT 3.9 MG/DL (0.2-1.0); TOTAL PROTEIN 6.5 GM/DL (6.4-8.2)
[2017-05-03 05:29] LABS: SODIUM (NA) 163 MEQ/L (136-145)
--- NOTE | 2017-05-03 05:35 | RADRPT ---
EXAM DATE/TIME: 05/03/2017 04:20 [facility] COMPARISON: CHEST SINGLE AP, May 02, 2017, 9:06. INDICATIONS : Respiratory failure MEDICAL HISTORY : Hypertension. Rheumatoid arthritis. Smoker. SURGICAL HISTORY : None. ENCOUNTER: Subsequent ACUITY: 4 - 6 days PAIN SCORE: Non-responsive. LOCATION: Bilateral chest FINDINGS: A single view of the chest demonstrates endotracheal tube in good position. NG enters stomach. A left central line in superior vena cava. Bilateral mostly basilar airspace disease. No significant effusi on. No pneumothorax. CONCLUSION: 1. Support apparatus in good position. Bilateral mostly basilar airspace disease relatively stable. Rasta Osorio MD on May 03, 2017 at 5:32 Board Certified Radiologist. This report was verified electronically.
[2017-05-03] MEDS: HEPARIN SODIUM - SQ 10,000 UNITS/ML VIAL SQ SCH ×3 (06:30→21:06)
[2017-05-03] MEDS: NOREPINEPHRINE 4 MG/D5W 250 ML IV PRN ×3 (07:53→23:25)
[2017-05-03] MEDS: INSULIN ASPART SUPPLEMENTAL SCALE SQ SCH ×4 (08:00→20:51)
[2017-05-03] MEDS: CHLORHEXIDINE 0.12% (ORAL KIT) 15 ML CUP MT SCH ×2 (08:14→20:11)
[2017-05-03] MEDS: ARTIFICIAL TEARS OPTH SOLN 15 ML BTL EACH EYE SCH ×3 (09:00→17:37)
[2017-05-03] MEDS: DOCUSATE SODIUM 50 MG/SENNA 8.6 MG TAB PO SCH ×2 (09:14→20:12)
[2017-05-03] MEDS: SODIUM CHLORIDE 0.9% FLUSH 10 ML FLUSH IV FLUSH SCH ×2 (09:14→20:12)
[2017-05-03] MEDS: FAMOTIDINE 20 MG/2 ML VIAL IV PUSH SCH ×2 (09:14→20:51)
[2017-05-03] MEDS: levETIRAcetam INJ 100 ML IV SCH ×2 (09:16→20:11)
[2017-05-03] MEDS ORDERED: SODIUM CHLOR 0.45% 1000 ML INJ 1,000 ML IV ONE (13:15)
--- NOTE | 2017-05-03 13:20 | HHI.CCPN ---
Subjective Remarks/Hospital Course 77-year-old male admitted status post cardiac arrest. Per EMS report they gave him 3 epinephrine and a dose of bicarb with return of spontaneous circulation after approximately 15-20 minutes. Family states that they were with him, he seemed to perhaps be a little short of breath, but was not complaining of anything. One son left and 30 minutes later another son arrived and found him slumped in the chair. Family states he has a history of high blood pressure and prostate cancer, no heart problems that they know of. In the emergency department patient is intubated, unresponsive, with myoclonic jerks in all 4 extremities. SUBJ 05/01: Appears to have sustained severe anoxic brain injury. According given due to muscle artifact during EEG. Diffuse encephalopathy, no seizure. Spiking fever up to 104.7. [place] cultures sent start vancomycin and Zosyn. Palliative care consult pending 05/02: Clinically unresponsive. On Versed 3 mg/h for myoclonus. EEG showed moderate to severe encephalopathy no seizures. Family wants to continue full aggressive care. I will consult neurology to assist with prognostication as the patient seems to have sustained severe anoxic injury. FiO2 remains high at 100%. Continue to spike fever currently on [place] Zosyn. 05/03: Remains intubated critical, off all sedation and no response to painful stimuli. Has spontaneous breathing above the ventilator set rate. Urine output more than 6 L in the last 24 hours, sodium has risen to 163 concerning for at least partial DI. Serum osmolality, urine osmolality and urine specific gravity ordered. Will bolus half-normal saline 1 L and change fluid to D5 W at 175 mL/h Objective Vital Signs Date Time Temp Pulse Resp B/P (MAP) Pulse Ox O2 Delivery O2 Flow Rate FiO2 05/03/17 12:19 40 05/03/17 12:09 94 05/03/17 11:11 99.4 91 18 109/75 (86) 04/30/17 21:53 Ventilator 04/30/17 17:47 15.00 Intake and Output 05/03/17 05/03/17 05/04/17 08:00 16:00 00:00 Intake Total 3616 ml 200 ml Output Total 1780.0 ml 30.0 ml Balance 1836.0 ml 170.0 ml Result Diagram: 05/03/17 0245 05/03/17 0245 Other Results Microbiology Date/Time Source Procedure Growth Status 05/01/17 15:00 Nasal Aspirate Influenza Types A,B Antigen (IRLANDA) - Final NEGATIVE FOR FLU A AND B ANTIGEN.... Complete 05/01/17 08:26 Sputum Endotracheal Gram Stain - Final Complete 05/01/17 08:26 Sputum Endotracheal Sputum Culture - Final MODERATE GROWTH NORMAL RESPIRATORY PIPO Complete 04/30/17 17:50 Urine Catheterized Urine Urine Culture - Final NO GROWTH IN 48 HOURS. Complete Imaging Last [address] 04/30/171746 Signed Impressions: Service Date/Time: April 19:29 - CONCLUSION: Diffusely abnormal brain with edema and loss of montero-white differentiation, presumably a global hypoxic event. No bleed or focal abnormality demonstrated. Sonu Wesley MD Chest X-Ray 04/30/171746 Signed Impressions: Service Date/Time: April 18:00 - CONCLUSION: Right greater the left basilar consolidation. There is considerable right-sided volume loss. Endotracheal tube and left IJ line appropriate positions as above. Sonu Wesley MD Objective Remarks GENERAL: Sedated and unresponsive comatose elderly -[place] male SKIN: Warm and dry. HEAD: Normocephalic. EYES: No scleral icterus. No injection or drainage. Pupils 4 mm unresponsive NECK: Supple, trachea midline. No JVD or lymphadenopathy. CARDIOVASCULAR: Regular rate and rhythm without murmurs, gallops, or rubs. On Levophed 9 mcg/min to maintain map above 65 RESPIRATORY: Breath sounds equal bilaterally. Diminished at the bases with coarse crackles GASTROINTESTINAL: Abdomen soft, non-tender, nondistended. MUSCULOSKELETAL: No cyanosis, or edema. BACK: Nontender without obvious deformity. NEURO: GCS: 3T. The patient is unresponsive to verbal or painful stimuli. No spontaneous movements off all sedation. 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 Rodriguez - Get MRI Resp: Acute hypoxemic respiratory failure Aspiration pneumonitis - Continue mechanical ventilation - Intubated for an airway protection, now hypoxemic - Continue PRBC, increase PEEP to 10, attempt to wean FiO2 keeping oxygen saturation above 90% - No weaning until neurologically improved, and hypoxia improved - Vent bundle, DuoNeb's when necessary - Venous Doppler bilateral upper and lower extremities showed superficial thrombus of cephalic vein CVS: Cardiac arrest Shock probably cardiogenic - Status post prolonged CPR - Likely prolonged downtime prior the CPR - Diffuse anoxic changes on the CT brain - No indication for hypothermia protocol due to already 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 Mild troponin elevation most likely from CPR - Lactic acidosis improved with aggressive resuscitation - Levophed to keep map above 65 GI - Tube feeds with Jevity, Protonix for GI prophylaxis - Bowel regimen : Acute kidney injury - Unknown baseline levels - IV fluids resuscitation - Monitor I's and O's, Monitor creatinine levels - Electrolytes replacement per ICU protocol ID: Fever/Sepsis - Fever could be central but patient has bilateral infiltrate on chest x-ray - Continue broad-spectrum antibiotics with vancomycin and Zosyn - Follow up on howell culture - Bilateral upper and lower extremity venous Doppler to rule out DVT-left cephalic vein superficial thrombus HEME: - Monitor CBC CMP coags Endo: - Electrolyte replacement per protocol DVT GI prophylaxis - Teds SCDs - Subcutaneous heparin - Pepcid Critical Care: The total critical care time was 35 minutes. Time to perform other separately billable procedures was not included in the critical care time. Palliative care consulted. Prognosis appears very poor with myoclonus. Family wants full support and aggressive treatment. Dr. Rodriguez agrees chance for meaningful recovery minimal. Check MRI of the brain Ulices Ascencio MD May 03, 2017 13:20
[2017-05-03] MEDS: DEXTROSE 5% IN WATE 1000ML INJ 1,000 ML IV SCH ×3 (13:21→22:10)
[2017-05-03 14:25] LABS: BICARBONATE 32.4 MEQ/L (21.0-32.0); CALCIUM 7.8 MG/DL (8.5-10.1); CREATININE 1.15 MG/DL (0.60-1.30)
--- NOTE | 2017-05-03 18:21 | ECHRPT ---
Indication: CARDIAC ARREST CONCLUSIONS Technically difficult study. From the subcostal view, ejection fraction appears relatively normal. Otherwise not well visualized , so unable to determine wall motion abnormalities or overall ejection fraction. Right ventricle may be mildly dilated. Trace mitral valve regurgitation. There is trace tricuspid valve regurgitation. BP: 105 / 74 HR: 84 Rhythm: Sinus MEASUREMENTS (Male / Female) Normal Values Technical Quality:Technically difficult study 2D ECHO LVOT Diameter 1.9 cm M-MODE LV Diastolic Diameter MM 5.6 cm 4.2 - 5.9 / 3.9 - 5.3 cm LV Systolic Diameter MM 3.8 cm LV Ejection Fraction MM Teich 60.7 % LV Cardiac Index MM Teich 3580.9 cm/minm IVS Diastolic Thickness MM 1.0 cm 0.6 - 1.0 / 0.6 - 0.9 cm LVPW Diastolic Thickness MM 1.0 cm 0.6 - 1.0 / 0.6 - 0.9 cm LV Relative Wall Thickness MM 0.4 0.24 - 0.42 / 0.22 - 0.42 LV Mass Index MM 105.6 g/m 49 - 115 / 43 - 95 g/m Aortic Root Diameter MM 3.3 cm AV Cusp Separation MM 2.1 cm DOPPLER AV Peak Velocity 138.0 cm/s AV Peak Gradient 7.6 mmHg LVOT Peak Velocity 120.0 cm/s LVOT Peak Gradient 5.8 mmHg AV Area Cont Eq pk 2.5 cm MV Area PHT 3.3 cm Mitral E Point Velocity 81.9 cm/s Mitral A Point Velocity 80.0 cm/s Mitral E to A Ratio 1.0 LV E' Lateral Velocity 7.1 cm/s Mitral E to LV E' Lateral Ratio 11.5 LV E' Septal Velocity 6.0 cm/s Mitral E to LV E' Septal Ratio 13.6 PV Peak Velocity 114.0 cm/s PV Peak Gradient 5.2 mmHg FINDINGS LEFT VENTRICLE The left ventricle is not well visualized. From the subcostal view, ejection fraction appears relatively normal. Otherwise not well visualized , so unable to determine wall motion abnormalities or overall ejection fraction. RIGHT VENTRICLE Right ventricle may be mildly dilated. LEFT ATRIUM The left atrial size is normal. RIGHT ATRIUM The right atrial size is normal. ATRIAL SEPTUM Normal atrial septal thickness without atrial level shunting by limited color doppler interrogation. AORTA The aortic root and proximal ascending aorta are not well visualized. MITRAL VALVE Grossly normal Trace mitral valve regurgitation. No mitral valve stenosis. AORTIC VALVE The aortic valve is not well visualized. TRICUSPID VALVE Grossly normal There is trace tricuspid valve regurgitation. PULMONARY VALVE The pulmonary valve is not well visualized. PERICARDIUM No pericardial effusion. Sloan Arevalo DO (Electronically Signed) Final Date:03 May 2017 18:20
--- NOTE | 2017-05-03 18:52 | RADRPT ---
EXAM DATE/TIME: 05/03/2017 18:03 [facility] COMPARISON: CT BRAIN W/O CONTRAST, April 30, 2017, 19:29. INDICATIONS : Anoxic brain injury. MEDICAL HISTORY : Hypertension. Carcinoma, prostate. SURGICAL HISTORY : Hip surgery. ENCOUNTER: Initial ACUITY: 1 day PAIN SCORE: 0/10 LOCATION: cranial TECHNIQUE: Multiplanar, multisequence MRI of the brain was performed without contrast. FINDINGS: CEREBRUM: The ventricles are normal for age. No evidence of midline shift, mass lesion, hemorrhage or acute in farction. No extraaxial fluid collections are seen. The pituitary gland and suprasellar cistern are normal in configuration. WHITE MATTER: There is some diffuse mild T2 prolongation in the periventricular white matter. POSTERIOR FOSSA: Abnormal. There is bilateral tonsillar herniation with the inferior margin of the tonsils extending 2.2 cm below the foramen magnum. There is posterior impression and flattening upon the medula blight ed tonsillar herniation. Diffuse decreased signal on T1-weighted images in the cortex of the cerebel lum throughout. There is effacement of the 4th ventricle. DIFFUSION IMAGING: No significant asymmetries seen and no right signal on attenuation corrected images. However, on the ADC parametric images, there is diffuse decreased brightness to the supratentorial toney matter white matter. EXTRACRANIAL: Small air-fluid level in the left maxillary and right sphenoid sinus. Opacification of the ethmoids and left sphenoid. CONCLUSION: 1. Abnormal scan demonstrating significant cerebellar tonsillar herniation causing posterior compress ion upon the medulla, effacement of the 4th ventricle, and diffuse T1 prolongation of the thickened c ortex of the cerebellum. 2. Toney/white matter differentiation is preserved in the supratentorial brain,, but the ADC map image s demonstrate diffuse decrease activity throughout the supratentorial brain suggesting diffuse restri cted diffusion and global anoxia. 3. No evidence of acute or chronic blood products. Aldair Ko MD on May 03, 2017 at 18:34 Board Certified Radiologist. This report was verified electronically.
[2017-05-03] MEDS: RESP: ALBUTEROL 2.5 MG/IPRATROPIUM 0.5 MG NEB (PRN) INH (21:21)
[2017-05-04] VITALS (14 sets, daily range): BP systolic 89–128; BP diastolic 63–87; PULSE 60–76; RESP 18; TEMP 93.5–97.8; O2SAT 90–100
[2017-05-04] MEDS: VANCOMYCIN 1,500 MG/NS 500 ML IV SCH ×4 (02:37→16:53)
[2017-05-04] MEDS: PIPERACIL-TAZO 4.5 GM PREMIX 100 ML IV SCH ×4 (03:10→22:01)
[2017-05-04] MEDS: CHLORHEXIDINE GLUCONATE 2 % 1 PACK (2 CLOTHS) TOP SCH (03:44)
[2017-05-04] MEDS: DEXTROSE 5% IN WATE 1000ML INJ 1,000 ML IV SCH ×5 (03:46→22:01)
[2017-05-04] MEDS: NOREPINEPHRINE 4 MG/D5W 250 ML IV PRN ×3 (04:37→16:55)
[2017-05-04 05:09] LABS: AUTOMATED NEUTROPHIL # 5.9 TH/MM3 (1.8-7.7); BASOPHIL % 0.4 % (0.0-2.0); EOSINOPHIL % 0.1 % (0.0-4.0); HEMATOCRIT 45.9 % (39.0-51.0); HEMOGLOBIN 14.8 GM/DL (13.0-17.0); LYMPH % 10.6 % (9.0-44.0); LYMPHOCYTE # 0.8 TH/MM3 (1.0-4.8); MEAN CELL VOLUME 97.1 FL (80.0-100.0); MEAN CORPUSCULAR HEMOGLOBIN 31.3 PG (27.0-34.0); MEAN CORPUSCULAR HGB CONC 32.3 % (32.0-36.0); MEAN PLATELET VOLUME 9.9 FL (7.0-11.0); MONOCYTE # 0.8 TH/MM3 (0-0.9); NEUT % 78.9 % (16.0-70.0); PLATELET COUNT 110 TH/MM3 (150-450); RED BLOOD COUNT 4.73 MIL/MM3 (4.50-5.90); RED CELL DISTRIBUTION WIDTH 15.8 % (11.6-17.2); WHITE BLOOD COUNT 7.5 TH/MM3 (4.0-11.0)
--- NOTE | 2017-05-04 05:22 | RADRPT ---
EXAM DATE/TIME: 05/04/2017 04:31 [facility] COMPARISON: CHEST SINGLE AP, May 03, 2017, 4:20. INDICATIONS : Short of breath. MEDICAL HISTORY : Hypertension. Rheumatoid arthritis. Smoker. SURGICAL HISTORY : None. ENCOUNTER: Subsequent ACUITY: 1 week PAIN SCORE: 0/10 LOCATION: Bilateral chest FINDINGS: Left jugular line tip overlies the SVC. Enteric tube courses beneath the diaphragm. Endotracheal tube removed. There is patchy basilar airspace disease and small effusion suspected. CONCLUSION: No significant change has occurred. Russ Lang MD on May 04, 2017 at 5:19 Board Certified Radiologist. This report was verified electronically.
[2017-05-04 05:28] LABS: ALBUMIN 1.6 GM/DL (3.4-5.0); ALKALINE PHOSPHATASE 54 U/L (45-117); ALT (GPT) 37 U/L (12-78); AST (GOT) 127 U/L (15-37); BICARBONATE 30.1 MEQ/L (21.0-32.0); BLOOD UREA NITROGEN 21 MG/DL (7-18); CHLORIDE 136 MEQ/L (98-107); GLOMERULAR FILTRATION RATE 79 ML/MIN (>89); GLUCOSE,RANDOM 244 MG/DL (74-106); TOTAL BILIRUBIN ADULT 2.6 MG/DL (0.2-1.0); TOTAL PROTEIN 6.1 GM/DL (6.4-8.2)
[2017-05-04 05:31] LABS: SODIUM (NA) 172 MEQ/L (136-145)
[2017-05-04] MEDS: HEPARIN SODIUM - SQ 10,000 UNITS/ML VIAL SQ SCH ×3 (06:00→22:02)
[2017-05-04] MEDS: DOCUSATE SODIUM 50 MG/SENNA 8.6 MG TAB PO SCH ×2 (09:00→22:01)
[2017-05-04] MEDS: FAMOTIDINE 20 MG/2 ML VIAL IV PUSH SCH ×2 (09:11→22:02)
[2017-05-04] MEDS: INSULIN ASPART SUPPLEMENTAL SCALE SQ SCH ×4 (09:14→22:02)
[2017-05-04] MEDS: ARTIFICIAL TEARS OPTH SOLN 15 ML BTL EACH EYE SCH ×3 (09:16→16:54)
[2017-05-04] MEDS: SODIUM CHLORIDE 0.9% FLUSH 10 ML FLUSH IV FLUSH SCH ×2 (09:16→22:01)
[2017-05-04] MEDS: DESMOPRESSIN ACETATE 4 MCG/ML VIAL SQ SCH ×2 (09:21→22:02)
[2017-05-04] MEDS: levETIRAcetam INJ 100 ML IV SCH ×2 (09:23→22:01)
--- NOTE | 2017-05-04 09:42 | HHI.CCPN ---
Subjective Remarks/Hospital Course 77-year-old male admitted status post cardiac arrest. Per EMS report they gave him 3 epinephrine and a dose of bicarb with return of spontaneous circulation after approximately 15-20 minutes. Family states that they were with him, he seemed to perhaps be a little short of breath, but was not complaining of anything. One son left and 30 minutes later another son arrived and found him slumped in the chair. Family states he has a history of high blood pressure and prostate cancer, no heart problems that they know of. In the emergency department patient is intubated, unresponsive, with myoclonic jerks in all 4 extremities. SUBJ 05/01: Appears to have sustained severe anoxic brain injury. According given due to muscle artifact during EEG. Diffuse encephalopathy, no seizure. Spiking fever up to 104.7. Howell cultures sent start vancomycin and Zosyn. Palliative care consult pending 05/02: Clinically unresponsive. On Versed 3 mg/h for myoclonus. EEG showed moderate to severe encephalopathy no seizures. Family wants to continue full aggressive care. I will consult neurology to assist with prognostication as the patient seems to have sustained severe anoxic injury. FiO2 remains high at 100%. Continue to spike fever currently on [place] Zosyn. 05/03: Remains intubated critical, off all sedation and no response to painful stimuli. Has spontaneous breathing above the ventilator set rate. Urine output more than 6 L in the last 24 hours, sodium has risen to 163 concerning for at least partial DI. Serum osmolality, urine osmolality and urine specific gravity ordered. Will bolus half-normal saline 1 L and change fluid to D5 W at 175 mL/h 05/04: Appears to be in severe DI. Sodium has climbed to 172. Getting D5W and free water flushes. Started on DDAVP 2 mcg every 12. Clinical exam concerning for brain -see neruo exam. Brain flow study ordered. Objective Vital Signs Date Time Temp Pulse Resp B/P (MAP) Pulse Ox O2 Delivery O2 Flow Rate FiO2 05/04/17 08:27 94 45 05/04/17 06:00 77 90/62 05/04/17 03:00 97.8 18 04/30/17 21:53 Ventilator 04/30/17 17:47 15.00 Intake and Output 05/04/17 05/04/17 05/05/17 08:00 16:00 00:00 Intake Total 3038 ml Output Total 3750 ml Balance -712 ml Result Diagram: 05/04/17 0350 05/04/17 0350 Other Results Microbiology Date/Time Source Procedure Growth Status 05/01/17 15:00 Nasal Aspirate Influenza Types A,B Antigen (IRLANDA) - Final NEGATIVE FOR FLU A AND B ANTIGEN.... Complete Imaging Last [address] 04/30/171746 Signed Impressions: Service Date/Time: April 19:29 - CONCLUSION: Diffusely abnormal brain with edema and loss of montero-white differentiation, presumably a global hypoxic event. No bleed or focal abnormality demonstrated. Sonu Wesley MD Chest X-Ray 04/30/171746 Signed Impressions: Service Date/Time: April 18:00 - CONCLUSION: Right greater the left basilar consolidation. There is considerable right-sided volume loss. Endotracheal tube and left IJ line appropriate positions as above. Sonu Wesley MD Objective Remarks GENERAL: Comatose elderly -[place] male SKIN: Warm and dry. HEAD: Normocephalic. EYES: No scleral icterus. No injection or drainage. Pupils 4 mm unresponsive, fixed no corneal reflex NECK: Supple, trachea midline. No JVD or lymphadenopathy. CARDIOVASCULAR: Regular rate and rhythm without murmurs, gallops, or rubs. On Levophed to maintain map above 65 RESPIRATORY: Breath sounds equal bilaterally. Diminished at the bases with coarse crackles. No spontaneous breathing bowel ventilated GASTROINTESTINAL: Abdomen soft, non-tender, nondistended. MUSCULOSKELETAL: No cyanosis, or edema. NEURO: GCS: 3T. No spontaneous breathing, no withdrawal to pain, no corneal no pupillary reflex no cough no gag, no doll's eye, no oculovestibular reflex. Clinical exam concerning for brain Urinary Catheter: Yes Assessment to: Continue A/P Assessment and Plan Neuro: Severe anoxic brain injury/possible brain Encephalopathy DI - MRIs show severe anoxic injury and tonsillar herniation. 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 Rodriguez -Continue DDAVP and free water replacement Resp: Acute hypoxemic respiratory failure Aspiration pneumonitis - Continue mechanical ventilation - Intubated for an airway protection, now hypoxemic - Continue PRVC, PEEP to 10, wean FiO2 keeping oxygen saturation above 90% - No weaning until neurologically improved, and hypoxia improved - Vent bundle, DuoNeb's when necessary - Venous Doppler bilateral upper and lower extremities showed superficial thrombus of cephalic vein CVS: Cardiac arrest Shock probably cardiogenic - Status post prolonged CPR - Likely prolonged downtime prior the CPR - Diffuse anoxic changes on the CT brain, MRI - No indication for hypothermia protocol due to already severely 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 Mild troponin elevation most likely from CPR - Lactic acidosis improved with aggressive resuscitation - Levophed to keep map above 65 GI - Tube feeds with Jevity, Protonix for GI prophylaxis - Bowel regimen : Acute kidney injury DI - continue DDAVP and free water replacement - Unknown baseline levels - IV fluids resuscitation - Monitor I's and O's, Monitor creatinine levels - Electrolytes replacement per ICU protocol ID: Fever/Sepsis - Fever could be central but patient has bilateral infiltrate on chest x-ray - Continue broad-spectrum antibiotics with vancomycin and Zosyn - Follow up on howell culture - Bilateral upper and lower extremity venous Doppler to rule out DVT-left cephalic vein superficial thrombus HEME: - Monitor CBC CMP coags Endo: - Electrolyte replacement per protocol DVT GI prophylaxis - Teds SCDs - Subcutaneous heparin - Pepcid Critical Care: The total critical care time was 35 minutes. Time to perform other separately billable procedures was not included in the critical care time. Palliative care consulted. Prognosis appears very poor with myoclonus, now appears to have progressed to brain . We will get a nuclear medicine brain flow study. Discussed with Ulices Medina MD May 04, 2017 09:42
[2017-05-04] MEDS ORDERED: POTASSIUM CHLORIDE 25 MEQ EFFERVESCENT TAB PO ONE (10:00)
[2017-05-04] MEDS: CHLORHEXIDINE 0.12% (ORAL KIT) 15 ML CUP MT SCH ×2 (10:43→20:00)
[2017-05-04] MEDS: FREE WATER OG-TUBE SCH ×2 (12:00→16:54)
--- NOTE | 2017-05-04 13:38 | RADRPT ---
EXAM DATE/TIME: 05/04/2017 12:28 [facility] COMPARISON: No previous studies available for comparison. INDICATIONS : Post cardiac arrest. Anoxic brain injury. DOSE: 25 mCi Tc99m DTPA IV The diagnosis of brain is clinical and the results of this test should be taken in the content of clinical and electrocephalographic data. MEDICAL HISTORY : Hypertension. Carcinoma, prostate. SURGICAL HISTORY : Unknown. ENCOUNTER: Initial ACUITY: 2 days PAIN SCALE: Non-responsive LOCATION: Head. TECHNIQUE: Anterior dynamic imaging as well as delayed static imaging. FINDINGS: There is persistent intracranial blood flow. CONCLUSION: Persistent intracranial blood flow.. Italo Chirinos MD FACR on May 04, 2017 at 13:35 Board Certified Radiologist. This report was verified electronically.
[2017-05-04] MEDS ORDERED: PHARMACY ORDERED LAB ONE (14:45)
[2017-05-04 17:03] LABS: VANCOMYCIN TROUGH 17.1 MCG/ML (5.0-10.0)
--- NOTE | 2017-05-04 17:04 | HHI.HCPN ---
Reason for visit a. To assist with evaluation and management of symptoms including:shortness of breath b. To assist medical decision maker(s) with: better understanding of current medical conditions; weighing benefits/burdens of medical treatment options; making medical treatment decisions. Subjective/Interval History Patient seen and examined in his room on [facility]. Patient is comatose, unresponsive, intubated on mechanica ventilation with no spontaneous respirations. Pupils non-reactive to light, no withdrawal to noxious stimulation. Vent settings AC 18/550/8/45% with O 2 saturation in the low 90s. Patient is currently on 22mcg/min Levophed infusion. Neurology Dr. Spence consulted 05/02/17 to evaluate anoxic encephalopathy. Ultrasound to left upper extremity revealed thrombus to left cephalic vein occlusive and nonocclusive. Brain MRI on 05/03/17 revealed significant cerebellar tonsillar herniation causing posterior compression upon the mid tubular, effacement of the fourth ventricle and diffuse T1 prolongation of the thickened cortex of the cerebellum and diffuse decreased activity throughout the supratentorial brain suggesting diffuse restricted diffusion and global anoxia. No acute or chronic blood products. Patient is also in DI. Maintenance IV fluids changed to D5W, free water flushes and started on DDAVP. Brain flow study today 05/04/17 revealed persistent intracranial blood flow. Meeting with patient`s 2 sons and family friends. Updated on patient`s status, diagnostic test results and clinical findings. Explained to son that patient`s clinical findings are showing poor prognosis and that patient may likely progress to brain . Readdressed code status and son still wants patient to be resuscitated. Further explained to patient`s son that another brain flow study will probably be done and that he still can make a choice of compassionately withdrawing patient from life support given patient`s clinical findings. Patient`s son requested to be informed/called if his father would be resuscitated again. . Family/friend interactions Patient`s 2 sons and family friends. . Advance Directives Living Will: Never completed Health Care Surrogate: Never completed Durable Power of Welt Rander: Never completed Advance Directive Specifics Health Care Surrogate(s): Health care Proxys SonManolo Hooks Jr- [phone] cell(decision-maker)- Call for any medical decisions Elpidio -Luis Antonio Young -[phone] cell/[phone](home) Daughter-Amy MartinesAlqlmt-[phone] cha Telephone call to Luis Antonio Yonug (son) and Amy Martines (daughter) and they both opted out and agreed to defer all medical decision making to their brother Hector French Jr. . Objective Vital Signs Date Time Temp Pulse Resp B/P (MAP) Pulse Ox O2 Delivery O2 Flow Rate FiO2 05/04/17 15:36 93 45 05/04/17 12:15 100 100 05/04/17 12:05 91 45 05/04/17 11:00 68 05/04/17 11:00 97.8 68 18 125/87 (100) 93 05/04/17 09:17 68 96/60 05/04/17 08:27 94 45 05/04/17 08:00 45 05/04/17 07:00 97.6 64 18 91/63 (72) 90 05/04/17 07:00 64 05/04/17 06:00 77 90/62 05/04/17 05:00 83 91/60 05/04/17 04:37 72 88/58 05/04/17 04:00 40 05/04/17 03:56 92 40 05/04/17 03:00 76 05/04/17 03:00 97.8 67 18 109/67 (81) 94 05/04/17 03:00 67 109/67 05/04/17 01:00 68 96/64 05/04/17 00:20 94 40 05/04/17 00:00 40 05/04/17 00:00 70 101/70 05/03/17 23:25 69 98/65 05/03/17 23:00 98.7 69 18 109/71 (84) 94 05/03/17 23:00 70 05/03/17 21:00 94 40 05/03/17 20:00 40 05/03/17 19:00 75 05/03/17 19:00 98.6 73 18 105/65 (78) 94 05/03/17 18:00 100 100 05/03/17 17:30 95 40 Intake & Output 05/04/17 05/04/17 07:00 19:00 Intake Total 3238 ml Output Total 3770.0 ml 20.0 ml Balance -532.0 ml -20.0 ml IV Total 2900 ml Tube Feeding 338 ml Output Urine Total 3750 ml Tube Feeding Residual Discard 20.0 ml 20.0 ml # Bowel Movements 1 Physical Exam CONSTITUTIONAL/GENERAL: This is an adequately nourished patient, in no apparent distress. TUBES/LINES/DRAINS: ETT, Parikh catheter, OG tube, SCDs SKIN: No jaundice, rashes, or lesions. Ecchymoses on upper extremities. No wounds seen anteriorly. Skin temperature appropriate. Not diaphoretic. HEAD: Atraumatic. Normocephalic. EYES: Pupils 3mm nonreactive to light. No scleral icterus. No injection or drainage. Fundi not examined. ENT: Hearing-unable to assess patient intubated and sedated. Nose without bleeding or purulent drainage. Moist oral mucosa. NECK: Trachea midline. Supple, nontender. CARDIOVASCULAR:Irregular rhythm without murmurs, gallops, or rubs. No JVD. Peripheral pulses symmetric. RESPIRATORY/CHEST: Symmetric, unlabored respirations. Clear to auscultation. Breath diminished in the bases. No wheezes, rales, or rhonchi. GASTROINTESTINAL: Abdomen soft, non-tender, nondistended.No guarding. Bowel sounds hypoactive. TF via OGT. GENITOURINARY: Without palpable bladder distension. Parikh catheter in place. MUSCULOSKELETAL: Extremities without clubbing, cyanosis, or edema. No joint tenderness or effusion noted. No calf tenderness. No mottling or clubbing. NEUROLOGICAL: Comatose, Intubated on mechanical ventilation. No pupillary reaction. Not following commands. PSYCHIATRIC: Unable to assess at this time. Diagnostic Tests Laboratory Laboratory Tests Test 05/02/17 04:00 05/02/17 11:15 05/03/17 02:45 05/03/17 13:15 Creatinine 1.21 MG/DL (0.60-1.30) 1.09 MG/DL (0.60-1.30) Estimat Glomerular Filtration Rate 70 ML/MIN (>89) 80 ML/MIN (>89) Troponin I 0.11 NG/ML (0.02-0.05) White Blood Count 9.7 TH/MM3 (4.0-11.0) Red Blood Count 5.42 MIL/MM3 (4.50-5.90) Hemoglobin 17.0 GM/DL (13.0-17.0) Hematocrit 51.7 % (39.0-51.0) Mean Corpuscular Volume 95.5 FL (80.0-100.0) Mean Corpuscular Hemoglobin 31.3 PG (27.0-34.0) Mean Corpuscular Hemoglobin Concent 32.8 % (32.0-36.0) Red Cell Distribution Width 15.7 % (11.6-17.2) Platelet Count 100 TH/MM3 (150-450) Mean Platelet Volume 9.7 FL (7.0-11.0) Neutrophils (%) (Auto) 80.1 % (16.0-70.0) Lymphocytes (%) (Auto) 6.0 % (9.0-44.0) Monocytes (%) (Auto) 13.6 % (0.0-8.0) Eosinophils (%) (Auto) 0.1 % (0.0-4.0) Basophils (%) (Auto) 0.2 % (0.0-2.0) Neutrophils # (Auto) 7.8 TH/MM3 (1.8-7.7) Lymphocytes # (Auto) 0.6 TH/MM3 (1.0-4.8) Monocytes # (Auto) 1.3 TH/MM3 (0-0.9) Eosinophils # (Auto) 0.0 TH/MM3 (0-0.4) Basophils # (Auto) 0.0 TH/MM3 (0-0.2) CBC Comment DIFF FINAL Differential Comment Blood Urea Nitrogen 21 MG/DL (7-18) Random Glucose 166 MG/DL (74-106) Total Protein 6.5 GM/DL (6.4-8.2) Albumin 1.8 GM/DL (3.4-5.0) Calcium Level 7.9 MG/DL (8.5-10.1) Alkaline Phosphatase 65 U/L (45-117) Aspartate Amino Transf (AST/SGOT) 221 U/L (15-37) Alanine Aminotransferase (ALT/SGPT) 41 U/L (12-78) Total Bilirubin 3.9 MG/DL (0.2-1.0) Sodium Level 163 MEQ/L (136-145) Potassium Level 3.8 MEQ/L (3.5-5.1) Chloride Level 127 MEQ/L (98-107) Carbon Dioxide Level 31.9 MEQ/L (21.0-32.0) Anion Gap 4 MEQ/L (5-15) Vancomycin Level Trough 9.5 MCG/ML (5.0-10.0) Urine Specific [place] 1.005 (1.002-1.035) Urine Osmolality 109 MOSM/KG (300-1300) Test 05/03/17 13:20 05/04/17 03:50 05/04/17 08:30 Blood Urea Nitrogen 20 MG/DL (7-18) 21 MG/DL (7-18) Creatinine 1.15 MG/DL (0.60-1.30) 1.10 MG/DL (0.60-1.30) Random Glucose 177 MG/DL (74-106) 244 MG/DL (74-106) Calcium Level 7.8 MG/DL (8.5-10.1) 8.0 MG/DL (8.5-10.1) Sodium Level 165 MEQ/L (136-145) 172 MEQ/L (136-145) Potassium Level 3.8 MEQ/L (3.5-5.1) 3.2 MEQ/L (3.5-5.1) Chloride Level 127 MEQ/L (98-107) 136 MEQ/L (98-107) Carbon Dioxide Level 32.4 MEQ/L (21.0-32.0) 30.1 MEQ/L (21.0-32.0) Anion Gap 6 MEQ/L (5-15) 6 MEQ/L (5-15) Estimat Glomerular Filtration Rate 75 ML/MIN (>89) 79 ML/MIN (>89) Serum Osmolality 351 MOSM/KG (275-295) White Blood Count 7.5 TH/MM3 (4.0-11.0) Red Blood Count 4.73 MIL/MM3 (4.50-5.90) Hemoglobin 14.8 GM/DL (13.0-17.0) Hematocrit 45.9 % (39.0-51.0) Mean Corpuscular Volume 97.1 FL (80.0-100.0) Mean Corpuscular Hemoglobin 31.3 PG (27.0-34.0) Mean Corpuscular Hemoglobin Concent 32.3 % (32.0-36.0) Red Cell Distribution Width 15.8 % (11.6-17.2) Platelet Count 110 TH/MM3 (150-450) Mean Platelet Volume 9.9 FL (7.0-11.0) Neutrophils (%) (Auto) 78.9 % (16.0-70.0) Lymphocytes (%) (Auto) 10.6 % (9.0-44.0) Monocytes (%) (Auto) 10.0 % (0.0-8.0) Eosinophils (%) (Auto) 0.1 % (0.0-4.0) Basophils (%) (Auto) 0.4 % (0.0-2.0) Neutrophils # (Auto) 5.9 TH/MM3 (1.8-7.7) Lymphocytes # (Auto) 0.8 TH/MM3 (1.0-4.8) Monocytes # (Auto) 0.8 TH/MM3 (0-0.9) Eosinophils # (Auto) 0.0 TH/MM3 (0-0.4) Basophils # (Auto) 0.0 TH/MM3 (0-0.2) CBC Comment DIFF FINAL Differential Comment Total Protein 6.1 GM/DL (6.4-8.2) Albumin 1.6 GM/DL (3.4-5.0) Alkaline Phosphatase 54 U/L (45-117) Aspartate Amino Transf (AST/SGOT) 127 U/L (15-37) Alanine Aminotransferase (ALT/SGPT) 37 U/L (12-78) Total Bilirubin 2.6 MG/DL (0.2-1.0) Stool C. difficile Toxin (PCR) NEGATIVE (NEGATIVE) Stl C. difficile Toxin Epiderm 027 PRESUMPTIVE NEGATIVE Result Diagram: 05/04/17 03505/04/17 035 Imaging Last 72 hours Impressions Chest X-Ray 05/04/17 06 Signed Impressions: Service Date/Time: Thursday, May 04, 2017 04:31 - CONCLUSION: No significant change has occurred. Russ Lang MD Brain Flow Nuclear Medicine 05/04/17 0000 Impressions: Service Date/Time: Thursday, May 04, 2017 12:28 - CONCLUSION: Persistent intracranial blood flow.. Italo Chirinos MD FACR Chest X-Ray 05/03/17 06 Signed Impressions: Service Date/Time: Wednesday, May 03, 2017 04:20 - CONCLUSION: 1. Support apparatus in good position. Bilateral mostly basilar airspace disease relatively stable. Rasta Osorio MD Brain MRI 05/03/17 Signed Impressions: Service Date/Time: Wednesday, May 03, 2017 18:03 - CONCLUSION: 1. Abnormal scan demonstrating significant cerebellar tonsillar herniation causing posterior compression upon the medulla, effacement of the 4th ventricle, and diffuse T1 prolongation of the thickened cortex of the cerebellum. 2. Toney/white matter differentiation is preserved in the supratentorial brain,, but the ADC map images demonstrate diffuse decrease activity throughout the supratentorial brain suggesting diffuse restricted diffusion and global anoxia. 3. No evidence of acute or chronic blood products. Aldair Ko MD Upper Extremity Ultrasound 05/02/17 0000 Signed Impressions: Service Date/Time: Tuesday, May 02, 2017 16:52 - CONCLUSION: Thrombus in the left cephalic vein occlusive and nonocclusive. Negative right upper extremity Juan Edwards MD Lower Extremity Ultrasound 05/02/17 Signed Impressions: Service Date/Time: Tuesday, May 02, 2017 16:29 - CONCLUSION: Normal examination. No evidence of DVT Juan Edwards MD Chest X-Ray 05/02/17 Signed Impressions: Service Date/Time: Tuesday, May 02, 2017 09:06 - CONCLUSION: Worsening lung exam with increasing density overlying the right hemithorax. A this may reflect areas of subsegmental atelectasis/consolidation or layering right- sided pleural fluid. Favor atelectasis and airspace consolidation.. Luz Dill MD Procedures 05/01/2017-intubation 05/01/2017-left IJ central line placement . Assessment and Plan Disease Oriented Problem List: (1) Cardiac arrest (2) Respiratory failure (3) Encephalopathy (4) Acute kidney injury (5) Lactic acidosis Symptom Scale: (1) Shortness of breath Pertinent Non-Medical Issues Psychosocial:Patient was born and raised in [place]. He is . He has 3 adult children, one daughter and 2 sons. Patient did not serve in the . 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 Spiritual: Roman Catholic Legal: Patient does not have any advanced directives Ethical issues impacting care: None identified at this time . Important Contacts Manolo Tanner - [phone] cell(decision-maker)Call for any medical decisions Son -Luis Antonio Young -[phone] cell/[phone](home) Daughter-Amy MartinesLxjoog-[phone] cell Telephone call to Luis Antonio Young (son) and Amy Martines (daughter) and they both opted out and agreed to defer all medical decision making to their brother Hector French Jr. . Prognosis Mr. Valencia is a 77 years old with a past medical history of prostate cancer, and hypertension. Patient was brought in by EMS after a cardiac arrest. Per EMS report, patient had return of spontaneous circulation 15-20minutes after they had administered 3 amps epinephrine and 1 amp bicarb. Due to prolonged return of spontaneous circulation, and diffusely abnormal brain with edema and loss of toney-white differentiation presumably a global hypoxic event on CT head on arrival, patient is at risk for further complications, deterioration and decline. . Code Status: Full Code Plan PLAN: Legal decision maker: Patient is currently intubated, sedated on mechanical ventilation and unable to participate in medical decision making. It is not known if patient will be able to regain capacity at this time. Patient son Hector French Jr will serve as his health care proxy. Goals: Aggressive Meeting with patient`s 2 sons and family friends. Updated on patient`s status, diagnostic test results and clinical findings. Explained to son that patient`s clinical findings are showing poor prognosis and that patient may likely progress to brain . Readdressed code status and son still wants patient to be resuscitated. Further explained to patient`s son that another brain flow study will probably be done and that he still can make a choice of compassionately withdrawing patient from life support given patient`s clinical findings. Patient`s son requested to be informed/called if his father would be resuscitated again. CODE STATUS: Full Code SYMPTOMS: * Shortness of breath: Patient suffered a cardiac arrest. Chest x-ray 05/01 revealed improvement of pulmonary vascular congestion bilaterally and right basilar patient is consistent with possible pneumonia. Currently intubated and on mechanical ventilation. FiO2 45% with O2 saturation in the mid and low 90s. Palliative care will continue to follow the patient during hospital course as condition evolves, to assist patient/decision-maker with understanding of their medical conditions, weighing benefits/burdens of treatment options, for clarification of goals of treatment. Additionally will assist with any symptoms of palliative concern. Attestation To help prompt me to consider important information that might be impacting today's encounter and assessment, information from prior notes written by myself or my colleagues may have been "brought forward" into today's note. My signature on this note, however, is an attestation that I personally performed the exam, history, and/or decision-making noted today, and, unless otherwise indicated, the interactions with patient, family, and staff as well as the review of records all occurred today. I also attest that the listed assessment and stated plan reflect my best clinical judgment today based on the combination of historical information, prior notes, and today's exam/ interactions. When time spent is documented, it refers only to time spent today by the signer, or if indicated, combined time spent today by collaborating physician/nurse practitioner. Norberto Villarreal May 04, 2017 17:04
[2017-05-04] MEDS: NOREPINEPHRINE-DEXTROSE DRIP 250 ML IV PRN (21:49)
[2017-05-05] VITALS (17 sets, daily range): BP systolic 87–123; BP diastolic 55–75; PULSE 85–108; RESP 18–23; TEMP 98.2–98.8; O2SAT 92–97
[2017-05-05] MEDS: NOREPINEPHRINE-DEXTROSE DRIP 250 ML IV PRN ×2 (00:18→03:03)
[2017-05-05] MEDS: POTASSIUM CHLOR 40 MEQ PREMIX 100 ML IV SCH ×2 (00:19→04:21)
[2017-05-05] MEDS: DEXTROSE 5% IN WATE 1000ML INJ 1,000 ML IV SCH ×4 (02:59→22:25)
[2017-05-05] MEDS: VANCOMYCIN 1,500 MG/NS 500 ML IV SCH ×4 (02:59→17:37)
[2017-05-05] MEDS: CHLORHEXIDINE GLUCONATE 2 % 1 PACK (2 CLOTHS) TOP SCH (04:00)
[2017-05-05] MEDS: PIPERACIL-TAZO 4.5 GM PREMIX 100 ML IV SCH ×4 (04:20→22:14)
[2017-05-05] MEDS: RESP: ALBUTEROL 2.5 MG/IPRATROPIUM 0.5 MG NEB (PRN) INH ×2 (04:26→19:45)
[2017-05-05] MEDS: FREE WATER OG-TUBE SCH ×4 (05:23→17:50)
[2017-05-05] MEDS: NOREPINEPHRINE 16 MG/D5W 250 ML IV PRN ×6 (05:30→17:21)
[2017-05-05] MEDS: HEPARIN SODIUM - SQ 10,000 UNITS/ML VIAL SQ SCH ×3 (05:31→22:14)
[2017-05-05] MEDS: INSULIN ASPART SUPPLEMENTAL SCALE SQ SCH ×4 (08:03→21:02)
[2017-05-05] MEDS: CHLORHEXIDINE 0.12% (ORAL KIT) 15 ML CUP MT SCH ×2 (08:06→20:00)
[2017-05-05] MEDS: FAMOTIDINE 20 MG/2 ML VIAL IV PUSH SCH ×2 (08:28→21:00)
[2017-05-05] MEDS: SODIUM CHLORIDE 0.9% FLUSH 10 ML FLUSH IV FLUSH SCH ×2 (08:30→21:03)
[2017-05-05] MEDS: levETIRAcetam INJ 100 ML IV SCH ×2 (08:30→21:03)
[2017-05-05] MEDS: ARTIFICIAL TEARS OPTH SOLN 15 ML BTL EACH EYE SCH ×3 (08:30→17:44)
[2017-05-05] MEDS: DOCUSATE SODIUM 50 MG/SENNA 8.6 MG TAB PO SCH ×2 (08:31→21:00)
[2017-05-05] MEDS: DESMOPRESSIN ACETATE 4 MCG/ML VIAL SQ SCH ×2 (08:48→21:01)
--- NOTE | 2017-05-05 09:01 | HHI.CCPN ---
Subjective Remarks/Hospital Course 77-year-old male admitted status post cardiac arrest. Per EMS report they gave him 3 epinephrine and a dose of bicarb with return of spontaneous circulation after approximately 15-20 minutes. Family states that they were with him, he seemed to perhaps be a little short of breath, but was not complaining of anything. One son left and 30 minutes later another son arrived and found him slumped in the chair. Family states he has a history of high blood pressure and prostate cancer, no heart problems that they know of. In the emergency department patient is intubated, unresponsive, with myoclonic jerks in all 4 extremities. SUBJ 05/01: Appears to have sustained severe anoxic brain injury. According given due to muscle artifact during EEG. Diffuse encephalopathy, no seizure. Spiking fever up to 104.7. Howell cultures sent start vancomycin and Zosyn. Palliative care consult pending 05/02: Clinically unresponsive. On Versed 3 mg/h for myoclonus. EEG showed moderate to severe encephalopathy no seizures. Family wants to continue full aggressive care. I will consult neurology to assist with prognostication as the patient seems to have sustained severe anoxic injury. FiO2 remains high at 100%. Continue to spike fever currently on [place] Zosyn. 05/03: Remains intubated critical, off all sedation and no response to painful stimuli. Has spontaneous breathing above the ventilator set rate. Urine output more than 6 L in the last 24 hours, sodium has risen to 163 concerning for at least partial DI. Serum osmolality, urine osmolality and urine specific gravity ordered. Will bolus half-normal saline 1 L and change fluid to D5 W at 175 mL/h 05/04: Appears to be in severe DI. Sodium has climbed to 172. Getting D5W and free water flushes. Started on DDAVP 2 mcg every 12. Clinical exam concerning for brain -see neruo exam. Brain flow study ordered. 05/05: Patient continues to show clinical evidence of brain, but brain flow study yesterday showed minimal flow in the sagittal sinus according to Dr. Ignacio Chirinos. I will proceed with apnea testing today as the patient had been off sedation for approximately 72 hours. Repeat brain flow testing in 24 hours if apnea test positive for brain . Na improved to 157 Objective Vital Signs Date Time Temp Pulse Resp B/P (MAP) Pulse Ox O2 Delivery O2 Flow Rate FiO2 05/05/17 08:07 92 50 05/05/17 08:00 89 83/59 05/05/17 03:14 98.6 18 Intake and Output 05/05/17 05/05/17 05/06/17 08:00 16:00 00:00 Intake Total 2810 ml Output Total 1375 ml Balance 1435 ml Result Diagram: 05/04/17 0350 05/05/17 0305 Imaging Last [address] 04/30/171746 Signed Impressions: Service Date/Time: April 19:29 - CONCLUSION: Diffusely abnormal brain with edema and loss of montero-white differentiation, presumably a global hypoxic event. No bleed or focal abnormality demonstrated. Sonu Wesley MD Chest X-Ray 04/30/171746 Signed Impressions: Service Date/Time: April 18:00 - CONCLUSION: Right greater the left basilar consolidation. There is considerable right-sided volume loss. Endotracheal tube and left IJ line appropriate positions as above. Sonu Wesley MD Objective Remarks GENERAL: Comatose elderly -[place]ian male SKIN: Warm and dry. HEAD: Normocephalic. EYES: No scleral icterus. No injection or drainage. Pupils 4 mm unresponsive, fixed no corneal reflex NECK: Supple, trachea midline. No JVD or lymphadenopathy. CARDIOVASCULAR: Regular rate and rhythm without murmurs, gallops, or rubs. On Levophed to maintain map above 65 RESPIRATORY: Breath sounds equal bilaterally. Diminished at the bases with coarse crackles. No spontaneous breathing bowel ventilated GASTROINTESTINAL: Abdomen soft, non-tender, nondistended. MUSCULOSKELETAL: No cyanosis, or edema. NEURO: GCS: 3T. No spontaneous breathing, no withdrawal to pain, no corneal no pupillary reflex no cough no gag, no doll's eye, no oculovestibular reflex. Clinical exam concerning for brain . Apnea test pending Urinary Catheter: Yes Assessment to: Continue Vascular Central Line Catheter: Yes Assessment to: Continue A/P Assessment and Plan Neuro: Severe anoxic brain injury/possible brain Encephalopathy DI - MRIs show severe anoxic injury and tonsillar herniation. - Clinical exam concerning for brain (no spontaneous breathing, no withdrawal to pain, no corneal no pupillary reflex no cough no gag, no doll's eye, no oculovestibular reflex) - Nuclear medicine brain flow 05/04 showed minimal flow in sagittal sinus - Apnea testing today and if positive for brain , repeat nuclear medicine flow study tomorrow 05/06 - Rpt EEG today. - EEG 05/01 moderate to severe anoxic injury, no seizures - Palliative care following - Diffuse anoxic changes on the CT brain, No indication for hypothermia protocol due to already severely damaged PATIENT COORDINATOR - Continue Keppra for myoclonus - Neurology Dr. Rodriguez - Continue DDAVP and free water replacement Resp: Acute hypoxemic respiratory failure Aspiration pneumonitis - Continue mechanical ventilation - Intubated for an airway protection, now hypoxemic - Continue PRVC, PEEP to 10, wean FiO2 keeping oxygen saturation above 90% - No weaning until neurologically improved, and hypoxia improved - Vent bundle, DuoNeb's when necessary - Venous Doppler bilateral upper and lower extremities showed superficial thrombus of cephalic vein CVS: Cardiac arrest Shock probably cardiogenic - Status post prolonged CPR - Likely prolonged downtime prior the CPR - Diffuse anoxic changes on the CT brain, MRI - There was no indication for hypothermia protocol due to already severely damaged PATIENT COORDINATOR - 2D echo. Mild troponin elevation most likely from CPR - Lactic acidosis improved with aggressive resuscitation - Levophed to keep map above 65 GI - Tube feeds with Jevity, Protonix for GI prophylaxis - Bowel regimen : Acute kidney injury DI - continue DDAVP and free water replacement - Unknown baseline levels of creat - IV fluids resuscitation - Monitor I's and O's, Monitor creatinine levels - Electrolytes replacement per ICU protocol ID: Fever/Sepsis - Fever could be central but patient has bilateral infiltrate on chest x-ray - Continue broad-spectrum antibiotics with vancomycin and Zosyn - Follow up on howell culture - Bilateral upper and lower extremity venous Doppler to rule out DVT-left cephalic vein superficial thrombus HEME: - Monitor CBC CMP coags Endo: - Electrolyte replacement per protocol DVT GI prophylaxis - Teds SCDs - Subcutaneous heparin - Pepcid Critical Care: The total critical care time was 35 minutes. Time to perform other separately billable procedures was not included in the critical care time. Palliative care consulted. Prognosis appears very poor with myoclonus, now appears to have progressed to brain . We will get a nuclear medicine brain flow study. Discussed with Dr. Spence 05/04 Discussed with sons about possibility of progression to brain Ulices Ascencio MD May 05, 2017 09:01
[2017-05-05 11:17] LABS: ALBUMIN 1.4 GM/DL (3.4-5.0); ALKALINE PHOSPHATASE 66 U/L (45-117); ALT (GPT) 32 U/L (12-78); AST (GOT) 63 U/L (15-37); BLOOD UREA NITROGEN 17 MG/DL (7-18); CALCIUM 7.8 MG/DL (8.5-10.1); CHLORIDE 119 MEQ/L (98-107); CREATININE 1.21 MG/DL (0.60-1.30); GLOMERULAR FILTRATION RATE 70 ML/MIN (>89); GLUCOSE,RANDOM 235 MG/DL (74-106); SODIUM (NA) 153 MEQ/L (136-145); TOTAL BILIRUBIN ADULT 1.3 MG/DL (0.2-1.0); TOTAL PROTEIN 6.3 GM/DL (6.4-8.2)
[2017-05-05] MEDS ORDERED: PHARMACY ORDERED LAB ONE (14:45)
--- NOTE | 2017-05-05 15:41 | HHI.HCPN ---
Reason for visit a. To assist with evaluation and management of symptoms including:shortness of breath b. To assist medical decision maker(s) with: better understanding of current medical conditions; weighing benefits/burdens of medical treatment options; making medical treatment decisions. Subjective/Interval History Patient seen and examined on CVICU in his room. Remains comatose. Patient currently on 60mcg/min Levophed infusion -in preparation for apnea test. Bedside Jodi reported that prior to that he was on 40mcg/min which is more that he required yesterday to keep MAP>65. Pupils 2mm, unresponsive to light. No spontaneous respirations, FIO2 100% with O2 saturation 100%. TF currently on hold, due to high TF residuals overnight. Patients abdomen distended with intermittent bowel sounds. Last BM was 05/04/17. Patient on D5W at 175 ml/hr. Serum Sodium today= 153. Edema to Right upper extremity. Updated by bedside RN that patient has 2 more adult daughters who were not mention in the initial family meeting. Telephone conversation with patient`s son who confirmed that his father had 3 other daughters before he his late mother. Explained to him that all adult children by law have to serve as healthcare proxys unless if they choose to opt out. Telephone conversation with Belinda Blankenship as well as Hector Cast . Updated them on patient`s current medical status and tests that have already been done. Discussed code status. Both daughters who stated that their father " was not in their life" so they would want to opt out of decision making and defer all decision making to Hector French Jr. Both daughters understand their father`s poor prognosis, they stated that they would prefer proceeding with compassionate withdrawal from life support though they would prefer that such a decision be made by Manolo Oseguera. Encouraged them to speak to their brother and assist him with decision making. Offered to have a family conference with all the children but Gerry prefered to reach out to Manolo Oseguera first. . Family/friend interactions Telephone conversation with patient`s other 2 daughters and Manolo Wong . Advance Directives Living Will: Never completed Health Care Surrogate: Never completed Durable Power of Rn Clinical Resource: Never completed Advance Directive Specifics Health Care Surrogate(s): Health care Proxys Son- Manolo Young Jr- [phone] cell(decision-maker)- Call for any medical decisions Son -Luis Antonio Young -[phone] cell/[phone](home) Daughter-Amy MartinesIawbja-[phone] cell Daughter-Belinda Blankenship [phone] Daughter-Hector Cast [phone] Telephone call to Luis Antonio Young (son) and Amy Martines (daughter) and they both opted out and agreed to defer all medical decision making to their brother Hector French Jr. 05/05/17 Telephone conversations with patients daughters-Belinda Blankenship and Hector Cast who opted out of medical decision making for patient. . Objective Vital Signs Date Time Temp Pulse Resp B/P (MAP) Pulse Ox O2 Delivery O2 Flow Rate FiO2 05/05/17 12:00 100 05/05/17 11:55 95 100 05/05/17 11:18 109 115/81 05/05/17 11:15 97 100 05/05/17 11:00 98.6 108 23 123/75 (91) 96 05/05/17 11:00 98 05/05/17 08:07 92 50 05/05/17 08:00 50 05/05/17 08:00 89 83/59 05/05/17 07:00 98.7 90 18 91/63 (72) 93 05/05/17 07:00 90 91/63 05/05/17 06:38 89 94/68 05/05/17 06:00 83 66/45 05/05/17 05:30 97 88/52 05/05/17 05:16 95 50 05/05/17 04:25 93 45 05/05/17 04:00 45 05/05/17 03:14 98.6 85 18 87/55 (66) 95 05/05/17 03:14 85 05/05/17 03:03 81 87/55 05/05/17 00:21 96 45 05/05/17 00:18 70 81/54 05/05/17 00:08 45 05/04/17 23:24 97.7 64 18 89/65 (73) 94 05/04/17 23:24 65 05/04/17 21:49 65 100/54 05/04/17 20:31 45 05/04/17 19:45 93.5 60 18 128/73 (91) 94 2/12/18 19:19 94 45 05/04/17 19:00 62 05/04/17 16:55 59 120/68 05/04/17 16:00 45 05/04/17 15:36 93 45 Intake & Output 05/05/17 05/05/17 07:00 19:00 Intake Total 2910 ml Output Total 1435.0 ml 300.0 ml Balance 1475.0 ml -300.0 ml IV Total 2435 ml Tube Feeding 75 ml Other 400 ml Output Urine Total 1375 ml Tube Feeding Residual Discard 60.0 ml 300.0 ml # Bowel Movements 0 Physical Exam CONSTITUTIONAL/GENERAL: This is an adequately nourished patient, who is comatose TUBES/LINES/DRAINS: ETT, Parikh catheter, OG tube, SCDs SKIN: No jaundice, rashes, or lesions. Ecchymoses on upper extremities. No wounds seen anteriorly. Skin temperature appropriate. Not diaphoretic. HEAD: Atraumatic. Normocephalic. EYES: Pupils 3mm nonreactive to light. No scleral icterus. No injection or drainage. Fundi not examined. ENT: Hearing-unable to assess patient intubated and sedated. Nose without bleeding or purulent drainage. Moist oral mucosa. NECK: Trachea midline. Supple, nontender. CARDIOVASCULAR:Irregular rhythm without murmurs, gallops, or rubs. No JVD. Peripheral pulses symmetric. RESPIRATORY/CHEST: Symmetric, unlabored respirations. Clear to auscultation. Breath diminished in the bases. No wheezes, rales, or rhonchi. GASTROINTESTINAL: Abdomen distended. Bowel sounds intermittent. TF on hold. GENITOURINARY: Without palpable bladder distension. Parikh catheter in place. MUSCULOSKELETAL: Extremities without clubbing, cyanosis, or edema. No joint tenderness or effusion noted. No calf tenderness. No mottling or clubbing. NEUROLOGICAL: Comatose, Intubated on mechanical ventilation. No pupillary reaction. Not following commands. PSYCHIATRIC: Unable to assess at this time. Diagnostic Tests Laboratory Laboratory Tests Test 05/03/17 02:45 05/03/17 13:15 05/03/17 13:20 05/04/17 03:50 White Blood Count 9.7 TH/MM3 (4.0-11.0) 7.5 TH/MM3 (4.0-11.0) Red Blood Count 5.42 MIL/MM3 (4.50-5.90) 4.73 MIL/MM3 (4.50-5.90) Hemoglobin 17.0 GM/DL (13.0-17.0) 14.8 GM/DL (13.0-17.0) Hematocrit 51.7 % (39.0-51.0) 45.9 % (39.0-51.0) Mean Corpuscular Volume 95.5 FL (80.0-100.0) 97.1 FL (80.0-100.0) Mean Corpuscular Hemoglobin 31.3 PG (27.0-34.0) 31.3 PG (27.0-34.0) Mean Corpuscular Hemoglobin Concent 32.8 % (32.0-36.0) 32.3 % (32.0-36.0) Red Cell Distribution Width 15.7 % (11.6-17.2) 15.8 % (11.6-17.2) Platelet Count 100 TH/MM3 (150-450) 110 TH/MM3 (150-450) Mean Platelet Volume 9.7 FL (7.0-11.0) 9.9 FL (7.0-11.0) Neutrophils (%) (Auto) 80.1 % (16.0-70.0) 78.9 % (16.0-70.0) Lymphocytes (%) (Auto) 6.0 % (9.0-44.0) 10.6 % (9.0-44.0) Monocytes (%) (Auto) 13.6 % (0.0-8.0) 10.0 % (0.0-8.0) Eosinophils (%) (Auto) 0.1 % (0.0-4.0) 0.1 % (0.0-4.0) Basophils (%) (Auto) 0.2 % (0.0-2.0) 0.4 % (0.0-2.0) Neutrophils # (Auto) 7.8 TH/MM3 (1.8-7.7) 5.9 TH/MM3 (1.8-7.7) Lymphocytes # (Auto) 0.6 TH/MM3 (1.0-4.8) 0.8 TH/MM3 (1.0-4.8) Monocytes # (Auto) 1.3 TH/MM3 (0-0.9) 0.8 TH/MM3 (0-0.9) Eosinophils # (Auto) 0.0 TH/MM3 (0-0.4) 0.0 TH/MM3 (0-0.4) Basophils # (Auto) 0.0 TH/MM3 (0-0.2) 0.0 TH/MM3 (0-0.2) CBC Comment DIFF FINAL DIFF FINAL Differential Comment Blood Urea Nitrogen 21 MG/DL (7-18) 20 MG/DL (7-18) 21 MG/DL (7-18) Creatinine 1.09 MG/DL (0.60-1.30) 1.15 MG/DL (0.60-1.30) 1.10 MG/DL (0.60-1.30) Random Glucose 166 MG/DL (74-106) 177 MG/DL (74-106) 244 MG/DL (74-106) Total Protein 6.5 GM/DL (6.4-8.2) 6.1 GM/DL (6.4-8.2) Albumin 1.8 GM/DL (3.4-5.0) 1.6 GM/DL (3.4-5.0) Calcium Level 7.9 MG/DL (8.5-10.1) 7.8 MG/DL (8.5-10.1) 8.0 MG/DL (8.5-10.1) Alkaline Phosphatase 65 U/L (45-117) 54 U/L (45-117) Aspartate Amino Transf (AST/SGOT) 221 U/L (15-37) 127 U/L (15-37) Alanine Aminotransferase (ALT/SGPT) 41 U/L (12-78) 37 U/L (12-78) Total Bilirubin 3.9 MG/DL (0.2-1.0) 2.6 MG/DL (0.2-1.0) Sodium Level 163 MEQ/L (136-145) 165 MEQ/L (136-145) 172 MEQ/L (136-145) Potassium Level 3.8 MEQ/L (3.5-5.1) 3.8 MEQ/L (3.5-5.1) 3.2 MEQ/L (3.5-5.1) Chloride Level 127 MEQ/L (98-107) 127 MEQ/L (98-107) 136 MEQ/L (98-107) Carbon Dioxide Level 31.9 MEQ/L (21.0-32.0) 32.4 MEQ/L (21.0-32.0) 30.1 MEQ/L (21.0-32.0) Anion Gap 4 MEQ/L (5-15) 6 MEQ/L (5-15) 6 MEQ/L (5-15) Estimat Glomerular Filtration Rate 80 ML/MIN (>89) 75 ML/MIN (>89) 79 ML/MIN (>89) Vancomycin Level Trough 9.5 MCG/ML (5.0-10.0) Urine Specific [place] 1.005 (1.002-1.035) Urine Osmolality 109 MOSM/KG (300-1300) Serum Osmolality 351 MOSM/KG (275-295) Test 05/04/17 08:30 05/04/17 16:28 05/04/17 22:37 05/05/17 03:05 Stool C. difficile Toxin (PCR) NEGATIVE (NEGATIVE) Stl C. difficile Toxin Epiderm 027 PRESUMPTIVE NEGATIVE Sodium Level 163 MEQ/L (136-145) 158 MEQ/L (136-145) 157 MEQ/L (136-145) Vancomycin Level Trough 17.1 MCG/ML (5.0-10.0) Potassium Level 2.6 MEQ/L (3.5-5.1) Test 05/05/17 10:00 05/05/17 10:15 05/05/17 11:18 05/05/17 11:34 Blood Gas Puncture Site RT RADIAL RT RADIAL LT RADIAL Blood Gas Patient Temperature 98.6 98.6 98.6 Blood Gas HCO3 27 mmol/L (22-26) 25 mmol/L (22-26) 25 mmol/L (22-26) Blood Gas Base Excess 0.4 mmol/L (-2-2) 0.9 mmol/L (-2-2) 1.1 mmol/L (-2-2) Blood Gas Oxygen Saturation 97 % (90-100) 96 % (90-100) 96 % (90-100) Arterial Blood pH 7.26 (7.380-7.420) 7.44 (7.380-7.420) 7.46 (7.380-7.420) Arterial Blood Partial Pressure CO2 61 mmHg (38-42) 37 mmHg (38-42) 35 mmHg (38-42) Arterial Blood Partial Pressure O2 231 mmHG (61-120) 101 mmHG (61-120) 99 mmHG (61-120) Arterial Blood Oxygen Content 20.3 Vol % (12.0-20.0) 19.7 Vol % (12.0-20.0) 20.0 Vol % (12.0-20.0) Arterial Blood Carboxyhemoglobin 2.4 % (0-4) 2.6 % (0-4) 2.5 % (0-4) Arterial Blood Methemoglobin 0.5 % (0-2) 0.4 % (0-2) 0.5 % (0-2) Blood Gas Hemoglobin 14.5 G/DL (12.0-16.0) 14.5 G/DL (12.0-16.0) 14.8 G/DL (12.0-16.0) Oxygen Delivery Device VENTILATOR VENTILATOR VENTILATOR Blood Gas Ventilator Setting AC10/550/PEEP5 26/700/PEEP5 26/700/PEEP5 Blood Gas Inspired Oxygen 100 % 100 % 100 % Blood Urea Nitrogen 17 MG/DL (7-18) Creatinine 1.21 MG/DL (0.60-1.30) Random Glucose 235 MG/DL (74-106) Total Protein 6.3 GM/DL (6.4-8.2) Albumin 1.4 GM/DL (3.4-5.0) Calcium Level 7.8 MG/DL (8.5-10.1) Alkaline Phosphatase 66 U/L (45-117) Aspartate Amino Transf (AST/SGOT) 63 U/L (15-37) Alanine Aminotransferase (ALT/SGPT) 32 U/L (12-78) Total Bilirubin 1.3 MG/DL (0.2-1.0) Sodium Level 153 MEQ/L (136-145) Potassium Level 3.9 MEQ/L (3.5-5.1) Chloride Level 119 MEQ/L (98-107) Carbon Dioxide Level 28.0 MEQ/L (21.0-32.0) Anion Gap 6 MEQ/L (5-15) Estimat Glomerular Filtration Rate 70 ML/MIN (>89) Test 05/05/17 12:55 05/05/17 14:10 Blood Gas Puncture Site LT RADIAL LT RADIAL Blood Gas Patient Temperature 98.6 98.6 Blood Gas HCO3 25 mmol/L (22-26) 28 mmol/L (22-26) Blood Gas Base Excess 0.9 mmol/L (-2-2) 1.2 mmol/L (-2-2) Blood Gas Oxygen Saturation 98 % (90-100) 84 % (90-100) Arterial Blood pH 7.43 (7.380-7.420) 7.23 (7.380-7.420) Arterial Blood Partial Pressure CO2 38 mmHg (38-42) 69 mmHg (38-42) Arterial Blood Partial Pressure O2 321 mmHG (61-120) 58 mmHG (61-120) Arterial Blood Oxygen Content 21.3 Vol % (12.0-20.0) 17.9 Vol % (12.0-20.0) Arterial Blood Carboxyhemoglobin 2.1 % (0-4) 1.6 % (0-4) Arterial Blood Methemoglobin 0.5 % (0-2) 0.5 % (0-2) Blood Gas Hemoglobin 15.0 G/DL (12.0-16.0) 15.2 G/DL (12.0-16.0) Oxygen Delivery Device VENTILATOR ETT Blood Gas Ventilator Setting 22/700/PEEP12 Blood Gas Inspired Oxygen 100 % 100 % Blood Gas Liter Flow 15 L/M Result Diagram: 05/04/17 0350 05/05/17 1015 Procedures 05/01/2017-intubation 05/01/2017-left IJ central line placement . Assessment and Plan Disease Oriented Problem List: (1) Cardiac arrest (2) Respiratory failure (3) Encephalopathy (4) Acute kidney injury (5) Lactic acidosis Symptom Scale: (1) Shortness of breath 0-10 Scale: Unable to quantify Comment: s/p Cardiac arrest. Chest Xray 05/03/17 revealed bilateral mostly basilar airspace disease. . Pertinent Non-Medical Issues Psychosocial:Patient was born and raised in [place]. He is . He has 6 adult children, three daughters and 2 sons. Patient did not serve in the . 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 Spiritual: Scientologist Legal: Patient does not have any advanced directives Ethical issues impacting care: None identified at this time . Important Contacts Son- Manloo Young Jr- [phone] cell(decision-maker)Call for any medical decisions Son -Luis Antonio Young -[phone] cell/[phone](home) Daughter-Amy MartinesDfiqxo-[phone] cell Daughter-Belinda Blankenship [phone] Daughter-Hector Cast [phone] Telephone call to Luis Antonio Yougn (son) and Amy Martines (daughter) and they both agreed to defer all medical decision making to their brother Hector French Jr. 05/05/17 Telephone conversations with patients daughters-Belinda Blankenship and Hector Cast who opted out of medical decision making for patient. . Prognosis Mr. Valencia is a 77 years old with a past medical history of prostate cancer, and hypertension. Patient was brought in by EMS after a cardiac arrest. Per EMS report, patient had return of spontaneous circulation 15-20minutes after they had administered 3 amps epinephrine and 1 amp bicarb. Due to prolonged return of spontaneous circulation, and diffusely abnormal brain with edema and loss of montero-white differentiation presumably a global hypoxic event on CT head on arrival, patient is at risk for further complications, deterioration and decline. . Code Status: Full Code Plan PLAN: Legal decision maker: Patient is currently intubated, sedated on mechanical ventilation and unable to participate in medical decision making. It is not known if patient will be able to regain capacity at this time. Patient son Hector French Jr will serve as his health care proxy. Goals: Aggressive Updated by bedside RN that patient has 2 more adult daughters who were not mention in the initial family meeting. Telephone conversation with patient`s son who confirmed that his father had 3 other daughters before he his late mother. Explained to him that all adult children by law have to serve as healthcare proxys unless if they choose to opt out. Telephone conversation with Belinda Blankenship as well as Hector Cast . Updated them on patient`s current medical status and tests that have already been done. Discussed code status. Both daughters who stated that their father " was not in their life" so they would want to opt out of decision making and defer all decision making to Hector French Jr. Both daughters understand their father`s poor prognosis, they stated that they would prefer proceeding with compassionate withdrawal from life support though they would prefer that such a decision be made by Manolo Oseguera. Encouraged them to speak to their brother and assist him with decision making. Offered to have a family conference with all the children but Gerry prefered to reach out to Manolo Oseguera first. CODE STATUS: Full Code SYMPTOMS: * Shortness of breath: Patient suffered a cardiac arrest. Chest x-ray 05/01 revealed improvement of pulmonary vascular congestion bilaterally and right basilar patient is consistent with possible pneumonia. Currently intubated and on mechanical ventilation. FiO2 45% with O2 saturation in the mid and low 90s. Palliative care will continue to follow the patient during hospital course as condition evolves, to assist patient/decision-maker with understanding of their medical conditions, weighing benefits/burdens of treatment options, for clarification of goals of treatment. Additionally will assist with any symptoms of palliative concern. Attestation To help prompt me to consider important information that might be impacting today's encounter and assessment, information from prior notes written by myself or my colleagues may have been "brought forward" into today's note. My signature on this note, however, is an attestation that I personally performed the exam, history, and/or decision-making noted today, and, unless otherwise indicated, the interactions with patient, family, and staff as well as the review of records all occurred today. I also attest that the listed assessment and stated plan reflect my best clinical judgment today based on the combination of historical information, prior notes, and today's exam/ interactions. When time spent is documented, it refers only to time spent today by the signer, or if indicated, combined time spent today by collaborating physician/nurse practitioner. Norberto Villarreal May 05, 2017 15:40
--- NOTE | 2017-05-05 15:51 | MG ---
cc: ZAC KO Lab No: Date: 05/05/2017 Age: Sex: M Race: TEST NUMBER [id number] TECHNIQUE A 17 channel EEG. DESCRIPTION The background rhythm is abnormal. There is only negligible electric cortical activity. Photic stimulation does not elicit any type of driving response. INTERPRETATION Abnormal study which is most consistent with electrocerebral silence. MD JOI Roman/SNOW /3:05 PM /3:33 PM
[2017-05-06] VITALS (10 sets, daily range): BP systolic 87–106; BP diastolic 64–72; PULSE 85–105; RESP 18; TEMP 97.9–98.1; O2SAT 96–100
[2017-05-06] MEDS: NOREPINEPHRINE 16 MG/D5W 250 ML IV PRN ×2 (02:00)
[2017-05-06] MEDS: CHLORHEXIDINE GLUCONATE 2 % 1 PACK (2 CLOTHS) TOP SCH (03:47)
[2017-05-06] MEDS: DEXTROSE 5% IN WATE 1000ML INJ 1,000 ML IV SCH ×2 (03:48→09:55)
[2017-05-06] MEDS: PIPERACIL-TAZO 4.5 GM PREMIX 100 ML IV SCH ×2 (04:14→09:52)
[2017-05-06 04:30] LABS: AUTOMATED NEUTROPHIL # 8.1 TH/MM3 (1.8-7.7); BASOPHIL % 0.3 % (0.0-2.0); EOSINOPHIL # 0.2 TH/MM3 (0-0.4); EOSINOPHIL % 1.8 % (0.0-4.0); HEMOGLOBIN 13.7 GM/DL (13.0-17.0); LYMPH % 8.6 % (9.0-44.0); LYMPHOCYTE # 0.9 TH/MM3 (1.0-4.8); MEAN CELL VOLUME 95.5 FL (80.0-100.0); MEAN CORPUSCULAR HEMOGLOBIN 30.5 PG (27.0-34.0); MEAN PLATELET VOLUME 10.2 FL (7.0-11.0); MONO % 8.5 % (0.0-8.0); MONOCYTE # 0.9 TH/MM3 (0-0.9); NEUT % 80.8 % (16.0-70.0); PLATELET COUNT 89 TH/MM3 (150-450); RED CELL DISTRIBUTION WIDTH 15.8 % (11.6-17.2); WHITE BLOOD COUNT 10.1 TH/MM3 (4.0-11.0)
--- NOTE | 2017-05-06 04:37 | RADRPT ---
EXAM DATE/TIME: 05/06/2017 03:48 [facility] COMPARISON: CHEST SINGLE AP, May 04, 2017, 4:31. INDICATIONS : Short of breath. MEDICAL HISTORY : Hypertension. Rheumatoid arthritis. Smoker. SURGICAL HISTORY : None. ENCOUNTER: Subsequent ACUITY: 1 week PAIN SCORE: 0/10 LOCATION: Bilateral chest FINDINGS: Bilateral effusions and lower lobe consolidation again seen. Cardiomegaly, left jugular line and ente david tube and NG tube are in the tracheal tube again noted. Degenerative changes of the spine. CONCLUSION: No significant change has occurred. Russ Lang MD on May 06, 2017 at 4:34 Board Certified Radiologist. This report was verified electronically.
[2017-05-06 04:50] LABS: CREATININE 1.47 MG/DL (0.60-1.30)
[2017-05-06] MEDS: FREE WATER OG-TUBE SCH ×2 (06:00)
[2017-05-06] MEDS: HEPARIN SODIUM - SQ 10,000 UNITS/ML VIAL SQ SCH (06:00)
[2017-05-06 06:05] LABS: ALBUMIN 1.3 GM/DL (3.4-5.0); ALKALINE PHOSPHATASE 97 U/L (45-117); ALT (GPT) 30 U/L (12-78); AST (GOT) 53 U/L (15-37); BICARBONATE 23.6 MEQ/L (21.0-32.0); BLOOD UREA NITROGEN 19 MG/DL (7-18); CALCIUM 7.8 MG/DL (8.5-10.1); CHLORIDE 108 MEQ/L (98-107); CREATININE 1.49 MG/DL (0.60-1.30); GLOMERULAR FILTRATION RATE 55 ML/MIN (>89); GLUCOSE,RANDOM 311 MG/DL (74-106); MAGNESIUM 1.5 MG/DL (1.5-2.5); SODIUM (NA) 141 MEQ/L (136-145); TOTAL BILIRUBIN ADULT 1.4 MG/DL (0.2-1.0)
--- NOTE | 2017-05-06 07:11 | HHI.PR ---
Subjective Remarks no change follow up visit. Objective Vital Signs Date Time Temp Pulse Resp B/P (MAP) Pulse Ox O2 Delivery O2 Flow Rate FiO2 05/06/17 04:20 96 50 05/06/17 04:16 50 05/06/17 03:46 105 05/06/17 03:07 98.1 85 18 87/64 (72) 97 05/06/17 02:00 91/67 05/06/17 00:18 50 05/05/17 23:20 98.2 90 18 91/68 (76) 95 05/05/17 23:00 91 05/05/17 22:21 95 50 05/05/17 20:00 50 05/05/17 19:45 94 50 05/05/17 19:30 98.7 100 18 92/65 (74) 95 05/05/17 19:00 101 05/05/17 17:21 103 81/52 05/05/17 17:00 106 81/52 05/05/17 16:00 60 05/05/17 16:00 103 96/50 05/05/17 15:28 96 80 05/05/17 15:00 98.8 105 18 92/74 (80) 96 05/05/17 15:00 105 92/74 05/05/17 15:00 100 05/05/17 14:00 94 110/63 05/05/17 13:00 114 109/86 05/05/17 12:00 100 05/05/17 12:00 109 105/73 05/05/17 11:55 95 100 05/05/17 11:18 109 115/81 05/05/17 11:15 97 100 05/05/17 11:00 98.6 108 23 123/75 (91) 96 05/05/17 11:00 98 05/05/17 08:07 92 50 05/05/17 08:00 50 05/05/17 08:00 89 83/59 I/O 05/05/17 05/05/17 05/05/17 05/06/17 05/06/17 05/06/17 07:00 15:00 23:00 07:00 15:00 23:00 Intake Total 2810 ml 109 ml 1771 ml 3489 ml Output Total 1375 ml 300.0 ml 1500.0 ml 900 ml Balance 1435 ml -191.0 ml 271.0 ml 2589 ml IV Total 2335 ml 109 ml 1729 ml 3489 ml Tube Feeding 75 ml 42 ml Other 400 ml Output Urine Total 1375 ml 1000 ml 650 ml Gastric Drainage Total 300 ml 250 ml Tube Feeding Residual Discard 300.0 ml 200.0 ml # Bowel Movements 0 0 Result Diagram: 05/06/17 0348 05/06/17 0348 Imaging mri c/w herniation and global anoxia Other Results eeg -c/w ECS initial blood flow did have small amount of flow per report. blood flow today pending. apnea test could not be completed. Objective Remarks intubated/vent no sedation pupils 2mm nonreative does not overbreathe the vent set at 18 remains at 18 ocr neg. no cough or gag no corneals no spontaneous movement no withdrawl to pain flaccid tone does not open eyes does not follow any commands dtrs absent toes no movement to Babinski-silent. Assessment and Plan Assessment and Plan anoxic encephalopathy clinically pt looks brain -neuro exam and eeg blood flow today no chance for neurological recovery Lissa Spence MD May 06, 2017 07:11
[2017-05-06] MEDS: INSULIN ASPART SUPPLEMENTAL SCALE SQ SCH (08:22)
--- NOTE | 2017-05-06 08:35 | HHI.CCPN ---
Subjective Remarks/Hospital Course 77-year-old male admitted status post cardiac arrest. Per EMS report they gave him 3 epinephrine and a dose of bicarb with return of spontaneous circulation after approximately 15-20 minutes. Family states that they were with him, he seemed to perhaps be a little short of breath, but was not complaining of anything. One son left and 30 minutes later another son arrived and found him slumped in the chair. Family states he has a history of high blood pressure and prostate cancer, no heart problems that they know of. In the emergency department patient is intubated, unresponsive, with myoclonic jerks in all 4 extremities. SUBJ 05/01: Appears to have sustained severe anoxic brain injury. According given due to muscle artifact during EEG. Diffuse encephalopathy, no seizure. Spiking fever up to 104.7. Howell cultures sent start vancomycin and Zosyn. Palliative care consult pending 05/02: Clinically unresponsive. On Versed 3 mg/h for myoclonus. EEG showed moderate to severe encephalopathy no seizures. Family wants to continue full aggressive care. I will consult neurology to assist with prognostication as the patient seems to have sustained severe anoxic injury. FiO2 remains high at 100%. Continue to spike fever currently on [place] Zosyn. 05/03: Remains intubated critical, off all sedation and no response to painful stimuli. Has spontaneous breathing above the ventilator set rate. Urine output more than 6 L in the last 24 hours, sodium has risen to 163 concerning for at least partial DI. Serum osmolality, urine osmolality and urine specific gravity ordered. Will bolus half-normal saline 1 L and change fluid to D5 W at 175 mL/h 05/04: Appears to be in severe DI. Sodium has climbed to 172. Getting D5W and free water flushes. Started on DDAVP 2 mcg every 12. Clinical exam concerning for brain -see neruo exam. Brain flow study ordered. 05/05: Patient continues to show clinical evidence of brain, but brain flow study yesterday showed minimal flow in the sagittal sinus according to Dr. Ignacio Chirinos. I will proceed with apnea testing today as the patient had been off sedation for approximately 72 hours. Repeat brain flow testing in 24 hours if apnea test positive for brain . Na improved to 157 05/06: EEG 05/05 consistent with electrocerebral silence. Clinical exam again confirms brain . Apnea test had to be terminated at 7 minutes yesterday due to severe hypoxia. But no spontaneous breathing noted. Will repeat cerebral flow study today to confirm brain . Dr. Spence agrees that patient is clinically brain Objective Vital Signs Date Time Temp Pulse Resp B/P (MAP) Pulse Ox O2 Delivery O2 Flow Rate FiO2 05/06/17 08:09 97 50 05/06/17 07:57 97.9 93 18 101/67 (78) Intake and Output 05/06/17 05/06/17 05/07/17 08:00 16:00 00:00 Intake Total 3389 ml Output Total 1100.0 ml Balance 2289.0 ml Result Diagram: 05/06/17 0348 05/06/17 0348 Other Results Laboratory Tests Test 05/05/17 10:00 05/05/17 11:18 05/05/17 11:34 05/05/17 12:55 Blood Gas Puncture Site RT RADIAL RT RADIAL LT RADIAL LT RADIAL Blood Gas Patient Temperature 98.6 98.6 98.6 98.6 Blood Gas HCO3 27 mmol/L (22-26) 25 mmol/L (22-26) 25 mmol/L (22-26) 25 mmol/L (22-26) Blood Gas Base Excess 0.4 mmol/L (-2-2) 0.9 mmol/L (-2-2) 1.1 mmol/L (-2-2) 0.9 mmol/L (-2-2) Blood Gas Oxygen Saturation 97 % (90-100) 96 % (90-100) 96 % (90-100) 98 % ( 90-100) Arterial Blood pH 7.26 (7.380-7.420) 7.44 (7.380-7.420) 7.46 (7.380-7.420) 7.43 (7.380-7.420) Arterial Blood Partial Pressure CO2 61 mmHg (38-42) 37 mmHg (38-42) 35 mmHg (38-42) 38 mmHg (38-42) Arterial Blood Partial Pressure O2 231 mmHG (61-120) 101 mmHG (61-120) 99 mmHG (61-120) 321 mmHG (61-120) Arterial Blood Oxygen Content 20.3 Vol % (12.0-20.0) 19.7 Vol % (12.0-20.0) 20.0 Vol % (12.0-20.0) 21.3 Vol % (12.0-20.0) Arterial Blood Carboxyhemoglobin 2.4 % (0-4) 2.6 % (0-4) 2.5 % (0-4) 2.1 % (0-4) Arterial Blood Methemoglobin 0.5 % (0-2) 0.4 % (0-2) 0.5 % (0-2) 0.5 % (0-2) Blood Gas Hemoglobin 14.5 G/DL (12.0-16.0) 14.5 G/DL (12.0-16.0) 14.8 G/DL (12.0-16.0) 15.0 G/DL (12.0-16.0) Oxygen Delivery Device VENTILATOR VENTILATOR VENTILATOR VENTILATOR Blood Gas Ventilator Setting AC10/550/PEEP5 26/700/PEEP5 26/700/PEEP5 22/700/ PEEP12 Blood Gas Inspired Oxygen 100 % 100 % 100 % 100 % Test 05/05/17 14:10 Blood Gas Puncture Site LT RADIAL Blood Gas Patient Temperature 98.6 Blood Gas HCO3 28 mmol/L (22-26) Blood Gas Base Excess 1.2 mmol/L (-2-2) Blood Gas Oxygen Saturation 84 % (90-100) Arterial Blood pH 7.23 (7.380-7.420) Arterial Blood Partial Pressure CO2 69 mmHg (38-42) Arterial Blood Partial Pressure O2 58 mmHG (61-120) Arterial Blood Oxygen Content 17.9 Vol % (12.0-20.0) Arterial Blood Carboxyhemoglobin 1.6 % (0-4) Arterial Blood Methemoglobin 0.5 % (0-2) Blood Gas Hemoglobin 15.2 G/DL (12.0-16.0) Oxygen Delivery Device ETT Blood Gas Liter Flow 15 L/M Blood Gas Inspired Oxygen 100 % Imaging Last [address] 04/30/171746 Signed Impressions: Service Date/Time: April 19:29 - CONCLUSION: Diffusely abnormal brain with edema and loss of montero-white differentiation, presumably a global hypoxic event. No bleed or focal abnormality demonstrated. Sonu Wesley MD Chest X-Ray 04/30/177 Signed Impressions: Service Date/Time: April 18:00 - CONCLUSION: Right greater the left basilar consolidation. There is considerable right-sided volume loss. Endotracheal tube and left IJ line appropriate positions as above. Sonu Wesley MD Objective Remarks GENERAL: Comatose elderly -[place] male SKIN: Warm and dry. HEAD: Normocephalic. EYES: Pupils 4 mm unresponsive, fixed no corneal reflex NECK: Supple, trachea midline. No JVD or lymphadenopathy. CARDIOVASCULAR: Regular rate and rhythm without murmurs, gallops, or rubs. On Levophed to maintain map above 65 RESPIRATORY: Breath sounds equal bilaterally. Diminished at the bases with coarse crackles. No spontaneous breathing GASTROINTESTINAL: Abdomen soft, non-tender, nondistended. MUSCULOSKELETAL: No cyanosis, or edema. NEURO: GCS: 3T. No spontaneous breathing, no withdrawal to pain, no corneal no pupillary reflex no cough no gag, no doll's eye, no oculovestibular reflex. No DTR Clinical exam supportive of brain that A/P Assessment and Plan Neuro: Clinical exam and EEG consistent with brain DI - Clinical exam consistent for brain (no spontaneous breathing, no withdrawal to pain, no corneal no pupillary reflex no cough no gag, no doll's eye, no oculovestibular reflex) - Apnea test for 7 min on 05/05 showed no spontaneous breathing - EEG 05/05 consistent with electrocerebral silence - MRIs show severe anoxic injury and tonsillar herniation. - Nuclear medicine brain flow 05/04 showed minimal flow in sagittal sinus, repeat brain flow today - Palliative care following - Diffuse anoxic changes on the CT brain, No indication for hypothermia protocol due to already severely damaged [employer] - Continue Keppra for myoclonus - Neurology Dr. Rodriguez-agrees with the clinical assessment consistent with brain - Continue DDAVP and free water replacement Resp: Acute hypoxemic respiratory failure Aspiration pneumonitis - Continue mechanical ventilation - Intubated for an airway protection, hypoxemic - Continue PRVC, PEEP to 10, wean FiO2 keeping oxygen saturation above 90% - No weaning due to neuro exam consistent with brain - Vent bundle, DuoNeb's when necessary - Venous Doppler bilateral upper and lower extremities showed superficial thrombus of cephalic vein CVS: Cardiac arrest Shock probably cardiogenic - Status post prolonged CPR - Likely prolonged downtime prior the CPR - Diffuse anoxic changes on the CT brain, MRI - There was no indication for hypothermia protocol due to already severely damaged [employer] - 2D echo. Mild troponin elevation most likely from CPR - Lactic acidosis improved with aggressive resuscitation - Levophed 20 mcg/min to keep map above 65 GI - Tube feeds with Jevity, Protonix for GI prophylaxis - Bowel regimen : Acute kidney injury DI - continue DDAVP and free water replacement - Unknown baseline levels of creat - IV fluids resuscitation - Monitor I's and O's, Monitor creatinine levels - Electrolytes replacement per ICU protocol ID: Fever/Sepsis - Fever could be central but patient has bilateral infiltrate on chest x-ray - Continue broad-spectrum antibiotics with vancomycin and Zosyn - Follow up on howell culture - Bilateral upper and lower extremity venous Doppler to rule out DVT-left cephalic vein superficial thrombus HEME: - Monitor CBC CMP coags Endo: - Electrolyte replacement per protocol DVT GI prophylaxis - Teds SCDs - Subcutaneous heparin - Pepcid Critical Care: The total critical care time was 35 minutes. Time to perform other separately billable procedures was not included in the critical care time. Palliative care consulted. Prognosis appears very poor with myoclonus, now appears to have progressed to brain . We will get a nuclear medicine brain flow study. Discussed with Dr. Spence 05/04 Discussed with sons about possibility of progression to brain 05/06: Clinical exam consistent with brain by my exam and Dr. Spence. EEG consistent with electrocerebral silence, repeat brain flow study today to confirm brain Ulices Ascencio MD May 06, 2017 08:35
[2017-05-06] MEDS ORDERED: ATROPINE SULFATE 1 MG/10 ML SYRINGE ONE (08:37)
[2017-05-06] MEDS ORDERED: EPINEPHrine HCL (1:10,000) 1 MG/10 ML SYRINGE ONE (08:37)
[2017-05-06] MEDS: SODIUM CHLORIDE 0.9% FLUSH 10 ML FLUSH IV FLUSH SCH (09:00)
--- NOTE | 2017-05-06 09:32 | RADRPT ---
EXAM DATE/TIME: 05/06/2017 08:26 [facility] COMPARISON: BRAIN IMAGE WITH FLOW, May 04, 2017, 12:28. INDICATIONS : Post cardiac arrest. Anoxic brain injury. DOSE: 25.2 mCi Tc99m DTPA IV The diagnosis of brain is clinical and the results of this test should be taken in the content of clinical and electrocephalographic data. MEDICAL HISTORY : Hypertension. Carcinoma, prostate. SURGICAL HISTORY : Unknown. ENCOUNTER: Subsequent ACUITY: 2 days PAIN SCALE: 2/10 LOCATION: Head. TECHNIQUE: Anterior dynamic imaging as well as delayed static imaging. FINDINGS: No intracranial blood flow CONCLUSION: No intracranial blood flow. Italo Chirinos MD FACR on May 06, 2017 at 9:29 Board Certified Radiologist. This report was verified electronically.
[2017-05-06] MEDS: DOCUSATE SODIUM 50 MG/SENNA 8.6 MG TAB PO SCH (09:53)
[2017-05-06] MEDS: levETIRAcetam INJ 100 ML IV SCH (09:53)
[2017-05-06] MEDS: ARTIFICIAL TEARS OPTH SOLN 15 ML BTL EACH EYE SCH (09:53)
[2017-05-06] MEDS: DESMOPRESSIN ACETATE 4 MCG/ML VIAL SQ SCH (09:54)
[2017-05-06] MEDS: FAMOTIDINE 20 MG/2 ML VIAL IV PUSH SCH (09:54)
[2017-05-06] MEDS ORDERED: PHARMACY ORDERED LAB ONE (10:00)
--- NOTE | 2017-05-06 13:24 | DEATH SUM ---
Summary Demographics Date Pronounced : May 06, 2017 Time Of : 13:20 Pronounced By: Dr. Ascencio Preliminary Cause of : Brain Ulices Ascencio MD May 06, 2017 13:24
--- NOTE | 2017-05-06 13:26 | HHI.DS ---
Summary Note Date of : May 06, 2017 Time Of : 13:20 Admission Date Apr 30, 2017 at 19:33 Admitting Diagnosis Cardiac arrest, ARDS Diagnosis at Time of : (1) Brain ICD Code: G93.82 - Brain Diagnosis: Principal (2) Cardiac arrest ICD Code: I46.9 - Cardiac arrest, cause unspecified Diagnosis: Principal (3) Acute hypoxemic respiratory failure ICD Code: J96.01 - Acute respiratory failure with hypoxia Diagnosis: Principal (4) Cardiogenic shock ICD Code: R57.0 - Cardiogenic shock Diagnosis: Principal (5) Rhabdomyolysis ICD Code: M62.82 - Rhabdomyolysis Diagnosis: Principal (6) Lactic acidosis ICD Code: E87.2 - Acidosis Diagnosis: Principal (7) Encephalopathy ICD Code: G93.40 - Encephalopathy, unspecified Diagnosis: Principal (8) Acute kidney injury ICD Code: N17.9 - Acute kidney failure, unspecified Diagnosis: Principal Brief History 77-year-old male admitted status post cardiac arrest. Per EMS report they gave him 3 epinephrine and a dose of bicarb with return of spontaneous circulation after approximately 15-20 minutes. Family states that they were with him, he seemed to perhaps be a little short of breath, but was not complaining of anything. One son left and 30 minutes later another son arrived and found him slumped in the chair. Family states he has a history of high blood pressure and prostate cancer, no heart problems that they know of. In the emergency department patient is intubated, unresponsive, with myoclonic jerks in all 4 extremities. CBC/BMP: 05/06/17 0348 05/06/17 1020 Significant Findings Laboratory Tests Test 05/04/17 03:50 05/04/17 08:30 05/04/17 16:28 05/04/17 22:37 Platelet Count 110 TH/MM3 (150-450) Neutrophils (%) (Auto) 78.9 % (16.0-70.0) Monocytes (%) (Auto) 10.0 % (0.0-8.0) Lymphocytes # (Auto) 0.8 TH/MM3 (1.0-4.8) Blood Urea Nitrogen 21 MG/DL (7-18) Random Glucose 244 MG/DL (74-106) Total Protein 6.1 GM/DL (6.4-8.2) Albumin 1.6 GM/DL (3.4-5.0) Calcium Level 8.0 MG/DL (8.5-10.1) Aspartate Amino Transf (AST/SGOT) 127 U/L (15-37) Total Bilirubin 2.6 MG/DL (0.2-1.0) Sodium Level 172 MEQ/L (136-145) 163 MEQ/L (136-145) 158 MEQ/L (136-145) Potassium Level 3.2 MEQ/L (3.5-5.1) 2.6 MEQ/L (3.5-5.1) Chloride Level 136 MEQ/L (98-107) Estimat Glomerular Filtration Rate 79 ML/MIN (>89) Vancomycin Level Trough 17.1 MCG/ML (5.0-10.0) Test 05/05/17 03:05 05/05/17 10:00 05/05/17 10:15 05/05/17 11:18 Sodium Level 157 MEQ/L (136-145) 153 MEQ/L (136-145) Blood Gas HCO3 27 mmol/L (22-26) Arterial Blood pH 7.26 (7.380-7.420) 7.44 (7.380-7.420) Arterial Blood Partial Pressure CO2 61 mmHg (38-42) 37 mmHg (38-42) Arterial Blood Partial Pressure O2 231 mmHG (61-120) Arterial Blood Oxygen Content 20.3 Vol % (12.0-20.0) Random Glucose 235 MG/DL (74-106) Total Protein 6.3 GM/DL (6.4-8.2) Albumin 1.4 GM/DL (3.4-5.0) Calcium Level 7.8 MG/DL (8.5-10.1) Aspartate Amino Transf (AST/SGOT) 63 U/L (15-37) Total Bilirubin 1.3 MG/DL (0.2-1.0) Chloride Level 119 MEQ/L (98-107) Estimat Glomerular Filtration Rate 70 ML/MIN (>89) Test 05/05/17 11:34 05/05/17 12:55 05/05/17 14:10 05/05/17 17:00 Arterial Blood pH 7.46 (7.380-7.420) 7.43 (7.380-7.420) 7.23 (7.380-7.420) Arterial Blood Partial Pressure CO2 35 mmHg (38-42) 69 mmHg (38-42) Arterial Blood Partial Pressure O2 321 mmHG (61-120) 58 mmHG (61-120) Arterial Blood Oxygen Content 21.3 Vol % (12.0-20.0) Blood Gas HCO3 28 mmol/L (22-26) Blood Gas Oxygen Saturation 84 % (90-100) Sodium Level 147 MEQ/L (136-145) Vancomycin Level Trough 26.2 MCG/ML (5.0-10.0) Test 05/05/17 22:25 05/06/17 03:48 05/06/17 10:20 Platelet Count 89 TH/MM3 (150-450) Neutrophils (%) (Auto) 80.8 % (16.0-70.0) Lymphocytes (%) (Auto) 8.6 % (9.0-44.0) Monocytes (%) (Auto) 8.5 % (0.0-8.0) Neutrophils # (Auto) 8.1 TH/MM3 (1.8-7.7) Lymphocytes # (Auto) 0.9 TH/MM3 (1.0-4.8) Platelet Estimate LOW (NORMAL) Blood Urea Nitrogen 19 MG/DL (7-18) Creatinine 1.49 MG/DL (0.60-1.30) Random Glucose 311 MG/DL (74-106) Total Protein 6.0 GM/DL (6.4-8.2) Albumin 1.3 GM/DL (3.4-5.0) Calcium Level 7.8 MG/DL (8.5-10.1) Aspartate Amino Transf (AST/SGOT) 53 U/L (15-37) Total Bilirubin 1.4 MG/DL (0.2-1.0) Chloride Level 108 MEQ/L (98-107) Estimat Glomerular Filtration Rate 56 ML/MIN (>89) Vancomycin Level Trough 23.8 MCG/ML (5.0-10.0) Imaging Last [address] 04/30/171746 Signed Impressions: Service Date/Time: April 19:29 - CONCLUSION: Diffusely abnormal brain with edema and loss of montero-white differentiation, presumably a global hypoxic event. No bleed or focal abnormality demonstrated. Sonu Wesley MD Chest X-Ray 04/30/171746 Signed Impressions: Service Date/Time: April 18:00 - CONCLUSION: Right greater the left basilar consolidation. There is considerable right-sided volume loss. Endotracheal tube and left IJ line appropriate positions as above. Sonu Wesley MD 03/05: Brain flow confirms brain by showing no flow 03/04 EEG consistent with ECS 03/02 MRI severe anoxic injury with herniation Hospital Course 77-year-old male admitted status post cardiac arrest. Per EMS report they gave him 3 epinephrine and a dose of bicarb with return of spontaneous circulation after approximately 15-20 minutes. Family states that they were with him, he seemed to perhaps be a little short of breath, but was not complaining of anything. One son left and 30 minutes later another son arrived and found him slumped in the chair. Family states he has a history of high blood pressure and prostate cancer, no heart problems that they know of. In the emergency department patient is intubated, unresponsive, with myoclonic jerks in all 4 extremities. SUBJ 05/01: Appears to have sustained severe anoxic brain injury. According given due to muscle artifact during EEG. Diffuse encephalopathy, no seizure. Spiking fever up to 104.7. Foster cultures sent start vancomycin and Zosyn. Palliative care consult pending 05/02: Clinically unresponsive. On Versed 3 mg/h for myoclonus. EEG showed moderate to severe encephalopathy no seizures. Family wants to continue full aggressive care. I will consult neurology to assist with prognostication as the patient seems to have sustained severe anoxic injury. FiO2 remains high at 100%. Continue to spike fever currently on [place] Zosyn. 05/03: Remains intubated critical, off all sedation and no response to painful stimuli. Has spontaneous breathing above the ventilator set rate. Urine output more than 6 L in the last 24 hours, sodium has risen to 163 concerning for at least partial DI. Serum osmolality, urine osmolality and urine specific gravity ordered. Will bolus half-normal saline 1 L and change fluid to D5 W at 175 mL/h 05/04: Appears to be in severe DI. Sodium has climbed to 172. Getting D5W and free water flushes. Started on DDAVP 2 mcg every 12. Clinical exam concerning for brain -see neruo exam. Brain flow study ordered. 05/05: Patient continues to show clinical evidence of brain, but brain flow study yesterday showed minimal flow in the sagittal sinus according to Dr. Ignacio Chirinos. I will proceed with apnea testing today as the patient had been off sedation for approximately 72 hours. Repeat brain flow testing in 24 hours if apnea test positive for brain . Na improved to 157 05/06: EEG 05/05 consistent with electrocerebral silence. Clinical exam again confirms brain . Apnea test had to be terminated at 7 minutes yesterday due to severe hypoxia. But no spontaneous breathing noted. Will repeat cerebral flow study today to confirm brain . Dr. Spence agrees that patient is clinically brain . Flow study confirmed brain at 0930. Brain certification completed and time of 1320, on 05/06/17 Ulices Ascencio MD May 06, 2017 13:26
--- NOTE | 2017-05-06 14:39 | HHI.HCPN ---
Reason for visit a. To assist with evaluation and management of symptoms including:shortness of breath b. To assist medical decision maker(s) with: better understanding of current medical conditions; weighing benefits/burdens of medical treatment options; making medical treatment decisions. Subjective/Interval History Patient seen on CVICU. Remains intubated on mechanical ventilation. Brain flow study reveals no intracranial blood flow. EEG ON 05/05/17 showed consistency with electrocerebral silence. Patient failed Apnea test yesterday, he had no spontaneous breath and test had to be terminated at 7 minutes due to severe hypoxia. Clinical exam performed at bedside by Dr. Ascencio and Dr. Spence confirming brain . Met with patient`s son Manolo Oseguera and son Luis Antonio on [facility] after telephone conversation informing him that patient`s brain flow study revealed no intracranial blood flow. Manolo Oseguera (son) is informing other family members and stated that he will be back at 1500hrs today and hopes that by 1800hrs family will be ready to have patient extubated. Offered patient`s son drier tender services and he agreed. Bedside RN requested to notify fire captain marine. Met with family, patient`s son Luis Antonio French and sister Belinda with other family members at bedside. Equipment Operator Carlos at bedside supporting family with a prayer. Patient`s son requested that patient be extubated at 1800hrs. . Family/friend interactions Telephone conversation to patient`s daughter Krzysztof Trevino - notified her of results of brain flow study. Met with patient`s sons Santos French Jr and Luis Antonio Young on [facility]. Telephone conversation with patient`s daughter Serene Young. . Advance Directives Living Will: Never completed Health Care Surrogate: Never completed Durable Power of Financial Institution Treasurer: Never completed Advance Directive Specifics Health Care Surrogate(s): Health care Proxys Son- Manolo Young Jr- [phone] cell(decision-maker)- Call for any medical decisions Son -Luis Antonio Young -[phone] cell/[phone](home) Daughter-Amy MartinesUyhpfv-[phone] cell Daughter-Belinda Blankenship [phone] Daughter-Hector Cast [phone] Telephone call to Luis Antonio Young (son) and Amy Martines (daughter) and they both opted out of decision making and agreed to defer all medical decision making to their brother Hector French Jr. 05/05/17 Telephone conversations with patients daughters-Belinda Blankenship and Hector Cast who opted out of medical decision making for patient. . Objective Vital Signs Date Time Temp Pulse Resp B/P (MAP) Pulse Ox O2 Delivery O2 Flow Rate FiO2 05/06/17 12:37 96 50 05/06/17 12:00 98.0 93 18 106/72 (83) 97 05/06/17 12:00 50 05/06/17 11:00 90 05/06/17 08:30 100 100 05/06/17 08:09 97 50 05/06/17 08:00 50 05/06/17 07:57 97.9 93 18 101/67 (78) 97 05/06/17 07:00 92 05/06/17 04:20 96 50 05/06/17 04:16 50 05/06/17 03:46 105 05/06/17 03:07 98.1 85 18 87/64 (72) 97 05/06/17 02:00 91/67 05/06/17 00:18 50 05/05/17 23:20 98.2 90 18 91/68 (76) 95 05/05/17 23:00 91 05/05/17 22:21 95 50 05/05/17 20:00 50 05/05/17 19:45 94 50 05/05/17 19:30 98.7 100 18 92/65 (74) 95 05/05/17 19:00 101 05/05/17 17:21 103 81/52 05/05/17 17:00 106 81/52 05/05/17 16:00 60 05/05/17 16:00 103 96/50 05/05/17 15:28 96 80 05/05/17 15:00 98.8 105 18 92/74 (80) 96 05/05/17 15:00 105 92/74 05/05/17 15:00 100 05/05/17 14:00 94 110/63 Intake & Output 05/06/17 05/06/17 07:00 19:00 Intake Total 4989 ml Output Total 1100.0 ml 200.0 ml Balance 3889.0 ml -200.0 ml IV Total 4989 ml Output Urine Total 650 ml Gastric Drainage Total 250 ml Tube Feeding Residual Discard 200.0 ml 200.0 ml # Bowel Movements 0 Physical Exam CONSTITUTIONAL/GENERAL: This is an adequately nourished patient, who is comatose TUBES/LINES/DRAINS: ETT, Parikh catheter, OG tube, SCDs SKIN: No jaundice, rashes, or lesions. Ecchymoses on upper extremities. No wounds seen anteriorly. Skin temperature appropriate. Not diaphoretic. HEAD: Atraumatic. Normocephalic. EYES: Pupils 3mm nonreactive to light. No scleral icterus. No injection or drainage. Fundi not examined. ENT: Hearing-unable to assess patient intubated and sedated. Nose without bleeding or purulent drainage. Moist oral mucosa. NECK: Trachea midline. Supple, nontender. CARDIOVASCULAR:Irregular rhythm without murmurs, gallops, or rubs. No JVD. Peripheral pulses symmetric. RESPIRATORY/CHEST: Symmetric, unlabored respirations. Clear to auscultation. Breath diminished in the bases. No wheezes, rales, or rhonchi. GASTROINTESTINAL: Abdomen distended. No bowel sounds GENITOURINARY: Without palpable bladder distension. Parikh catheter in place. MUSCULOSKELETAL: Extremities without clubbing, cyanosis, or edema. No joint tenderness or effusion noted. No calf tenderness. No mottling or clubbing. NEUROLOGICAL: Comatose, Intubated on mechanical ventilation. No pupillary reaction. Not following commands. PSYCHIATRIC: Unable to assess at this time. Diagnostic Tests Laboratory Laboratory Tests Test 05/04/17 03:50 05/04/17 08:30 05/04/17 16:28 05/04/17 22:37 White Blood Count 7.5 TH/MM3 (4.0-11.0) Red Blood Count 4.73 MIL/MM3 (4.50-5.90) Hemoglobin 14.8 GM/DL (13.0-17.0) Hematocrit 45.9 % (39.0-51.0) Mean Corpuscular Volume 97.1 FL (80.0-100.0) Mean Corpuscular Hemoglobin 31.3 PG (27.0-34.0) Mean Corpuscular Hemoglobin Concent 32.3 % (32.0-36.0) Red Cell Distribution Width 15.8 % (11.6-17.2) Platelet Count 110 TH/MM3 (150-450) Mean Platelet Volume 9.9 FL (7.0-11.0) Neutrophils (%) (Auto) 78.9 % (16.0-70.0) Lymphocytes (%) (Auto) 10.6 % (9.0-44.0) Monocytes (%) (Auto) 10.0 % (0.0-8.0) Eosinophils (%) (Auto) 0.1 % (0.0-4.0) Basophils (%) (Auto) 0.4 % (0.0-2.0) Neutrophils # (Auto) 5.9 TH/MM3 (1.8-7.7) Lymphocytes # (Auto) 0.8 TH/MM3 (1.0-4.8) Monocytes # (Auto) 0.8 TH/MM3 (0-0.9) Eosinophils # (Auto) 0.0 TH/MM3 (0-0.4) Basophils # (Auto) 0.0 TH/MM3 (0-0.2) CBC Comment DIFF FINAL Differential Comment Blood Urea Nitrogen 21 MG/DL (7-18) Creatinine 1.10 MG/DL (0.60-1.30) Random Glucose 244 MG/DL (74-106) Total Protein 6.1 GM/DL (6.4-8.2) Albumin 1.6 GM/DL (3.4-5.0) Calcium Level 8.0 MG/DL (8.5-10.1) Alkaline Phosphatase 54 U/L (45-117) Aspartate Amino Transf (AST/SGOT) 127 U/L (15-37) Alanine Aminotransferase (ALT/SGPT) 37 U/L (12-78) Total Bilirubin 2.6 MG/DL (0.2-1.0) Sodium Level 172 MEQ/L (136-145) 163 MEQ/L (136-145) 158 MEQ/L (136-145) Potassium Level 3.2 MEQ/L (3.5-5.1) 2.6 MEQ/L (3.5-5.1) Chloride Level 136 MEQ/L (98-107) Carbon Dioxide Level 30.1 MEQ/L (21.0-32.0) Anion Gap 6 MEQ/L (5-15) Estimat Glomerular Filtration Rate 79 ML/MIN (>89) Stool C. difficile Toxin (PCR) NEGATIVE (NEGATIVE) Stl C. difficile Toxin Epiderm 027 PRESUMPTIVE NEGATIVE Vancomycin Level Trough 17.1 MCG/ML (5.0-10.0) Test 05/05/17 03:05 05/05/17 10:00 05/05/17 10:15 05/05/17 11:18 Sodium Level 157 MEQ/L (136-145) 153 MEQ/L (136-145) Blood Gas Puncture Site RT RADIAL RT RADIAL Blood Gas Patient Temperature 98.6 98.6 Blood Gas HCO3 27 mmol/L (22-26) 25 mmol/L (22-26) Blood Gas Base Excess 0.4 mmol/L (-2-2) 0.9 mmol/L (-2-2) Blood Gas Oxygen Saturation 97 % (90-100) 96 % (90-100) Arterial Blood pH 7.26 (7.380-7.420) 7.44 (7.380-7.420) Arterial Blood Partial Pressure CO2 61 mmHg (38-42) 37 mmHg (38-42) Arterial Blood Partial Pressure O2 231 mmHG (61-120) 101 mmHG (61-120) Arterial Blood Oxygen Content 20.3 Vol % (12.0-20.0) 19.7 Vol % (12.0-20.0) Arterial Blood Carboxyhemoglobin 2.4 % (0-4) 2.6 % (0-4) Arterial Blood Methemoglobin 0.5 % (0-2) 0.4 % (0-2) Blood Gas Hemoglobin 14.5 G/DL (12.0-16.0) 14.5 G/DL (12.0-16.0) Oxygen Delivery Device VENTILATOR VENTILATOR Blood Gas Ventilator Setting AC10/550/PEEP5 26/700/PEEP5 Blood Gas Inspired Oxygen 100 % 100 % Blood Urea Nitrogen 17 MG/DL (7-18) Creatinine 1.21 MG/DL (0.60-1.30) Random Glucose 235 MG/DL (74-106) Total Protein 6.3 GM/DL (6.4-8.2) Albumin 1.4 GM/DL (3.4-5.0) Calcium Level 7.8 MG/DL (8.5-10.1) Alkaline Phosphatase 66 U/L (45-117) Aspartate Amino Transf (AST/SGOT) 63 U/L (15-37) Alanine Aminotransferase (ALT/SGPT) 32 U/L (12-78) Total Bilirubin 1.3 MG/DL (0.2-1.0) Potassium Level 3.9 MEQ/L (3.5-5.1) Chloride Level 119 MEQ/L (98-107) Carbon Dioxide Level 28.0 MEQ/L (21.0-32.0) Anion Gap 6 MEQ/L (5-15) Estimat Glomerular Filtration Rate 70 ML/MIN (>89) Test 05/05/17 11:34 05/05/17 12:55 05/05/17 14:10 05/05/17 17:00 Blood Gas Puncture Site LT RADIAL LT RADIAL LT RADIAL Blood Gas Patient Temperature 98.6 98.6 98.6 Blood Gas HCO3 25 mmol/L (22-26) 25 mmol/L (22-26) 28 mmol/L (22-26) Blood Gas Base Excess 1.1 mmol/L (-2-2) 0.9 mmol/L (-2-2) 1.2 mmol/L (-2-2) Blood Gas Oxygen Saturation 96 % (90-100) 98 % (90-100) 84 % (90-100) Arterial Blood pH 7.46 (7.380-7.420) 7.43 (7.380-7.420) 7.23 (7.380-7.420) Arterial Blood Partial Pressure CO2 35 mmHg (38-42) 38 mmHg (38-42) 69 mmHg (38-42) Arterial Blood Partial Pressure O2 99 mmHG (61-120) 321 mmHG (61-120) 58 mmHG (61-120) Arterial Blood Oxygen Content 20.0 Vol % (12.0-20.0) 21.3 Vol % (12.0-20.0) 17.9 Vol % (12.0-20.0) Arterial Blood Carboxyhemoglobin 2.5 % (0-4) 2.1 % (0-4) 1.6 % (0-4) Arterial Blood Methemoglobin 0.5 % (0-2) 0.5 % (0-2) 0.5 % (0-2) Blood Gas Hemoglobin 14.8 G/DL (12.0-16.0) 15.0 G/DL (12.0-16.0) 15.2 G/DL (12.0-16.0) Oxygen Delivery Device VENTILATOR VENTILATOR ETT Blood Gas Ventilator Setting 26/700/PEEP5 22/700/PEEP12 Blood Gas Inspired Oxygen 100 % 100 % 100 % Blood Gas Liter Flow 15 L/M Sodium Level 147 MEQ/L (136-145) Vancomycin Level Trough 26.2 MCG/ML (5.0-10.0) Test 05/05/17 22:25 05/06/17 03:48 05/06/17 10:20 Sodium Level 145 MEQ/L (136-145) 141 MEQ/L (136-145) 139 MEQ/L (136-145) White Blood Count 10.1 TH/MM3 (4.0-11.0) Red Blood Count 4.50 MIL/MM3 (4.50-5.90) Hemoglobin 13.7 GM/DL (13.0-17.0) Hematocrit 43.0 % (39.0-51.0) Mean Corpuscular Volume 95.5 FL (80.0-100.0) Mean Corpuscular Hemoglobin 30.5 PG (27.0-34.0) Mean Corpuscular Hemoglobin Concent 32.0 % (32.0-36.0) Red Cell Distribution Width 15.8 % (11.6-17.2) Platelet Count 89 TH/MM3 (150-450) Mean Platelet Volume 10.2 FL (7.0-11.0) Neutrophils (%) (Auto) 80.8 % (16.0-70.0) Lymphocytes (%) (Auto) 8.6 % (9.0-44.0) Monocytes (%) (Auto) 8.5 % (0.0-8.0) Eosinophils (%) (Auto) 1.8 % (0.0-4.0) Basophils (%) (Auto) 0.3 % (0.0-2.0) Neutrophils # (Auto) 8.1 TH/MM3 (1.8-7.7) Lymphocytes # (Auto) 0.9 TH/MM3 (1.0-4.8) Monocytes # (Auto) 0.9 TH/MM3 (0-0.9) Eosinophils # (Auto) 0.2 TH/MM3 (0-0.4) Basophils # (Auto) 0.0 TH/MM3 (0-0.2) CBC Comment AUTO DIFF Differential Comment AUTO DIFF CONFIRMED Platelet Estimate LOW (NORMAL) Platelet Morphology Comment NORMAL (NORMAL) Blood Urea Nitrogen 19 MG/DL (7-18) Creatinine 1.49 MG/DL (0.60-1.30) Random Glucose 311 MG/DL (74-106) Total Protein 6.0 GM/DL (6.4-8.2) Albumin 1.3 GM/DL (3.4-5.0) Calcium Level 7.8 MG/DL (8.5-10.1) Magnesium Level 1.5 MG/DL (1.5-2.5) Alkaline Phosphatase 97 U/L (45-117) Aspartate Amino Transf (AST/SGOT) 53 U/L (15-37) Alanine Aminotransferase (ALT/SGPT) 30 U/L (12-78) Total Bilirubin 1.4 MG/DL (0.2-1.0) Potassium Level 4.3 MEQ/L (3.5-5.1) Chloride Level 108 MEQ/L (98-107) Carbon Dioxide Level 23.6 MEQ/L (21.0-32.0) Anion Gap 9 MEQ/L (5-15) Estimat Glomerular Filtration Rate 56 ML/MIN (>89) Vancomycin Level Trough 23.8 MCG/ML (5.0-10.0) Result Diagram: 05/06/17 0348 05/06/17 1020 Imaging Last 48 hours Impressions Chest X-Ray 05/06/17 06 Signed Impressions: Service Date/Time: Saturday, May 06, 2017 03:48 - CONCLUSION: No significant change has occurred. Russ Lang MD Brain Flow Nuclear Medicine 05/06/17 0600 Signed Impressions: Service Date/Time: Saturday, May 06, 2017 08:26 - CONCLUSION: No intracranial blood flow. Italo Chirinos MD FACR Procedures 05/01/2017-intubation 05/01/2017-left IJ central line placement . Other EEG Study 05/05/17- Abnormal study which is most consistent with electrocerebral silence. . Assessment and Plan Disease Oriented Problem List: (1) Cardiac arrest (2) Respiratory failure (3) Encephalopathy (4) Acute kidney injury (5) Lactic acidosis Symptom Scale: (1) Shortness of breath 0-10 Scale: Unable to quantify Comment: s/p Cardiac arrest. Chest Xray 05/03/17 revealed bilateral mostly basilar airspace disease. . Pertinent Non-Medical Issues Psychosocial:Patient was born and raised in [place]. He is . He has 6 adult children, three daughters and 2 sons. Patient did not serve in the . 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 Spiritual: Yazdanism Legal: Patient does not have any advanced directives Ethical issues impacting care: None identified at this time . Important Contacts Son- Manolo Young Jr- [phone] cell(decision-maker)Call for any medical decisions Son -Luis Antonio Young -[phone] cell/[phone](home) Daughter-Amy MartinesEwgehj-[phone] cell Daughter-Belinda Blankenship [phone] Daughter-Hector Cast [phone] Telephone call to Luis Antonio Young (son) and Amy Martines (daughter) and they both agreed to defer all medical decision making to their brother Hector French Jr. 05/05/17 Telephone conversations with patients daughters-Belinda Blankenship and Hector Cast who opted out of medical decision making for patient. . Prognosis Mr. Valencia is a 77 years old with a past medical history of prostate cancer, and hypertension. Patient was brought in by EMS after a cardiac arrest. Per EMS report, patient had return of spontaneous circulation 15-20minutes after they had administered 3 amps epinephrine and 1 amp bicarb. Due to prolonged return of spontaneous circulation, and diffusely abnormal brain with edema and loss of montero-white differentiation presumably a global hypoxic event on CT head on arrival, patient is at risk for further complications, deterioration and decline. . Code Status: No Code Plan PLAN: Legal decision maker: Patient is currently intubated, sedated on mechanical ventilation and unable to participate in medical decision making. It is not known if patient will be able to regain capacity at this time. Patient son Hector French Jr will serve as his health care proxy. Goals: Patient CODE STATUS: No Code DNR- Patient`s brain flow study revealed no cerebral flow study. Health Care Proxy Hector French Jr requested that patient be extubated today at 1800hrs. SYMPTOMS: * Shortness of breath: Patient suffered a cardiac arrest. Chest x-ray 05/01 revealed improvement of pulmonary vascular congestion bilaterally and right basilar patient is consistent with possible pneumonia. Currently intubated and on mechanical ventilation. FiO2 45% with O2 saturation in the mid and low 90s. Palliative care will continue to follow the patient during hospital course as condition evolves, to assist patient/decision-maker with understanding of their medical conditions, weighing benefits/burdens of treatment options, for clarification of goals of treatment. Additionally will assist with any symptoms of palliative concern. Attestation To help prompt me to consider important information that might be impacting today's encounter and assessment, information from prior notes written by myself or my colleagues may have been "brought forward" into today's note. My signature on this note, however, is an attestation that I personally performed the exam, history, and/or decision-making noted today, and, unless otherwise indicated, the interactions with patient, family, and staff as well as the review of records all occurred today. I also attest that the listed assessment and stated plan reflect my best clinical judgment today based on the combination of historical information, prior notes, and today's exam/ interactions. When time spent is documented, it refers only to time spent today by the signer, or if indicated, combined time spent today by collaborating physician/nurse practitioner. Norberto Villarreal May 06, 2017 14:39
== END 2017-05-06 20:44 | disposition expired | DRG 207 ==
LOC: NEPC 17:06 → NEDA 19:33 → HCVI 22:19
PROVIDERS: ADMIT Internal Medicine Critical Care Medicine; ATTEND Internal Medicine Critical Care Medicine
PROC: 05HN33Z Insertion of Infusion Device into Left Internal Jugular Vein, Percutaneous Approach (ICD-10-PCS; principal; 2017-04-30)
PROC: 5A1955Z Respiratory Ventilation, Greater than 96 Consecutive Hours (ICD-10-PCS; 2017-04-30)
PROC: 0D9670Z Drainage of Stomach with Drainage Device, Via Natural or Artificial Opening (ICD-10-PCS; 2017-04-30)
PROC: 0T9B70Z Drainage of Bladder with Drainage Device, Via Natural or Artificial Opening (ICD-10-PCS; 2017-04-30)
DX: J96.01 Acute respiratory failure with hypoxia (principal); R57.0 Cardiogenic shock; J69.0 Pneumonitis due to inhalation of food and vomit; G93.1 Anoxic brain damage, not elsewhere classified; N17.9 Acute kidney failure, unspecified; E87.2 Acidosis; M62.82 Rhabdomyolysis; G25.3 Myoclonus; I82.619 Acute embolism and thrombosis of superficial veins of unspecified upper extremity; I10 Essential (primary) hypertension; Z85.46 Personal history of malignant neoplasm of prostate; Z51.5 Encounter for palliative care; Z66 Do not resuscitate
CPT/HCPCS: 36556; 36600; 51702; 70450; 70551; 71045; 78606; 80048; 80053; 80202; 81001; 81003; 82550; 82552; 82565; 82805; 82948; 83605; 83735; 83930; 83935; 84100; 84132; 84295; 84484; 85007; 85025; 85027; 85610; 85730; 87040; 87070; 87086; 87205; 87493; 87641; 87804; 93005; 93306; 93970; 94002; 94003; 94640; 94664; 95819; 96365; 96375; A9539; J0171; J0461; J1644; J1815; J1953; J2060; J2250; J2543; J2597; J3370; J3480; J7030; J7040; J7042; J7050; J7060; J7070